=== PATIENT | male | born 1970 | race American Indian/Alaskan Native ===

== ENCOUNTER 2016-09-11 22:31 | Inpatient (IN) | payer MEDICAID, OTHER ==
[2016-09-11 22:31] VITALS: BMI 40.8
--- NOTE | 2016-09-12 00:17 | C.PDOC ---
History Of Present Illness Patient presents to the ER stating he hears voices telling him to hurt himself. Patient states he wants to take all of his blood pressure medication. Denies any homicidal ideation or physical complaints. Time Seen by Provider: 09/12/16 00:17 Chief Complaint (Nursing): Psychiatric Evaluation History Per: Patient History/Exam Limitations: no limitations Onset/Duration Of Symptoms: Hrs Current Symptoms Are (Timing): Still Present Suicide/Self Injury Attempted (Context): None Modifying Factor(s): None Severity: None Pain Scale Rating Of: 0 Associated Symptoms: Suicidal Thoughts, Suicidal Plan. denies: Depression Involuntary Hold By: None Recent travel outside of the [place]: No Past Medical History Reviewed: Historical Data, Nursing Documentation, Vital Signs Vital Signs: Last Vital Signs Temp 98 F 09/11/16 22:45 Pulse 86 09/11/16 22:45 Resp 20 09/11/16 22:45 BP 128/81 09/11/16 22:45 Pulse Ox 98 09/12/16 01:37 - Medical History PMH: Anxiety, Arthritis, Asthma, Bipolar Disorder, Cardia Arrhythmia ( Bradycardia), Depression, Diabetes, Gastritis, HTN, Hypercholesterolemia, Hyperlipidemia, Hypothyroidism (Synthroid), Schizophrenia Surgical History: Coronary Stent (2), Pacemaker - [facility] Procedures GROUP PSYCHOTHERAPY (07/11/16) INDIVID PSYCHOTHERAP NEC (10/05/14) INDIVIDUAL PSYCHOTHERAPY, BEHAVIORAL (02/04/16) INDIVIDUAL PSYCHOTHERAPY, COGNITIVE-BEHAVIORAL (04/27/16) INDIVIDUAL PSYCHOTHERAPY, SUPPORTIVE (04/27/16) OTHER GROUP THERAPY (10/05/14) PSYCHIAT DRUG THERAP NEC (11/30/14) Family History: States: CAD - Social History Hx Tobacco Use: Yes Hx Alcohol Use: Yes Hx Substance Use: No - Immunization History Hx Tetanus Toxoid Vaccination: Yes Hx Influenza Vaccination: Yes Hx Pneumococcal Vaccination: Yes Review Of Systems Constitutional: Negative for: Fever, Chills Gastrointestinal: Negative for: Nausea, Vomiting, Diarrhea Psych: Positive for: Suicidal ideation. Negative for: Other (Homicidal ideation ) Physical Exam - Physical Exam Appears: Non-toxic Skin: Warm, Dry Oral Mucosa: Moist Chest: Symmetrical, No Tenderness Cardiovascular: Rhythm Regular, No Murmur Respiratory: No Rales, No Rhonchi, No Wheezing Gastrointestinal/Abdominal: Soft, No Tenderness Neurological/Psych: Oriented x3 ED Course And Treatment - Laboratory Results Result Diagrams: 09/12/16 00:42 09/12/16 00:42 O2 Sat by Pulse Oximetry: 98 (Room air) Pulse Ox Interpretation: Normal Progress Note: Consulted case with crisis. Disposition Discussed With : Matheus Vázquez Comment: accepted the pt on his service and took over the care at 2:29 PM Doctor Will See Patient In The: Hospital Counseled Patient/Family Regarding: Studies Performed, Diagnosis - Disposition Disposition: HOSPITALIZED Disposition Time: :17 Condition: FAIR - POA Present On Arrival: None - Clinical Impression Clinical Impression: Depression - Scribe Statement The provider has reviewed the documentation as recorded by the Scribe Rocky Chavez All medical record entries made by the Scribe were at my direction and personally dictated by me. I have reviewed the chart and agree that the record accurately reflects my personal performance of the history, physical exam, medical decision making, and the department course for this patient. I have also personally directed, reviewed, and agree with the discharge instructions and disposition. Decision To Admit - Pt Status Changed To: Hospital Disposition Of: Inpatient - Admit Certification Admit to Inpatient:: After my assessment, the patient will require hospitalization for at least two midnights. This is because of the severity of symptoms shown, intensity of services needed, and/or the medical risk in this patient being treated as an outpatient. - InPatient: Physician Admission Certification: I certify that this patient requires 2 or more midnights of care for the following reason:: After my assessment, the patient will require hospitalization for at least two midnights. This is because of the severity of symptoms shown, intensity of services needed, and/or the medical risk in this patient being treated as an outpatient. - . Bed Request Type: Psychiatry Admitting Physician: Matheus Vázquez Patient Diagnosis: Depression
[2016-09-12 00:47] LABS: BASO # 0.1 K/uL (0.0-0.2); BASO % 1.1 % (0.0-2.0); EOS # 0.3 K/uL (0.0-0.7); EOS % 4.6 % (0.0-4.0); HEMOGLOBIN 10.9 g/dL (12.0-18.0); LYMPH # 1.8 K/uL (1.0-4.3); LYMPH % 24.9 % (20.0-40.0); MEAN CELL VOLUME 78.4 fL (80.0-94.0); MEAN CORPUSCULAR HGB CONC 31.9 g/dL (33.0-37.0); MEAN PLATELET VOLUME 7.8 fL (7.2-11.7); MONO # 0.5 K/uL (0.0-0.8); MONO % 6.8 % (0.0-10.0); NEUT # 4.4 K/uL (1.8-7.0); NEUT % 62.6 % (50.0-75.0); RBC 4.37 Mil/uL (4.40-5.90); RED CELL DISTRIBUTION WIDTH 17.5 % (11.5-14.5); WHITE BLOOD COUNT 7.1 K/uL (4.8-10.8)
[2016-09-12 00:56] LABS: SQUAMOUS EPITHIAL 1 /hpf (0-5); URINE BACTERIA RARE (<OCC); URINE BILIRUBIN NEGATIVE (NEGATIVE); URINE BLOOD NEGATIVE (NEGATIVE); URINE CLARITY Hazy (Clear); URINE COLOR Yellow (YELLOW); URINE GLUCOSE (UA) 2+ mg/dL (Normal); URINE LEUKOCYTE ESTERASE 1+ Leu/uL (Negative); URINE NITRATE NEGATIVE (NEGATIVE); URINE PROTEIN NEGATIVE (NEGATIVE); URINE UROBILINOGEN NORMAL mg/dL (0.2-1.0)
[2016-09-12 00:58] LABS: BARBITURATES, UR NEGATIVE (NEGATIVE)
[2016-09-12 00:59] LABS: ALB/GLOB RATIO 1.2 (1.0-2.1); AST/SGOT 23 U/L (17-59); BENZODIAZEPINES, UR NEGATIVE (NEGATIVE); GFR AFRICAN-AMERICAN > 60; GFR NON-AFRICAN AMERICAN > 60
[2016-09-12 01:00] LABS: ALT/SGPT 22 U/L (21-72); BLOOD UREA NITROGEN 15 mg/dL (9-20); CALCIUM 9.1 mg/dl (8.6-10.4)
[2016-09-12 01:01] LABS: OPIATES, UR NEGATIVE (NEGATIVE)
[2016-09-12 01:02] LABS: PHENCYCLIDINE, UR NEGATIVE (NEGATIVE)
[2016-09-12] MEDS ORDERED: Pneumococcal 23-Valent Vaccine IM ONE (05:09)
--- NOTE | 2016-09-12 11:31 | PCM.PSYCH ---
Initial Psychiatric Evaluation - Initial Psychiatric Evaluation Type of Admission: Voluntary Legal Status: Capacity Chief Complaint (in patient's own words): "I am depressed...hearing voices" History of Present Illness and Precipitating Events: The patient is seen, chart reviewed and case discussed. He is well-known to the senior writer and staff here from numerous previous admissions. This is a 46-year-old -[place]izen Of [place] male, single with no child, on disability , living alone in [place]. The patient admits to not following with referral to any program, i.e. [facility] in [place], because he feels "paranoid" among people. He also ran out of his medications recently, Lexapro and Abilify, but his [place] chart indicates he was given Prozac and Haldol. He states he does take his medications for medical reasons. He gets admitted every other month between [place] at [facility] due to his noncompliance. He used to take alcohol and cocaine but now he denies. He smokes 6 cigarettes a day. Currently, he reports depressive sxs and paranoia and AH telling him deragatory things or telling him to kill self. No plans or intentions now. PMH: DM, HTN psych hx: Schizophrenia (dx at 21y/o) Family psych hx: Depression (sister) Social hx: single, no children. Lives on his own. 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 Current Medications: Active Medications Generic Name Dose Route Start Last Admin Trade Name Freq PRN Reason Stop Dose Admin Acetaminophen 650 mg 09/12/16 11:26 Tylenol 325mg Tab PO Q6 PRN Pain, moderate (4-7) Amlodipine Besylate 5 mg 09/12/16 10:00 09/12/16 10:36 Norvasc PO 5 mg DAILY [facility] Administration Aripiprazole 10 mg 09/12/16 10:00 09/12/16 10:36 Abilify PO 10 mg DAILY [facility] Administration Aspirin 81 mg 09/12/16 10:00 Aspirin Chewable PO DAILY [facility] Clopidogrel Bisulfate 75 mg 09/12/16 10:00 Plavix PO DAILY [facility] Docusate Sodium 100 mg 09/12/16 10:00 09/12/16 10:36 Colace PO 100 mg BID [facility] Administration Escitalopram Oxalate 10 mg 09/12/16 11:30 Lexapro PO DAILY [facility] Famotidine 20 mg 09/12/16 10:00 09/12/16 10:36 Pepcid PO 20 mg BID [facility] Administration Ferrous Sulfate 325 mg 09/12/16 14:00 Feosol PO TID [facility] Insulin Glargine 30 unit 09/12/16 22:00 Lantus SC HS [facility] Insulin Human Regular 15 unit 09/12/16 11:30 Novolin R SC ACHS [facility] Nicotine 1 patch 09/12/16 11:30 Nicoderm Cq TD DAILY [facility] Rosuvastatin Calcium 10 mg 09/12/16 22:00 Crestor PO HS [facility] Past Psychiatric History - Past Psychiatric History Previous Treatment History: Inpatient Pertinent Medical Hx (Current Medical&Sleep Prob, Allergies): Allergies Allergy/AdvReac Type Severity Reaction Status Date / Time No Known Allergies Allergy Verified 08/16/16 06:58 Insulin Lispro [humALOG] 15 units SC AC #0 ml 03/30/16 Pantoprazole [Protonix EC Tab] 40 mg PO DAILY #30 ect 05/09/16 ARIPiprazole [Abilify] 10 mg PO DAILY #30 tab 07/17/16 Aspirin [Ecotrin] 81 mg PO DAILY 07/17/16 Atorvastatin [Lipitor] 20 mg PO HS tab 07/17/16 Citalopram [celEXA] 20 mg PO DAILY #30 tab 07/17/16 Clopidogrel [Plavix] 75 mg PO DAILY #30 tab 07/17/16 Insulin Detemir [Levemir] 48 units SC HS vial 07/17/16 Lisinopril [Zestril] 10 mg PO DAILY tab 07/17/16 amLODIPine [Norvasc] 5 mg PO DAILY tab 07/17/16 traZODone [Desyrel] 100 mg PO HS #30 tab 07/17/16 Aspirin [Aspirin Chewable] 81 mg PO DAILY #14 08/21/16 Atorvastatin [Lipitor] 20 mg PO DIN #14 tab 08/21/16 Benztropine [Cogentin] 1 mg PO HS #14 tab 08/21/16 Clopidogrel [Plavix] 75 mg PO DAILY #14 tab 08/21/16 Docusate [Colace] 100 mg PO BID #14 cap 08/21/16 FLUoxetine [Prozac] 40 mg PO DAILY #14 cap 05/30/17 Ferrous Sulfate [Feosol] 324 mg PO TID #14 ect 08/21/16 Haloperidol [Haldol] 5 mg PO DAILY #14 tab 08/21/16 Insulin Detemir [Levemir] 40 unit SC HS #14 unit 08/21/16 Insulin Lispro [humALOG] 15 units SC AC ml 08/21/16 LORazepam [Ativan] 0.5 mg PO BID PRN #14 tab 08/21/16 Lisinopril [Zestril] 10 mg PO DAILY #14 tab 08/21/16 Pantoprazole [Protonix EC Tab] 40 mg PO ACB #14 ect 08/21/16 amLODIPine [Norvasc] 5 mg PO DAILY #14 tab 08/21/16 traZODone [Desyrel] 100 mg PO HS PRN #14 tab 08/21/16 Review of Systems - Neurological Neurological: UNREMARKABLE - Psychiatric Psychiatric: Abnormal Sleep Pattern, Anhedonia, Anxiety, Depression, Difficulty Concentrating, Hallucinations, Hopelessness. absent: Homicidal Ideation, Suicidal Ideation Mental Status Examination - Personal Presentation Personal Presentation: Looks older than stated age - Affect Affect: Blunted - Motor Activity Motor Activity: Calm - Reliability in Providing Information Reliability in Providing Information: Fair - Speech Speech: Organized - Mood Mood: Depressed, Anxious - Formal Thought Process Formal Thought Process: Hallucinations, Paranoia, Perservation - Cognitive Functions Orientation: Person, Place, Situation, Time Sensorium: Alert Attention/Concentration: Attentive Estimate of Intelligence: Average Judgement: Intact, as evidence by: Insight regarding need for hospitalization Memory: Recent intact, as evidence by: Ability to recall events of the day, Remote intact, as evidenced by: Abilit to recall sig. life events - Risk Risk: Diminished functioning - Strength & Assets Inventory Strength & Assets Inventory: Cooperative - Limitations Limitations: Living alone DSM 5 DX - DSM 5 DSM 5 Diagnosis: Schizoaffective d/o - depressed - Recommended/Plan of Treatment Treatment Recommendations and Plan of Treatment: Abilify for AH and paranoia Lexapro for depression and anxiety gabapentin for anxiety Continue medical meds Attend groups and activities CBT and support Monitor labs re Iron deficiency anemia and DM Refer to [facility] Outpt program as she is refusing and has never regularly attended any DTP or partial program so fa 34 min Projected ELOS: 7 days Prognosis: good with treatment Discharge Plan and Discharge Criteria: no SI, AVH or del Refer to outpatient program - Smoking Cessation Smoking Cessation Initiated: Yes
[2016-09-12] MEDS: (Novolin R) Insulin Human Regular 100 units/ml vial SC SCH ×3 (11:46→21:35)
[2016-09-12] MEDS: (Lantus) Insulin Glargine, Recombinant SC SCH (21:19)
[2016-09-13] MEDS: (Novolin R) Insulin Human Regular 100 units/ml vial SC SCH ×4 (08:43→21:14)
--- NOTE | 2016-09-13 14:12 | PCM.PYCHPN ---
Psychiatric Progress Note - Psychiatric Progress Note Patient seen today, length of contact: 16 min Patient Chief Complaint: "I am still hearing voices" Problems Identified/Issues Discussed: The pt is seen, chart reviewed, case discussed with staff. The pt is compliant with medications and reports no side-effects. Symptoms are improving but needs more time to stabilize. After care discussed, support and psychoeducation given. Medication Change: No Medical Record Reviewed: Yes Mental Status Examination - Cognitive Function Orientation: Person, Place, Situation, Time Memory: Impaired Attention: Poor Concentration: Poor Association: WNL Fund of Knowledge: Poor - Mood Mood: Depressed, Anxious - Affect Affect: Blunted - Speech Speech: Slurred, Soft - Formal Thought Process Formal Thought Process: Hallucinations, Paranoia - Suicidal Ideation Suicidal Ideation: No - Homicidal Ideation Homicidal Ideation: No Goal/Treatment Plan - Goal/Treatment Plan Need for Continued Stay: Discharge may exacerbated symptoms, Severe functional impairment Progress Toward Problem(s) and Goals/Treatment Plan: Abilify for AH and paranoia Lexapro for depression and anxiety Gabapentin for anxiety Continue medical meds Attend groups and activities CBT and support Monitor labs re Iron deficiency anemia and DM Refer to [facility] Outpt program Estimated Date of D/C: 09/18/16
[2016-09-13] MEDS: Ergocalciferol 50,000 Intl Units Cap PO SCH (17:28)
[2016-09-13 20:46] LABS: IRON 46 ug/dL (49-181)
[2016-09-13 20:57] LABS: % IRON SATURATION 14 (20-55); TOTAL IRON BINDING CAPACITY 332 ug/dL (250-450)
[2016-09-13 21:12] LABS: FREE T4 0.88 ng/dL (0.78-2.19)
[2016-09-13] MEDS: (Lantus) Insulin Glargine, Recombinant SC SCH (21:12)
[2016-09-14] MEDS: (Novolin R) Insulin Human Regular 100 units/ml vial SC SCH ×4 (08:39→21:21)
--- NOTE | 2016-09-14 17:32 | PCM.PYCHPN ---
Psychiatric Progress Note - Psychiatric Progress Note Patient seen today, length of contact: 16 min Patient Chief Complaint: "I am depressed" Problems Identified/Issues Discussed: The pt is seen, chart reviewed, case discussed with staff. Support given, CBT used briefly No new symptoms reported, improving slowly and needs some more time No SEs from medications, risks discussed. After care discussed -SW will now refer to [facility] as [facility] rejected him due to numerous no-shows [facility] Med[facility] Change: No Medical Record Reviewed: Yes Mental Status Examination - Cognitive Function Orientation: Person, Place, Situation, Time Memory: Impaired Attention: Poor Concentration: Poor Association: WNL Fund of Knowledge: Poor - Mood Mood: Depressed, Anxious - Affect Affect: Blunted - Speech Speech: Slurred, Soft - Formal Thought Process Formal Thought Process: Hallucinations, Paranoia - Suicidal Ideation Suicidal Ideation: No - Homicidal Ideation Homicidal Ideation: No Goal/Treatment Plan - Goal/Treatment Plan Need for Continued Stay: Discharge may exacerbated symptoms, Severe functional impairment Progress Toward Problem(s) and Goals/Treatment Plan: Abilify for AH and paranoia Lexapro for depression and anxiety Gabapentin for anxiety Continue medical meds Attend groups and activities CBT and support Monitor labs re Iron deficiency anemia and DM - he does have BERENICE. Stool blood pending. [facility] Outpt program but consider [facility] too, or PACT Estimated Date of D/C: 09/18/16
[2016-09-14] MEDS: (Lantus) Insulin Glargine, Recombinant SC SCH (21:16)
[2016-09-15] MEDS: (Novolin R) Insulin Human Regular 100 units/ml vial SC SCH ×2 (07:56→11:58)
[2016-09-15] MEDS: (Novolog) Insulin Aspart, Recombinant 100 u/ml 10 ml vial SC SCH (17:23)
[2016-09-15] MEDS: (Lantus) Insulin Glargine, Recombinant SC SCH (21:29)
[2016-09-16 07:00] VITALS: O2SAT 98
[2016-09-16] MEDS: (Novolog) Insulin Aspart, Recombinant 100 u/ml 10 ml vial SC SCH ×3 (08:43→16:12)
[2016-09-16] MEDS: (Lantus) Insulin Glargine, Recombinant SC SCH (21:41)
--- NOTE | 2016-09-16 23:48 | PCM.PYCHPN ---
Psychiatric Progress Note - Psychiatric Progress Note Patient seen today, length of contact: 15 MIN Patient Chief Complaint: I HEAR THE VOICES MOSTLY AT [place] Medical Problems: NOTHING ACUTE Diagnostic Results: REVIEWED DSM 5 Symptoms Update: AUDITORY HALLUCINATIONS Medication Change: Yes (INCREASE ABILIFY) Medical Record Reviewed: Yes Mental Status Examination - Cognitive Function Orientation: Person, Place, Situation, Time Memory: Impaired Attention: Poor Concentration: WNL Association: WNL Fund of Knowledge: Poor - Mood Mood: Depressed, Anxious - Affect Affect: Blunted - Speech Speech: Slurred, Soft - Formal Thought Process Formal Thought Process: Hallucinations, Paranoia - Suicidal Ideation Suicidal Ideation: No - Homicidal Ideation Homicidal Ideation: No Goal/Treatment Plan - Goal/Treatment Plan Need for Continued Stay: Remain at risks for inpatient hospitalization, Discharge may exacerbated symptoms, Severe functional impairment Progress Toward Problem(s) and Goals/Treatment Plan: SCHIZOAFFECTIVE DISORDER DEPRESSED ABILIFY INCREASE ATTENDING GROUPS Estimated Date of D/C: 09/18/16 - Smoking Cessation Smoking Cessation Initiated: Yes
--- NOTE | 2016-09-17 02:40 | PCM.PYCHPN ---
Psychiatric Progress Note - Psychiatric Progress Note Patient seen today, length of contact: 15 MIN Patient Chief Complaint: THE VOICESARE NOT BAS LAST NIGHT Problems Identified/Issues Discussed: SYMPTOM MANAGEMENT GROUNDING DISTRACTION Medical Problems: NOTHING ACUTE Diagnostic Results: REVIEWED DSM 5 Symptoms Update: Medication Change: No Medical Record Reviewed: Yes Mental Status Examination - Cognitive Function Orientation: Person, Place, Situation, Time Memory: Intact Attention: WNL Concentration: WNL Association: WNL Fund of Knowledge: WNL - Mood Mood: Anxious - Speech Speech: Appropriate - Formal Thought Process Formal Thought Process: Hallucinations - Suicidal Ideation Suicidal Ideation: No - Homicidal Ideation Homicidal Ideation: No Goal/Treatment Plan - Goal/Treatment Plan Need for Continued Stay: Remain at risks for inpatient hospitalization, Discharge may exacerbated symptoms, Severe functional impairment Progress Toward Problem(s) and Goals/Treatment Plan: SCHIZOAFFECTIVE DISORDER DEPRESSED [place] [facility] MED MANAGEMENT Estimated Date of D/C: 09/18/16 - Smoking Cessation Smoking Cessation Initiated: No
[2016-09-17] MEDS: (Novolog) Insulin Aspart, Recombinant 100 u/ml 10 ml vial SC SCH ×3 (08:47→16:42)
[2016-09-17] MEDS ORDERED: Pantoprazole 40 mg EC Tab PO SCH (10:00)
--- NOTE | 2016-09-17 13:47 | PCM.PYCHPN ---
Psychiatric Progress Note - Psychiatric Progress Note Patient seen today, length of contact: 15 min Patient Chief Complaint: "I am a little better" Problems Identified/Issues Discussed: The pt is seen, chart reviewed, case discussed with staff. Support given, CBT used briefly No new symptoms reported, improving slowly and needs some more time No SEs from medications, risks discussed. After care discussed Medication Change: No Medical Record Reviewed: Yes Mental Status Examination - Cognitive Function Orientation: Person, Place, Situation, Time Memory: Intact Attention: WNL Concentration: WNL Association: WNL Fund of Knowledge: WNL - Mood Mood: Anxious - Affect Affect: Blunted - Speech Speech: Appropriate - Formal Thought Process Formal Thought Process: Hallucinations - Suicidal Ideation Suicidal Ideation: No - Homicidal Ideation Homicidal Ideation: No Goal/Treatment Plan - Goal/Treatment Plan Need for Continued Stay: Remain at risks for inpatient hospitalization, Discharge may exacerbated symptoms, Severe functional impairment Progress Toward Problem(s) and Goals/Treatment Plan: Abilify for AH and paranoia Lexapro for depression and anxiety Gabapentin for anxiety Continue medical meds Attend groups and activities CBT and support [facility] but consider [facility] too, or [facility] Estimated Date of D/C: 09/18/16
[2016-09-17] MEDS: (Lantus) Insulin Glargine, Recombinant SC SCH (21:39)
[2016-09-18] MEDS: (Novolog) Insulin Aspart, Recombinant 100 u/ml 10 ml vial SC SCH ×3 (08:38→16:44)
[2016-09-18] MEDS: (Lantus) Insulin Glargine, Recombinant SC SCH (21:41)
--- NOTE | 2016-09-18 23:24 | PCM.PYCHPN ---
Psychiatric Progress Note - Psychiatric Progress Note Patient seen today, length of contact: 15 min Patient Chief Complaint: "OK" Problems Identified/Issues Discussed: The pt is seen, chart reviewed, case discussed with staff. No SEs from medications, risks discussed. After care discussed - [facility] if denied by [facility] Support given Getting close to dc as he is almost baseline Medication Change: No Medical Record Reviewed: Yes Mental Status Examination - Cognitive Function Orientation: Person, Place, Situation, Time Memory: Intact Attention: WNL Concentration: WNL Association: WNL Fund of Knowledge: WNL - Mood Mood: Anxious - Affect Affect: Blunted - Speech Speech: Appropriate - Formal Thought Process Formal Thought Process: Hallucinations - Suicidal Ideation Suicidal Ideation: No - Homicidal Ideation Homicidal Ideation: No Goal/Treatment Plan - Goal/Treatment Plan Need for Continued Stay: Remain at risks for inpatient hospitalization, Discharge may exacerbated symptoms, Severe functional impairment Progress Toward Problem(s) and Goals/Treatment Plan: Abilify for AH and paranoia Lexapro for depression and anxiety Gabapentin for anxiety Continue medical meds Attend groups and activities CBT and support Refer to [facility] program but consider [facility] too, or [facility] Estimated Date of D/C: 09/20/16 If changed, why: Not ready - still hearing voices at times
[2016-09-19] MEDS: (Novolog) Insulin Aspart, Recombinant 100 u/ml 10 ml vial SC SCH ×3 (08:34→17:21)
--- NOTE | 2016-09-19 10:27 | PCM.PYCHPN ---
Psychiatric Progress Note - Psychiatric Progress Note Patient seen today, length of contact: 16 min Patient Chief Complaint: "No complaints" Problems Identified/Issues Discussed: The pt is seen, chart reviewed, case discussed with staff. No SEs from medications, risks discussed again/ After care discussed - [facility] doesn't take his insurance. [facility] will call 2 other clinics. The pt does not want partial or day treatment Support given Medication Change: No Medical Record Reviewed: Yes Mental Status Examination - Cognitive Function Orientation: Person, Place, Situation, Time Memory: Intact Attention: WNL Concentration: WNL Association: WNL Fund of Knowledge: WNL - Mood Mood: Anxious - Affect Affect: Blunted - Speech Speech: Appropriate - Formal Thought Process Formal Thought Process: Hallucinations - Suicidal Ideation Suicidal Ideation: No - Homicidal Ideation Homicidal Ideation: No Goal/Treatment Plan - Goal/Treatment Plan Need for Continued Stay: Remain at risks for inpatient hospitalization, Discharge may exacerbated symptoms, Severe functional impairment Progress Toward Problem(s) and Goals/Treatment Plan: Abilify for AH and paranoia Lexapro for depression and anxiety Gabapentin for anxiety Continue medical meds Attend groups and activities CBT and support Refer to [facility] Out[facility] program but consider [facility] too, or [facility] Estimated Date of D/C: 09/20/16
[2016-09-19] MEDS: (Lantus) Insulin Glargine, Recombinant SC SCH (21:08)
[2016-09-20 09:23] VITALS: RESP 20
[2016-09-20] MEDS: (Novolog) Insulin Aspart, Recombinant 100 u/ml 10 ml vial SC SCH ×3 (10:52→16:03)
--- NOTE | 2016-09-20 13:49 | PCM.PYCHPN ---
Psychiatric Progress Note - Psychiatric Progress Note Patient seen today, length of contact: 15 min Patient Chief Complaint: "I'm fine" Problems Identified/Issues Discussed: The pt is seen, chart reviewed, case discussed with staff. Support given, CBT used briefly No new symptoms reported, improving slowly and needs more time No SEs from medications, risks discussed. After care discussed - SW is working on finding a place to him. Medication Change: No Medical Record Reviewed: Yes Mental Status Examination - Cognitive Function Orientation: Person, Place, Situation, Time Memory: Intact Attention: WNL Concentration: WNL Association: WNL Fund of Knowledge: WNL - Mood Mood: Anxious - Affect Affect: Blunted - Speech Speech: Appropriate - Formal Thought Process Formal Thought Process: Hallucinations - Suicidal Ideation Suicidal Ideation: No - Homicidal Ideation Homicidal Ideation: No Goal/Treatment Plan - Goal/Treatment Plan Need for Continued Stay: Remain at risks for inpatient hospitalization, Discharge may exacerbated symptoms, Severe functional impairment Progress Toward Problem(s) and Goals/Treatment Plan: Abilify for AH and paranoia Lexapro for depression and anxiety Gabapentin for anxiety Continue medical meds Attend groups and activities CBT and support Outpt psych referral Estimated Date of D/C: 09/21/16
[2016-09-20] MEDS: Ergocalciferol 50,000 Intl Units Cap PO SCH (14:18)
[2016-09-20] MEDS: (Lantus) Insulin Glargine, Recombinant SC SCH (21:15)
[2016-09-21 08:35] VITALS: BP 123/73; PULSE 86; TEMP 98.5
--- NOTE | 2016-09-21 08:49 | PCM.PYCHDC ---
Mental Status Examination - Mental Status Examination Orientation: Person, Place, Situation, Time Memory: Intact Mood: Anxious Affect: Constricted Speech: Slurred Attention: WNL Concentration: Poor Association: WNL Fund of Knowledge: WNL Formal Thought Process: No Impairment Suicidal Ideation: No Current Homicidal Ideation?: No Discharge Summary - Discharge Note Reason for Hospitalization: Feeling depressed, suicidal, hearing voices Psychiatric History (includes Medical, Family, Personal Hx): Multiple admissions Laboratory Data: Abnormal Lab Results 09/20/16 09/20/16 09/20/16 11:45 12:35 15:30 POC Glucose (mg/dL) 126 H 158 H 240 H 09/20/16 09/21/16 20:06 07:22 POC Glucose (mg/dL) 170 H 180 H Consultations:: List each consultation separately and include: 1. Reason for request. 2. Findings. 3. Follow-up Summary of Hospital Course include:: 1. Description of specific treatment plan utilized for patients during their course of treatmen. 2. Summarize the time- course for resolution of acute symptoms and/or regressed behaviors. 3. Describe issues identified and worked on during hospitalization. 4. Describe medication utilized. 5. Describe medical problems identified and treated. 6. Reassessment of suicide risk Summary of Hospital Course: On admission: The patient is seen, chart reviewed and case discussed. He is well-known to the creative writer and staff here from numerous previous admissions. This is a 46-year-old -[place] male, single with no child, on disability , living alone in [place]. The patient admits to not following with referral to any program, i.e. [facility] in [place], because he feels "paranoid" among people. He also ran out of his medications recently, Lexapro and Abilify, but his [place] chart indicates he was given Prozac and Haldol. He states he does take his medications for medical reasons. He gets admitted every other month between [facility] at [facility] due to his noncompliance. He used to take alcohol and cocaine but now he denies. He smokes 6 cigarettes a day. Currently, he reports depressive sxs and paranoia and AH telling him deragatory things or telling him to kill self. No plans or intentions now. PMH: DM, HTN psych hx: Schizophrenia (dx at 21y/o) Family psych hx: Depression (sister) Social hx: single, no children. Lives on his own. 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 Hospital course: The pt was admitted and started on treatment with psychotherapy, support, psychoeducation and medications. MT and CBT used. The pt attended groups and activities, as well as milieu therapy. All the risks and benefits of medications are discussed and the patient understood and agreed. The pt improved with the treatments provided. After care discussed with the patient. He declined any IOP or partial or day program, but agreed to attend regular outpt clinic. he is referred to [facility]. - Final Diagnosis (DSM 5) Condition upon Discharge: IMPROVED DSM 5: Schizoaffective d/o - depressed Disposition: HOME/ ROUTINE Follow-up Treatment Plan: Continue below medications after discharge. Follow after care plan as discussed at [facility]. Use relapse prevention skills Return to ER or call 911 if suicidal, homicidal or symptoms relapse. Stay away from stress, alcohol and drugs. See primary doctor once a year. Prescriptions/Medication Reconciliation: amLODIPine [Norvasc] 5 mg PO DAILY #30 tab ARIPiprazole [Abilify] 15 mg PO DAILY #30 tab Aspirin [Aspirin Chewable] 81 mg PO DAILY #30 Clopidogrel [Plavix] 75 mg PO DAILY #30 tab Ergocalciferol [Drisdol 50,000 Intl Units Cap] 1 cap PO Q7D #30 cap Escitalopram [Lexapro] 10 mg PO DAILY #30 tab Famotidine [Pepcid] 20 mg PO BID #60 tab Ferrous Sulfate [Feosol] 325 mg PO TID #90 tab Rosuvastatin Calcium [Crestor] 10 mg PO HS #30 tab traZODone [Desyrel] 100 mg PO HS #30 tab - Smoking Cessation Smoking Cessation Medication prescribed: No - Antipsychotic Medications Pt discharged on 2 or more routine antipsychotic medications: No
[2016-09-21] MEDS: (Novolog) Insulin Aspart, Recombinant 100 u/ml 10 ml vial SC SCH (08:50)
== END 2016-09-21 11:15 | disposition home or self-care (01) | DRG 430 ==
LOC: C.ER 22:31 → C.5E 09-12 02:30
PROVIDERS: ADMIT Emergency Medicine; ATTEND Emergency Medicine
PROC: GZ58ZZZ Individual Psychotherapy, Cognitive-Behavioral (ICD-10-PCS; principal; 2016-09-12)
PROC: GZ56ZZZ Individual Psychotherapy, Supportive (ICD-10-PCS; 2016-09-12)
DX: F25.1 Schizoaffective disorder, depressive type (principal); E11.9 Type 2 diabetes mellitus without complications; F22 Delusional disorders; I10 Essential (primary) hypertension; D50.9 Iron deficiency anemia, unspecified; F41.9 Anxiety disorder, unspecified; F17.210 Nicotine dependence, cigarettes, uncomplicated; Z81.8 Family history of other mental and behavioral disorders; Z91.19 Patient's noncompliance with other medical treatment and regimen

== ENCOUNTER 2017-04-26 22:04 | Inpatient (IN) | payer MEDICAID, OTHER ==
[2017-04-26 22:05] VITALS: BMI 37.5
--- NOTE | 2017-04-26 22:55 | C.PDOC ---
History Of Present Illness 46 year old male presents to the ED c/o hearing voice that are telling him to kill himself. Patient was seen in the ED on January for the same complaints. Patient denies fever, chills, SOB, CP, recent injury, fall, trauma. Chief Complaint (Nursing): Psychiatric Evaluation History Per: Patient History/Exam Limitations: no limitations Onset/Duration Of Symptoms: Days Current Symptoms Are (Timing): Still Present Suicide/Self Injury Attempted (Context): Other Modifying Factor(s): None Severity: None Associated Symptoms: Paranoia, Suicidal Thoughts Involuntary Hold By: None Recent travel outside of the [place]: No Additional History Per: Patient Past Medical History Reviewed: Historical Data, Nursing Documentation, Vital Signs Vital Signs: Last Vital Signs Temp 98.3 F 04/26/17 22:21 Pulse 83 04/27/17 00:50 Resp 19 04/27/17 00:50 BP 126/85 04/27/17 00:50 Pulse Ox 100 04/27/17 00:50 - Medical History PMH: Anxiety, Arthritis, Asthma, Bipolar Disorder, Cardia Arrhythmia ( Bradycardia), CHF, Depression, Diabetes, Gastritis, HTN (takes norvasc 5 mg od) , Hypercholesterolemia, Hyperlipidemia, Hypothyroidism (NO MEDS PER PT), Schizophrenia Denies: Hepatitis, HIV, Chronic Kidney Disease, Seizures, Sickle Cell Disease , Sexually Transmitted Disease Surgical History: Coronary Stent (2), Pacemaker (to left side chest) - [facility] Procedures FLUOROSCOPY OF LEFT HEART USING LOW OSMOLAR CONTRAST (01/23/17) FLUOROSCOPY OF MULT COR ART USING L OSM CONTRAST (01/23/17) GROUP PSYCHOTHERAPY (02/04/17) INDIVID PSYCHOTHERAP NEC (10/05/14) INDIVIDUAL PSYCHOTHERAPY, BEHAVIORAL (02/04/16) INDIVIDUAL PSYCHOTHERAPY, COGNITIVE-BEHAVIORAL (02/04/17) INDIVIDUAL PSYCHOTHERAPY, SUPPORTIVE (09/12/16) MEASURE OF CARDIAC SAMPL & PRESSURE, L HEART, PERC APPROACH (01/23/17) MEASUREMENT OF CARDIAC PACEMAKER, EXTERNAL APPROACH (01/23/17) MEDICATION MANAGEMENT (12/23/16) OTHER GROUP THERAPY (10/05/14) PSYCHIAT DRUG THERAP NEC (11/30/14) Family History: States: CAD - Social History Hx Tobacco Use: Yes Hx Alcohol Use: Yes Hx Substance Use: No - Immunization History Hx Tetanus Toxoid Vaccination: Yes Hx Influenza Vaccination: Yes Hx Pneumococcal Vaccination: Yes Review Of Systems Constitutional: Negative for: Fever, Chills Cardiovascular: Negative for: Chest Pain, Palpitations Respiratory: Negative for: Cough, Shortness of Breath Gastrointestinal: Negative for: Nausea, Vomiting, Abdominal Pain Skin: Negative for: Rash Neurological: Negative for: Weakness, Numbness Psych: Positive for: Psychosis, Suicidal ideation Physical Exam - Physical Exam Appears: Non-toxic, No Acute Distress Skin: Normal Color, Warm, Dry Head: Atraumatic, Normacephalic Eye(s): bilateral: Normal Inspection Nose: No Discharge, No Deformity Oral Mucosa: Moist Neck: Normal ROM, Supple Chest: Symmetrical Cardiovascular: Rhythm Regular, No Murmur Respiratory: Normal Breath Sounds, No Rales, No Rhonchi, No Wheezing Gastrointestinal/Abdominal: Soft, No Tenderness, No Guarding, No Rebound Extremity: Normal ROM, No Pedal Edema, No Calf Tenderness, No Deformity, No Swelling Neurological/Psych: Oriented x3, Normal Speech, Normal Cognition Gait: Steady ED Course And Treatment - Laboratory Results Result Diagrams: 04/26/17 23:18 04/26/17 23:18 O2 Sat by Pulse Oximetry: 99 (On RA) Pulse Ox Interpretation: Normal Medical Decision Making Medical Decision Making: Impression : hallucinations Plan: * Labs * UA Disposition Discussed With DrAgnes: Nolan Anthony Doctor Will See Patient In The: Hospital Counseled Patient/Family Regarding: Diagnosis - Disposition Disposition: HOSPITALIZED Disposition Time: 01:02 Condition: STABLE Forms: [facility] (Martiniquais) - POA Present On Arrival: None - Clinical Impression Clinical Impression: Schizoaffective disorder, Diabetes mellitus - Scribe Statement The provider has reviewed the documentation as recorded by the Scribchino Christie All medical record entries made by the Mitzyibchino were at my direction and personally dictated by me. I have reviewed the chart and agree that the record accurately reflects my personal performance of the history, physical exam, medical decision making, and the department course for this patient. I have also personally directed, reviewed, and agree with the discharge instructions and disposition.
[2017-04-26 23:22] LABS: BASO % 0.6 % (0.0-2.0); EOS # 0.1 K/uL (0.0-0.7); EOS % 1.7 % (0.0-4.0); HEMOGLOBIN 10.4 g/dL (12.0-18.0); LYMPH # 1.5 K/uL (1.0-4.3); LYMPH % 19.6 % (20.0-40.0); MEAN CELL VOLUME 77.1 fL (80.0-94.0); MEAN CORPUSCULAR HGB CONC 32.4 g/dL (33.0-37.0); MEAN PLATELET VOLUME 7.9 fL (7.2-11.7); MONO # 0.7 K/uL (0.0-0.8); MONO % 9.7 % (0.0-10.0); NEUT # 5.1 K/uL (1.8-7.0); NEUT % 68.4 % (50.0-75.0); RBC 4.16 Mil/uL (4.40-5.90); RED CELL DISTRIBUTION WIDTH 17.3 % (11.5-14.5); WHITE BLOOD COUNT 7.4 K/uL (4.8-10.8)
[2017-04-26 23:24] LABS: SQUAMOUS EPITHIAL 1 /hpf (0-5); URINE BILIRUBIN NEGATIVE (NEGATIVE); URINE BLOOD NEGATIVE (NEGATIVE); URINE CLARITY Clear (Clear); URINE COLOR Yellow (YELLOW); URINE GLUCOSE (UA) 3+ mg/dL (Normal); URINE LEUKOCYTE ESTERASE NEG Leu/uL (Negative); URINE NITRATE NEGATIVE (NEGATIVE); URINE PROTEIN NEGATIVE (NEGATIVE)
[2017-04-26 23:37] LABS: ALB/GLOB RATIO 1.3 (1.0-2.1); ALBUMIN 4.3 g/dL (3.5-5.0); ALT/SGPT 26 U/L (21-72); AST/SGOT 29 U/L (17-59); BLOOD UREA NITROGEN 14 mg/dL (9-20); CALCIUM 9.5 mg/dl (8.6-10.4); GFR AFRICAN-AMERICAN > 60; GFR NON-AFRICAN AMERICAN > 60
[2017-04-26 23:38] LABS: BARBITURATES, UR NEGATIVE (NEGATIVE); BENZODIAZEPINES, UR NEGATIVE (NEGATIVE); OPIATES, UR NEGATIVE (NEGATIVE); PHENCYCLIDINE, UR NEGATIVE (NEGATIVE)
[2017-04-26] MEDS ORDERED: Sodium Chloride 0.9% 1,000 ML IV ONE (23:58)
[2017-04-27] MEDS ORDERED: (Novolin R) Insulin Human Regular 100 units/ml vial IV STA
[2017-04-27] MEDS ORDERED: (Novolin R) Insulin Human Regular 100 units/ml vial ONE (00:10)
[2017-04-27] MEDS ORDERED: Sodium Chloride 0.9% 1,000 ML ONE (00:10)
[2017-04-27] MEDS ORDERED: Pneumococcal 23-Valent Vaccine IM ONE (02:45)
--- NOTE | 2017-04-27 03:02 | PCM.BM ---
<EscalanteJosefina peresn - Last Filed: 04/27/17 02:59> Treatment Plan Problems - Problems identified on initial assessmt Depression Date Initiated: 04/27/17 Time Initiated: 03:00 Assessment reference: NA Status: Active Suicidal Ideations Date Initiated: 04/27/17 Time Initiated: 03:00 Assessment reference: NA Status: Monitor Substance Abuse Date Initiated: 04/27/17 Time Initiated: 03:01 Assessment reference: NA Status: Active Treatment assets and liabiliti Patient Assests: adapts well, cooperative, self-reliant, ADL independent, negotiates basic needs, cognitively intact Patient Liabilities: live alone, dietary restrictions, substance abuse, medical problems - Milieu Protocol Maintain good personal hygiene: daily Encourage regular showers, daily Remind patient to perform daily oral care, daily Assist patient to perform ADL's Maintain personal safety: every shift Educate patient to report safety concerns to staff, every shift Monitor environment for contraband/sharps Medication safety: Monitor for expected outcome, potential side effects: every shift, Assess barriers to learning: every shift, Assess readiness for medication education: every shift <Ariana Moore - Last Filed: 04/29/17 11:07> Family Contact Family involvement: Family/SO is involved Family contact: Patient declines to allow family contact at present - Goals for Treatment Patient goals for treatment: "I need my meds." Discharge/Continuing Care - Education Needs Education Needs: Patient Medication, Patient Coping Skills - Discharge Discharge Criteria: Tolerates medication w/o severe side effects, Free of Suicidal thoughts, Reduction of target symptoms Discharge to:: Home - Treatment Team Participation Discussed with Family/SO: No Was Patient/Family/SO present at Treatment Team Meeting: Yes <Nolan Anthony - Last Filed: 04/29/17 11:10> - Diagnosis (1) Schizoaffective disorder Status: Chronic Interventions: 04/29/17 11:09 * Assess/adjust medications daily and /or as needed * See patient on an individual basis 7x/week to assess status of hallucinations * Discuss risks, benefits, side effects and alternatives of medications *
[2017-04-27] MEDS: (Novolin R) Insulin Human Regular 100 units/ml vial SC SCH ×3 (08:05→17:03)
[2017-04-27] MEDS: Pantoprazole 20 mg EC Tab PO SCH (09:45)
--- NOTE | 2017-04-27 09:49 | PCM.PSYCH ---
Initial Psychiatric Evaluation - Initial Psychiatric Evaluation Type of Admission: Voluntary Legal Status: Capacity Current Medications: Active Medications Generic Name Dose Route Start Last Admin Trade Name Sanchez PRN Reason Stop Dose Admin Amlodipine Besylate 5 mg 04/27/17 10:00 04/27/17 09:43 Norvasc PO Not Given DAILY FROYLAN Aspirin 81 mg 04/27/17 10:00 04/27/17 09:45 Aspirin Chewable PO 81 mg DAILY FROYLAN Administration Citalopram Hydrobromide 20 mg 04/27/17 10:00 04/27/17 09:45 Celexa PO 20 mg DAILY FROYLAN Administration Insulin Detemir 45 unit 04/27/17 22:00 Levemir SC HS FROYLAN Insulin Human Regular 15 unit 04/27/17 07:30 04/27/17 08:05 Novolin R SC 15 unit AC FROYLAN Administration Lisinopril 10 mg 04/27/17 10:00 04/27/17 09:43 Zestril PO Not Given DAILY FROYLAN Pantoprazole Sodium 20 mg 04/27/17 10:00 04/27/17 09:45 Protonix Ec Tab PO 20 mg DAILY FROYLAN Administration Risperidone 1 mg 04/27/17 10:00 04/27/17 09:45 Risperdal Tab PO 1 mg DAILY FROYLAN Administration Risperidone 2 mg 04/27/17 22:00 Risperdal Tab PO HS FROYLAN Rosuvastatin Calcium 5 mg 04/27/17 22:00 Crestor PO HS FROYLAN Trazodone HCl 100 mg 04/27/17 22:00 Desyrel PO HS FROYLAN Past Psychiatric History - Past Psychiatric History Previous Treatment History: Inpatient Pertinent Medical Hx (Current Medical&Sleep Prob, Allergies): Allergies Allergy/AdvReac Type Severity Reaction Status Date / Time No Known Allergies Allergy Verified 04/26/17 22:26 Pantoprazole [Protonix EC Tab] 40 mg PO DAILY #30 ect 05/09/16 Lisinopril [Zestril] 10 mg PO DAILY tab 07/17/16 Aspirin [Aspirin Chewable] 81 mg PO DAILY #14 08/21/16 Fluticasone Nasal [Flonase] 1 actuation NS DAILY spr 12/31/16 Insulin Detemir [Levemir] 45 unit SC AMHS 14 Days unit 12/31/16 Insulin Lispro [humALOG] 15 units SC TID 14 Days ml 12/31/16 amLODIPine [Norvasc] 5 mg PO DAILY tab 12/31/16 Atorvastatin [Lipitor] 20 mg PO DAILY #1 tab 01/25/17 Citalopram [celEXA] 20 mg PO DAILY 30 Days #30 tab 02/13/17 Insulin Detemir [Levemir] 45 units SC HS vial 02/13/17 Risperidone [Risperdal M-TAB] 1 mg PO DAILY 30 Days #30 odt 02/13/17 Risperidone [Risperdal M-TAB] 2 mg PO HS 30 Days #30 odt 02/13/17 traZODone [Desyrel] 100 mg PO HS 30 Days #30 tab 02/13/17 Review of Systems - Review of Systems All systems: reviewed and no additional remarkable complaints except - Psychiatric Psychiatric: Anxiety, Auditory Hallucinations, Depression, Hopelessness, Irritability, Suicidal Ideation Mental Status Examination - Personal Presentation Personal Presentation: Looks stated age - Affect Affect: Constricted, Depressed - Motor Activity Motor Activity: Psychomotor Retardation - Reliability in Providing Information Reliability in Providing Information: Poor, due to alteration in thoughts, Poor , due to altered mood - Speech Speech: Disorganized - Mood Mood: Depressed, Anxious - Formal Thought Process Formal Thought Process: Hallucinations, Delusions, Paranoia, Loosening of associations - Hallucinations/Delusions Hallucinations: Auditory Delusions: Persecution - Obsessions/Compulsions Obsessions: No Compulsions: No - Cognitive Functions Orientation: Person, Place, Situation, Time Sensorium: Alert Attention/Concentration: Attentive Abstract Thinking: [place] Estimate of Intelligence: Below average Judgement: Imparied, as evidence by: Poor judgement, Imparied, as evidence by: Lack of insight into illness - Risk Risk: Suicidal, Diminished functioning - Limitations Limitations: Living alone DSM 5 DX - DSM 5 DSM 5 Diagnosis: Schizoaffective disorder depressive type - Recommended/Plan of Treatment Treatment Recommendations and Plan of Treatment: Schizoaffective disorder depressive type -CBT -Psycheducation -Supportive therapy, group therapy, individual therapy -Celexa 20mg PO daily -Risperdal 2 mg PO HS -Trazodone HCl 100 mg PO HS - Smoking Cessation Smoking Cessation Initiated: No
[2017-04-27] MEDS: Insulin Detemir 100 units/ml Vial (Levemir) SC SCH (21:18)
[2017-04-28] MEDS: (Novolin R) Insulin Human Regular 100 units/ml vial SC SCH ×3 (07:45→17:12)
[2017-04-28] MEDS: Pantoprazole 20 mg EC Tab PO SCH (09:08)
--- NOTE | 2017-04-28 11:50 | PCM.PYCHPN ---
Psychiatric Progress Note - Psychiatric Progress Note Patient seen today, length of contact: 15 min Medication Change: Yes (Start Celexa) Medical Record Reviewed: Yes Mental Status Examination - Cognitive Function Orientation: Person, Place, Situation, Time Memory: Intact Attention: WNL Concentration: Poor Association: Loose Fund of Knowledge: Poor - Mood Mood: Depressed, Anxious - Affect Affect: Constricted, Depressed - Speech Speech: Soft - Formal Thought Process Formal Thought Process: Hallucinations, Delusions, Paranoia, Loosening of associations - Suicidal Ideation Suicidal Ideation: No - Homicidal Ideation Homicidal Ideation: No Goal/Treatment Plan - Goal/Treatment Plan Need for Continued Stay: Severe depression anxiety, Severe functional impairment Progress Toward Problem(s) and Goals/Treatment Plan: Schizoaffective disorder depressed type -CBT -Psycheducation -Supportive therapy, group therapy, individual therapy -Start Celexa 20mg PO daily -Start Risperdal 1 mg PO daily -Risperdal 2 mg PO HS -Trazodone HCl 100 mg PO HS - Smoking Cessation Smoking Cessation Initiated: No
[2017-04-28] MEDS: Insulin Detemir 100 units/ml Vial (Levemir) SC SCH (21:06)
[2017-04-29] MEDS: (Novolin R) Insulin Human Regular 100 units/ml vial SC SCH ×3 (08:22→16:42)
[2017-04-29] MEDS: Pantoprazole 20 mg EC Tab PO SCH (09:38)
--- NOTE | 2017-04-29 11:07 | PCM.PYCHPN ---
Psychiatric Progress Note - Psychiatric Progress Note Patient seen today, length of contact: 15 min Patient Chief Complaint: "I'm still hearing voices." Problems Identified/Issues Discussed: Pt states he is still depressed and experiencing auditory command hallucinations telling him to kill himself. Medical Problems: CAD, HTN, DM without neuropathy. Medication Change: Yes (Start Abilify) Medical Record Reviewed: Yes Mental Status Examination - Cognitive Function Orientation: Person, Place, Situation, Time Memory: Intact Attention: WNL Concentration: Poor Association: WNL Fund of Knowledge: Poor - Mood Mood: Depressed, Anxious - Affect Affect: Constricted - Speech Speech: Soft - Formal Thought Process Formal Thought Process: Hallucinations, Delusions, Paranoia - Suicidal Ideation Suicidal Ideation: No - Homicidal Ideation Homicidal Ideation: No Goal/Treatment Plan - Goal/Treatment Plan Need for Continued Stay: Severe depression anxiety, Severe functional impairment Progress Toward Problem(s) and Goals/Treatment Plan: Schizoaffective disorder depressed type -CBT -Psycheducation -Supportive therapy, group therapy, individual therapy -Abilify 5mg PO HS -Celexa 20mg PO daily -Risperdal 1 mg PO daily -Risperdal 2 mg PO HS -Trazodone HCl 100 mg PO HS Estimated Date of D/C: 05/03/17 - Smoking Cessation Smoking Cessation Initiated: No
[2017-04-29] MEDS: Insulin Detemir 100 units/ml Vial (Levemir) SC SCH (22:22)
[2017-04-30 06:16] VITALS: O2SAT 99
[2017-04-30] MEDS: (Novolin R) Insulin Human Regular 100 units/ml vial SC SCH ×3 (08:28→16:38)
[2017-04-30] MEDS ORDERED: Influenza Vaccine 60 mcg/0.5 mL SYR (4YR UP) IM ONE (10:00)
[2017-04-30] MEDS: Pantoprazole 20 mg EC Tab PO SCH (10:00)
--- NOTE | 2017-04-30 15:59 | PCM.PYCHPN ---
Psychiatric Progress Note - Psychiatric Progress Note Patient seen today, length of contact: 15 min Patient Chief Complaint: "I'm feeling a little better, I'm still feeling voices but theyr'e not as intense." Problems Identified/Issues Discussed: Pt states he is feeling better. He attended group activities this morning and said he liked it. Pt is sleeping well- he woke up a few times but denies anxiety or voices at that time and easily fell asleep again. Pt states he hears the voices the most at night, but they are less intense in that he hears them less frequently. The voices are telling him to hurt himself. They do not tell him to hurt anyone else. Pt states he has no side effects from the medication at this time, but would like his protonix dose adjusted from 20 mg to 40 mg. He needs more time for stabilization. Medical Problems: CAD, HTN, DM without neuropathy. Medication Change: Yes (Increase Abilify) Medical Record Reviewed: Yes Mental Status Examination - Cognitive Function Orientation: Person, Place, Situation, Time Memory: Intact Attention: WNL Concentration: Poor Association: WNL Fund of Knowledge: Poor - Mood Mood: Depressed, Anxious - Affect Affect: Constricted - Speech Speech: Soft - Formal Thought Process Formal Thought Process: Hallucinations, Delusions, Paranoia - Suicidal Ideation Suicidal Ideation: No - Homicidal Ideation Homicidal Ideation: No Goal/Treatment Plan - Goal/Treatment Plan Need for Continued Stay: Severe depression anxiety, Severe functional impairment Progress Toward Problem(s) and Goals/Treatment Plan: Schizoaffective disorder depressed type -CBT -Psycheducation -Supportive therapy, group therapy, individual therapy -Increase Abilify to 15 mg PO HS with plan to put pt on Abilify Maintaina -Increase Celexa 40 mg PO daily -D/C Risperdal 1 mg PO daily -Risperdal 2 mg PO HS -Trazodone 100 mg PO HS Estimated Date of D/C: 05/03/17 - Smoking Cessation Smoking Cessation Initiated: No
[2017-04-30] MEDS: Insulin Detemir 100 units/ml Vial (Levemir) SC SCH (22:01)
[2017-05-01 06:50] VITALS: RESP 18
[2017-05-01] MEDS: (Novolin R) Insulin Human Regular 100 units/ml vial SC SCH ×3 (08:00→16:05)
[2017-05-01] MEDS: Pantoprazole 20 mg EC Tab PO SCH (10:15)
--- NOTE | 2017-05-01 16:41 | PCM.PYCHPN ---
Psychiatric Progress Note - Psychiatric Progress Note Patient seen today, length of contact: 15 min Patient Chief Complaint: "I'm still hearing voices." Problems Identified/Issues Discussed: Pt states he is still depressed and experiencing auditory command hallucinations telling him to kill himself. Medical Problems: CAD, HTN, DM without neuropathy. Medication Change: Yes (stop risperdal, increase abilify) Medical Record Reviewed: Yes Mental Status Examination - Cognitive Function Orientation: Person, Place, Situation, Time Memory: Intact Attention: WNL Concentration: Poor Association: Loose Fund of Knowledge: Poor - Mood Mood: Depressed, Anxious - Affect Affect: Constricted, Depressed - Speech Speech: Soft - Formal Thought Process Formal Thought Process: Hallucinations, Delusions, Paranoia, Loosening of associations - Suicidal Ideation Suicidal Ideation: No - Homicidal Ideation Homicidal Ideation: No Goal/Treatment Plan - Goal/Treatment Plan Need for Continued Stay: Severe depression anxiety, Severe functional impairment Progress Toward Problem(s) and Goals/Treatment Plan: Schizoaffective disorder depressed type -CBT -Psycheducation -Supportive therapy, group therapy, individual therapy -Increase Abilify to 30 mg PO HS with plan to put pt on Abilify Maintaina -Celexa 40 mg PO daily -D/C Risperdal 2 mg PO HS -Trazodone 100 mg PO HS Estimated Date of D/C: 05/03/17
[2017-05-01] MEDS: Insulin Detemir 100 units/ml Vial (Levemir) SC SCH (21:25)
[2017-05-02 06:46] VITALS: BP 94/67; PULSE 85; TEMP 98.1
[2017-05-02] MEDS: (Novolin R) Insulin Human Regular 100 units/ml vial SC SCH ×2 (08:15→11:40)
--- NOTE | 2017-05-02 10:04 | PCM.PYCHDC ---
Mental Status Examination - Mental Status Examination Orientation: Person, Place, Situation, Time Memory: Intact Mood: Neutral Affect: Constricted Speech: Soft Attention: WNL Concentration: WNL Association: WNL Fund of Knowledge: WNL Formal Thought Process: No Impairment Description of patient's judgement and insight: good, fair Psychotic Thoughts and Behaviors: denies any AVH Suicidal Ideation: No Current Homicidal Ideation?: No Discharge Summary - Discharge Note Laboratory Data: Abnormal Lab Results 05/01/17 05/01/17 05/01/17 11:23 16:10 20:04 POC Glucose (mg/dL) 309 H 261 H 308 H 05/02/17 08:03 POC Glucose (mg/dL) 234 H Consultations:: List each consultation separately and include: 1. Reason for request. 2. Findings. 3. Follow-up Summary of Hospital Course include:: 1. Description of specific treatment plan utilized for patients during their course of treatmen. 2. Summarize the time- course for resolution of acute symptoms and/or regressed behaviors. 3. Describe issues identified and worked on during hospitalization. 4. Describe medication utilized. 5. Describe medical problems identified and treated. 6. Reassessment of suicide risk - Diagnosis (1) Schizoaffective disorder Current Visit: Yes Status: Chronic Comment: stable. denies suicial or homicidal ideation. not on meds here. pt under care of Dr. Montes last visit (psych) - Final Diagnosis (DSM 5) Condition upon Discharge: STABLE Disposition: HOME/ ROUTINE Follow-up Treatment Plan: Schizoaffective disorder depressed type -CBT -Psycheducation -Supportive therapy, group therapy, individual therapy -Increase Abilify to 30 mg PO HS with plan to put pt on Abilify Maintaina -Celexa 40 mg PO daily -D/C Risperdal 2 mg PO HS -Trazodone 100 mg PO HS Prescriptions/Medication Reconciliation: amLODIPine [Norvasc] 5 mg PO DAILY #30 tab ARIPiprazole [Abilify] 30 mg PO HS #30 tab Aripiprazole [Abilify Maintena] 400 mg IM ONCE #1 suser.vial Aspirin [Aspirin Chewable] 81 mg PO DAILY #30 chew Citalopram [celEXA] 40 mg PO DAILY #30 tab Lisinopril [Zestril] 10 mg PO DAILY #30 tab traZODone [Desyrel] 100 mg PO HS #30 tab
[2017-05-02] MEDS: Pantoprazole 20 mg EC Tab PO SCH (10:39)
== END 2017-05-02 14:32 | disposition home or self-care (01) | DRG 430 ==
LOC: C.ER 22:04 → C.5E 04-27 01:03
PROVIDERS: ADMIT Psychiatry & Neurology Psychiatry; ATTEND Psychiatry & Neurology Psychiatry
PROC: GZ56ZZZ Individual Psychotherapy, Supportive (ICD-10-PCS; principal; 2017-04-27)
DX: F25.1 Schizoaffective disorder, depressive type (principal); E11.9 Type 2 diabetes mellitus without complications; F14.10 Cocaine abuse, uncomplicated; E78.5 Hyperlipidemia, unspecified; I25.10 Atherosclerotic heart disease of native coronary artery without angina pectoris; J45.909 Unspecified asthma, uncomplicated; Z87.891 Personal history of nicotine dependence; Z95.5 Presence of coronary angioplasty implant and graft; Z68.38 Body mass index [BMI] 38.0-38.9, adult; I10 Essential (primary) hypertension

== ENCOUNTER 2017-08-17 23:07 | Inpatient (IN) | payer MEDICAID, OTHER ==
[2017-08-17 23:08] VITALS: BMI 38.5
--- NOTE | 2017-08-18 00:22 | C.PDOC ---
History Of Present Illness <Osiel Wills E - Last Filed: 08/18/17 00:24> <Eusebio Montes - Last Filed: 08/18/17 02:23> 46 y/o male with a PMHx of schizophrenia presents to the ED complaining of suicidal ideation and auditory hallucinations. He reports a history of similar symptoms in the past. Denies any homicidal ideation. Patient offers no physical complaints at this time. (Osiel Wills) History Per: Patient History/Exam Limitations: no limitations Onset/Duration Of Symptoms: Days (x3) Current Symptoms Are (Timing): Still Present Suicide/Self Injury Attempted (Context): None Associated Symptoms: Suicidal Thoughts <Osiel Wills - Last Filed: 08/18/17 00:24> <Eusebio Montes - Last Filed: 08/18/17 02:23> Time Seen by Provider: 08/17/17 23:55 Chief Complaint (Nursing): Psychiatric Evaluation Past Medical History Reviewed: Historical Data, Nursing Documentation, Vital Signs - Medical History PMH: Anxiety, Arthritis, Asthma, Bipolar Disorder, Cardia Arrhythmia, CHF, Depression, Diabetes, Gastritis, HTN, Hypercholesterolemia, Hyperlipidemia, Schizophrenia Denies: Hepatitis, HIV, Seizures, Sexually Transmitted Disease Surgical History: Coronary Stent (2), Pacemaker (since 2010) Family History: States: CAD - Social History Hx Tobacco Use: Yes Hx Alcohol Use: No (occasional) Hx Substance Use: No - Immunization History Hx Tetanus Toxoid Vaccination: No Hx Influenza Vaccination: Yes Hx Pneumococcal Vaccination: Yes <JohannOsiel Moore - Last Filed: 08/18/17 00:24> Vital Signs: Last Vital Signs Temp 97.9 F 08/17/17 23:32 Pulse 97 H 08/17/17 23:32 Resp 16 08/17/17 23:32 BP 136/74 08/17/17 23:32 Pulse Ox 99 08/18/17 00:25 - [facility] Procedures FLUOROSCOPY OF LEFT HEART USING LOW OSMOLAR CONTRAST (01/23/17) FLUOROSCOPY OF MULT COR ART USING L OSM CONTRAST (01/23/17) GROUP PSYCHOTHERAPY (07/25/17) INDIV PSYCHOTHERAPY FOR SUBSTANCE ABUSE, COGNITIV BEHAVIORAL (07/25/17) INDIVID PSYCHOTHERAP NEC (10/05/14) INDIVIDUAL PSYCHOTHERAPY, BEHAVIORAL (02/04/16) INDIVIDUAL PSYCHOTHERAPY, COGNITIVE-BEHAVIORAL (07/25/17) INDIVIDUAL PSYCHOTHERAPY, SUPPORTIVE (04/27/17) MEASURE OF CARDIAC SAMPL & PRESSURE, L HEART, PERC APPROACH (01/23/17) MEASUREMENT OF CARDIAC PACEMAKER, EXTERNAL APPROACH (01/23/17) MEDICATION MANAGEMENT (12/23/16) OTHER GROUP THERAPY (10/05/14) PSYCHIAT DRUG THERAP NEC (11/30/14) Review Of Systems Except As Marked, All Systems Reviewed And Found Negative. Constitutional: Negative for: Fever Cardiovascular: Negative for: Chest Pain Respiratory: Negative for: Shortness of Breath Gastrointestinal: Negative for: Vomiting Psych: Positive for: Suicidal ideation, Other (Auditory hallucinations) <Osiel Wills E - Last Filed: 08/18/17 00:24> Physical Exam - Physical Exam Appears: Non-toxic, No Acute Distress, Other (Large black male) Skin: Normal Color, Warm, Dry Head: Atraumatic, Normacephalic Eye(s): bilateral: Normal Inspection, PERRL, EOMI Nose: Normal Oral Mucosa: Moist Neck: Normal ROM, Supple Cardiovascular: Rhythm Regular, No Murmur Respiratory: Normal Breath Sounds, No Rales, No Rhonchi, No Wheezing Gastrointestinal/Abdominal: Soft, No Tenderness, No Distention Extremity: Bilateral: Atraumatic, Normal Color And Temperature, Normal ROM Pulses: Left Dorsalis Pedis: Decreased, Right Dorsalis Pedis: Decreased Neurological/Psych: Oriented x3, Normal Speech, Other (Calm, cooperative) Gait: Steady <Osiel Wills E - Last Filed: 08/18/17 00:24> ED Course And Treatment O2 Sat by Pulse Oximetry: 99 (RA) Pulse Ox Interpretation: Normal Reevaluation Time: 00:45 (pending labs and eval by Crisis) <Osiel Wills - Last Filed: 08/18/17 00:24> - Laboratory Results Result Diagrams: 08/18/17 00:20 08/18/17 00:20 <Eusebio Montes - Last Filed: 08/18/17 02:23> Medical Decision Making <Osiel Wills - Last Filed: 08/18/17 00:24> <Eusebio Montes - Last Filed: 08/18/17 02:23> Medical Decision Making: Time: 23:57 Initial Plan: * CMP * Alcohol serum * Urine drug screen * CBC w/ differential * UA * Pending crisis evaluation * Placed on 1:1 observation 1:[address] Montes at this time. Pending remaining labs and crisis evaluation. (Osiel Wills) Disposition - Disposition Disposition Time: 01:00 <Osiel Wills - Last Filed: 08/18/17 00:24> Discussed With DrAgnes: Nolan Anthony Doctor Will See Patient In The: Hospital Counseled Patient/Family Regarding: Diagnosis - Disposition Disposition Time: 02:23 <Eusebio Montes - Last Filed: 08/18/17 02:23> - Disposition Disposition: HOSPITALIZED Condition: STABLE Forms: [email or web address] (Paraguayan) - Clinical Impression Clinical Impression: Schizo affective schizophrenia, Suicidal ideation, Diabetes mellitus - Scribe Statement The provider has reviewed the documentation as recorded by the Scribe (Lyn Jones) <Osiel Wills - Last Filed: 08/18/17 00:24> <Eusebio Montes - Last Filed: 08/18/17 02:23> - Scribe Statement Provider Attestation: All medical record entries made by the Scribe were at my direction and personally dictated by me. I have reviewed the chart and agree that the record accurately reflects my personal performance of the history, physical exam, medical decision making, and the department course for this patient. I have also personally directed, reviewed, and agree with the discharge instructions and disposition. (Osiel Wills) Physician Patient Turnover Patient Signed Over To: Eusebio Montes Handoff Comments: pending crisis eval and remaining labs <Osiel Wills - Last Filed: 08/18/17 00:24>
[2017-08-18 00:40] LABS: BASO # 0.1 K/uL (0.0-0.2); BASO % 0.8 % (0.0-2.0); EOS # 0.2 K/uL (0.0-0.7); EOS % 2.6 % (0.0-4.0); HEMOGLOBIN 11.3 g/dL (12.0-18.0); LYMPH # 1.6 K/uL (1.0-4.3); LYMPH % 19.8 % (20.0-40.0); MEAN CELL VOLUME 78.8 fL (80.0-94.0); MEAN CORPUSCULAR HEMOGLOBIN 25.7 pg (27.0-31.0); MEAN CORPUSCULAR HGB CONC 32.6 g/dL (33.0-37.0); MONO # 0.7 K/uL (0.0-0.8); MONO % 8.2 % (0.0-10.0); NEUT # 5.6 K/uL (1.8-7.0); NEUT % 68.6 % (50.0-75.0); RBC 4.4 Mil/uL (4.40-5.90); RED CELL DISTRIBUTION WIDTH 17.7 % (11.5-14.5); WHITE BLOOD COUNT 8.2 K/uL (4.8-10.8)
[2017-08-18 00:43] LABS: SQUAMOUS EPITHIAL 3 /hpf (0-5); URINE BILIRUBIN NEGATIVE (NEGATIVE); URINE CLARITY Clear (Clear); URINE COLOR Yellow (YELLOW); URINE GLUCOSE (UA) 3+ mg/dL (Normal); URINE LEUKOCYTE ESTERASE NEG Leu/uL (Negative); URINE PROTEIN NEGATIVE (NEGATIVE); URINE UROBILINOGEN NORMAL mg/dL (0.2-1.0)
[2017-08-18 00:47] LABS: URINE BLOOD NEGATIVE (NEGATIVE)
[2017-08-18 00:58] LABS: ALB/GLOB RATIO 1.3 (1.0-2.1); ALBUMIN 4.9 g/dL (3.5-5.0); ALT/SGPT 20 U/L (21-72); AST/SGOT 34 U/L (17-59); BLOOD UREA NITROGEN 20 mg/dL (9-20); CALCIUM 9.8 mg/dl (8.6-10.4); GFR AFRICAN-AMERICAN > 60; GFR NON-AFRICAN AMERICAN 60
[2017-08-18 01:23] LABS: BARBITURATES, UR NEGATIVE (NEGATIVE); BENZODIAZEPINES, UR NEGATIVE (NEGATIVE); OPIATES, UR NEGATIVE (NEGATIVE); PHENCYCLIDINE, UR NEGATIVE (NEGATIVE)
[2017-08-18] MEDS ORDERED: (Novolin R) Insulin Human Regular 100 units/ml vial SC ONE (02:05)
[2017-08-18] MEDS ORDERED: (Novolin R) Insulin Human Regular 100 units/ml vial ONE (03:26)
--- NOTE | 2017-08-18 05:20 | PCM.BM ---
<Win Allen - Last Filed: 08/18/17 05:19> Treatment Plan Problems - Problems identified on initial assessmt Auditory Hallucination Date Initiated: 08/18/17 Time Initiated: 04:20 Assessment reference: NA Status: Active Depression Date Initiated: 08/18/17 Time Initiated: 04:20 Assessment reference: NA Status: Active Treatment assets and liabiliti Patient Assests: adapts well, cooperative, self-reliant, ADL independent, negotiates basic needs, cognitively intact Patient Liabilities: substance abuse (Cocaine), medical problems (Hypertenion, diabetes, stents) - Milieu Protocol Maintain good personal hygiene: daily Encourage regular showers, daily Remind patient to perform daily oral care, every shift Assist patient to perform ADL's Conduct patient checks and document Observation sheet: Q15 minutes Maintain personal safety: every shift Educate patient to report safety concerns to staff, every shift Monitor environment for contraband/sharps Medication safety: Monitor for expected outcome, potential side effects: every shift, Assess barriers to learning: every shift, Assess readiness for medication education: every shift <Nolan Anthony - Last Filed: 08/21/17 11:18> - Diagnosis (1) Schizo affective schizophrenia Status: Chronic Interventions: 08/21/17 11:18 * Assess/adjust medications daily and /or as needed * See patient on an individual basis 7x/week to assess status of hallucinations * Discuss risks, benefits, side effects and alternatives of medications * <Alena Carrasco - Last Filed: 08/21/17 12:57> Family Contact Family involvement: Patient does not wish Family/SO involvement Family contact: Patient declines to allow family contact at present - Goals for Treatment Patient goals for treatment: "I want to return to [facility]." Discharge/Continuing Care - Education Needs Education Needs: Patient Medication, Patient Diagnosis/Disease Process, Patient Coping Skills - Discharge Discharge Criteria: Free of Suicidal thoughts, Normal sleep pattern, Ability to care for self, Reduction of target symptoms Discharge to:: Home - Treatment Team Participation Discussed with Family/SO: No Was Patient/Family/SO present at Treatment Team Meeting: Yes
--- NOTE | 2017-08-18 12:46 | PCM.PSYCH ---
Initial Psychiatric Evaluation - Initial Psychiatric Evaluation Type of Admission: Voluntary Legal Status: Capacity History of Present Illness and Precipitating Events: Patient is a 46 y/o, AAM, single and unemployed with a long history of schizoaffective disorder came to the ED with depressed mood and auditory hallucinations. Executive Assistant is familiar with this patient. Patient has a long history of schizoaffective disorder. Patient has been admitted to [facility] multiple times. He was last discharged few months ago. Patient reports that he is hearing voices giving him commands to kill himself. Patient stated that the voices are telling him that he is no good. Patient stated that he have a history of depression, patient states that if he is discharged he will act on his commands. Patient reports that he is in compliance with his medications, presently receiving treatment at [facility] in [place]. Patient reported that he drink alcohol "very little". Patient reporting using Cocaine, as per patient he " smoked a cigarrette with cocaine". Past medical history DM, HTN, Hypercholestrolimia Past Psychiatric History - Past Psychiatric History Previous Treatment History: Inpatient Pertinent Medical Hx (Current Medical&Sleep Prob, Allergies): Allergies Allergy/AdvReac Type Severity Reaction Status Date / Time No Known Allergies Allergy Verified 08/17/17 23:42 ARIPiprazole [Abilify] 20 mg PO DAILY 30 Days #60 tab 08/02/17 traZODone [Desyrel] 100 mg PO HS 30 Days #30 tab 08/02/17 Citalopram [celeXA] 20 mg PO DAILY 08/17/17 Insulin Aspart, Recombinant [Novolog] 20 unit SC TID 08/17/17 Insulin Glargine, Recombina [Lantus] 45 unit SC HS 08/17/17 Lisinopril [Zestril] 10 mg PO DAILY 08/17/17 amLODIPine [Norvasc] 5 mg PO DAILY 08/17/17 Review of Systems - Review of Systems All systems: reviewed and no additional remarkable complaints except - Psychiatric Psychiatric: Anxiety, Auditory Hallucinations, Irritability, Suicidal Ideation Mental Status Examination - Personal Presentation Personal Presentation: Looks stated age - Affect Affect: Constricted, Depressed - Motor Activity Motor Activity: Psychomotor Retardation - Reliability in Providing Information Reliability in Providing Information: Poor, due to alteration in thoughts, Poor , due to altered mood - Speech Speech: Disorganized - Mood Mood: Depressed, Anxious - Formal Thought Process Formal Thought Process: Hallucinations, Delusions, Paranoia, Loosening of associations - Hallucinations/Delusions Hallucinations: Visual, Auditory Delusions: Persecution - Obsessions/Compulsions Obsessions: No Compulsions: No - Cognitive Functions Orientation: Person, Place, Situation, Time Sensorium: Alert Attention/Concentration: Attentive Abstract Thinking: Keller Estimate of Intelligence: Below average Judgement: Imparied, as evidence by: Poor judgement, Imparied, as evidence by: Lack of insight into illness - Risk Risk: Suicidal, Diminished functioning - Limitations Limitations: Living alone DSM 5 DX - DSM 5 DSM 5 Diagnosis: Schizoaffective disorder depressed type Cocaine use disorder moderate - Recommended/Plan of Treatment Treatment Recommendations and Plan of Treatment: Schizoaffective disorder depressed type -CBT -Psychoeducation -Supportive therapy, group therapy, individual therapy -Abilify 20 mg daily -Trazodone 100 mg by mouth daily at bedtime -Celexa 20 mg daily -Gabapentin 100 mg PO TID Cocaine use disorder moderate -Psychoeducation -Supportive therapy, individual therapy -Use [facility] for abstinence DM Continue prescribed medications Monitor signs and symptoms HTN Continue prescribed medications Monitor signs and symptoms Hypercholesterolemia Continue prescribed medications Monitor signs and symptoms
[2017-08-18] MEDS: (Novolog) Insulin Aspart, Recombinant 100 u/ml 10 ml vial SC SCH ×2 (13:51→17:08)
[2017-08-18] MEDS: (Lantus) Insulin Glargine, Recombinant SC SCH (21:39)
[2017-08-19] MEDS: (Novolog) Insulin Aspart, Recombinant 100 u/ml 10 ml vial SC SCH ×3 (08:43→17:13)
--- NOTE | 2017-08-19 10:10 | PCM.PYCHPN ---
Psychiatric Progress Note - Psychiatric Progress Note Patient seen today, length of contact: 15 min Patient Chief Complaint: I am hearing voices Problems Identified/Issues Discussed: Patient seen and evaluated, chart reviewed and discussed with the nurse. Patient remained disorganized and internally preoccupied. Patient remained isolated, confined and withdrawn. He still reports of hearing voices. Patient still appears paranoid and delusional. He reports depressed mood and poor sleep. He is taking medication and denies any side effects. Symptoms are improving but needs more time for stabilization. Supportive therapy and psychoeducation were given. Medication Change: Yes Medical Record Reviewed: Yes Mental Status Examination - Cognitive Function Orientation: Person, Place, Situation, Time Memory: Intact Attention: WNL Concentration: Poor Association: Loose Fund of Knowledge: WNL - Mood Mood: Depressed, Anxious - Affect Affect: Constricted, Depressed - Speech Speech: Soft - Formal Thought Process Formal Thought Process: Hallucinations, Delusions, Paranoia, Loosening of associations - Suicidal Ideation Suicidal Ideation: No - Homicidal Ideation Homicidal Ideation: No Goal/Treatment Plan - Goal/Treatment Plan Need for Continued Stay: Severe depression anxiety, Severe functional impairment Progress Toward Problem(s) and Goals/Treatment Plan: Schizoaffective disorder depressed type -CBT -Psychoeducation -Supportive therapy, group therapy, individual therapy -Abilify 20 mg daily -Trazodone 100 mg by mouth daily at bedtime -Celexa 20 mg daily -Gabapentin 100 mg PO TID Cocaine use disorder moderate -Psychoeducation -Supportive therapy, individual therapy -Use [place] for abstinence DM Continue prescribed medications Monitor signs and symptoms HTN Continue prescribed medications Monitor signs and symptoms Hypercholesterolemia Continue prescribed medications Monitor signs and symptoms - Smoking Cessation Smoking Cessation Initiated: No
[2017-08-19] MEDS: (Lantus) Insulin Glargine, Recombinant SC SCH (22:18)
[2017-08-20] MEDS: (Novolog) Insulin Aspart, Recombinant 100 u/ml 10 ml vial SC SCH ×3 (07:50→16:51)
[2017-08-20 09:17] VITALS: O2SAT 98
[2017-08-20] MEDS: (Lantus) Insulin Glargine, Recombinant SC SCH (21:28)
[2017-08-21] MEDS: (Novolog) Insulin Aspart, Recombinant 100 u/ml 10 ml vial SC SCH ×3 (08:01→17:08)
--- NOTE | 2017-08-21 12:52 | PCM.PYCHPN ---
Psychiatric Progress Note - Psychiatric Progress Note Patient seen today, length of contact: 15 min Patient Chief Complaint: I am hearing voices Problems Identified/Issues Discussed: Patient seen and evaluated, chart reviewed and discussed with the nurse. Patient remained disorganized and internally preoccupied. Patient remained isolated, confined and withdrawn. He still reports of hearing voices. Patient still appears paranoid and delusional. He reports depressed mood and poor sleep. He is taking medication and denies any side effects. Symptoms are improving but needs more time for stabilization. Supportive therapy and psychoeducation were given. Medication Change: Yes Medical Record Reviewed: Yes Mental Status Examination - Cognitive Function Orientation: Person, Place, Situation, Time Memory: Intact Attention: WNL Concentration: Poor Association: Loose Fund of Knowledge: WNL - Mood Mood: Depressed, Anxious - Affect Affect: Constricted, Depressed - Speech Speech: Soft - Formal Thought Process Formal Thought Process: Hallucinations, Delusions, Paranoia, Loosening of associations - Suicidal Ideation Suicidal Ideation: No - Homicidal Ideation Homicidal Ideation: No Goal/Treatment Plan - Goal/Treatment Plan Need for Continued Stay: Severe depression anxiety, Severe functional impairment Progress Toward Problem(s) and Goals/Treatment Plan: Schizoaffective disorder depressed type -CBT -Psychoeducation -Supportive therapy, group therapy, individual therapy -Abilify 20 mg daily -Trazodone 100 mg by mouth daily at bedtime -Celexa 20 mg daily -Gabapentin 100 mg PO TID Cocaine use disorder moderate -Psychoeducation -Supportive therapy, individual therapy -Use [place] for abstinence DM Continue prescribed medications Monitor signs and symptoms HTN Continue prescribed medications Monitor signs and symptoms Hypercholesterolemia Continue prescribed medications Monitor signs and symptoms
--- NOTE | 2017-08-21 12:52 | PCM.PYCHPN ---
Psychiatric Progress Note - Psychiatric Progress Note Patient seen today, length of contact: 15 min Patient Chief Complaint: I am felling little better Problems Identified/Issues Discussed: Patient seen and evaluated, chart reviewed and discussed with the nurse. Staff reports that patient appears more organized and less internally preoccupied However he remained isolated, confined and withdrawn. He reports some improvement in the voices. He reports some improvement in the depressed mood. He is taking medication and denies any side effects. Symptoms are improving but needs more time for stabilization. Supportive therapy and psychoeducation were given. Medication Change: Yes Medical Record Reviewed: Yes Mental Status Examination - Cognitive Function Orientation: Person, Place, Situation, Time Memory: Intact Attention: WNL Concentration: Poor Association: Loose Fund of Knowledge: WNL - Mood Mood: Depressed, Anxious - Affect Affect: Constricted, Depressed - Speech Speech: Soft - Formal Thought Process Formal Thought Process: Delusions, Paranoia - Suicidal Ideation Suicidal Ideation: No - Homicidal Ideation Homicidal Ideation: No Goal/Treatment Plan - Goal/Treatment Plan Need for Continued Stay: Severe depression anxiety, Severe functional impairment Progress Toward Problem(s) and Goals/Treatment Plan: Schizoaffective disorder depressed type -CBT -Psychoeducation -Supportive therapy, group therapy, individual therapy -Abilify 20 mg daily -Trazodone 100 mg by mouth daily at bedtime -Celexa 20 mg daily -Gabapentin 300 mg PO TID Cocaine use disorder moderate -Psychoeducation -Supportive therapy, individual therapy -Use [place] for abstinence DM Continue prescribed medications Monitor signs and symptoms HTN Continue prescribed medications Monitor signs and symptoms Hypercholesterolemia Continue prescribed medications Monitor signs and symptoms - Smoking Cessation Smoking Cessation Initiated: No
[2017-08-21] MEDS: (Lantus) Insulin Glargine, Recombinant SC SCH (21:41)
[2017-08-22] MEDS: (Novolog) Insulin Aspart, Recombinant 100 u/ml 10 ml vial SC SCH ×3 (08:15→17:02)
--- NOTE | 2017-08-22 14:07 | PCM.PYCHPN ---
Psychiatric Progress Note - Psychiatric Progress Note Patient seen today, length of contact: 15 min Patient Chief Complaint: I am felling little better Problems Identified/Issues Discussed: Patient seen and evaluated, chart reviewed and discussed with the nurse. Staff reports that patient appears more organized and less internally preoccupied However he remained isolated, confined and withdrawn. He reports some improvement in the voices. He reports some improvement in the depressed mood. He is taking medication and denies any side effects. Symptoms are improving but needs more time for stabilization. Supportive therapy and psychoeducation were given. Medication Change: Yes Medical Record Reviewed: Yes Mental Status Examination - Cognitive Function Orientation: Person, Place, Situation, Time Memory: Intact Attention: WNL Concentration: Poor Association: Loose Fund of Knowledge: WNL - Mood Mood: Depressed, Anxious - Affect Affect: Constricted, Depressed - Speech Speech: Soft - Formal Thought Process Formal Thought Process: Delusions, Paranoia - Suicidal Ideation Suicidal Ideation: No - Homicidal Ideation Homicidal Ideation: No Goal/Treatment Plan - Goal/Treatment Plan Need for Continued Stay: Severe depression anxiety, Severe functional impairment Progress Toward Problem(s) and Goals/Treatment Plan: Schizoaffective disorder depressed type -CBT -Psychoeducation -Supportive therapy, group therapy, individual therapy -Abilify 20 mg daily -Trazodone 100 mg by mouth daily at bedtime -Celexa 20 mg daily -Gabapentin 300 mg PO TID Cocaine use disorder moderate -Psychoeducation -Supportive therapy, individual therapy -Use [place] for abstinence DM Continue prescribed medications Monitor signs and symptoms HTN Continue prescribed medications Monitor signs and symptoms Hypercholesterolemia Continue prescribed medications Monitor signs and symptoms
[2017-08-22] MEDS: (Lantus) Insulin Glargine, Recombinant SC SCH (21:29)
[2017-08-23 06:30] VITALS: PULSE 86; RESP 20; TEMP 97.4
[2017-08-23] MEDS: (Novolog) Insulin Aspart, Recombinant 100 u/ml 10 ml vial SC SCH (08:25)
--- NOTE | 2017-08-23 09:45 | PCM.PYCHDC ---
Mental Status Examination - Mental Status Examination Orientation: Person, Place, Situation, Time Memory: Intact Mood: Neutral Affect: Constricted Speech: Soft Attention: WNL Concentration: WNL Association: WNL Fund of Knowledge: WNL Formal Thought Process: No Impairment Description of patient's judgement and insight: good, fair Psychotic Thoughts and Behaviors: denies any AVH Suicidal Ideation: No Current Homicidal Ideation?: No Discharge Summary - Discharge Note Reason for Hospitalization: Patient is a 46 y/o, AAM, single and unemployed with a long history of schizoaffective disorder came to the ED with depressed mood and auditory hallucinations. Pipe Fitter Apprentice is familiar with this patient. Patient has a long history of schizoaffective disorder. Patient has been admitted to [facility] multiple times. He was last discharged few months ago. Patient reports that he is hearing voices giving him commands to kill himself. Patient stated that the voices are telling him that he is no good. Patient stated that he have a history of depression, patient states that if he is discharged he will act on his commands. Patient reports that he is in compliance with his medications, presently receiving treatment at [facility] in [place]. Patient reported that he drink alcohol "very little". Patient reporting using Cocaine, as per patient he " smoked a cigarette with cocaine". Laboratory Data: Abnormal Lab Results 08/22/17 08/22/17 08/22/17 11:24 16:49 20:51 POC Glucose (mg/dL) 234 H 123 H 240 H 08/23/17 07:30 POC Glucose (mg/dL) 182 H Consultations:: List each consultation separately and include: 1. Reason for request. 2. Findings. 3. Follow-up Summary of Hospital Course include:: 1. Description of specific treatment plan utilized for patients during their course of treatmen. 2. Summarize the time- course for resolution of acute symptoms and/or regressed behaviors. 3. Describe issues identified and worked on during hospitalization. 4. Describe medication utilized. 5. Describe medical problems identified and treated. 6. Reassessment of suicide risk Summary of Hospital Course: Patient is a 46 y/o, AAM, single and unemployed with a long history of schizoaffective disorder came to the ED with depressed mood and auditory hallucinations. Pipe Fitter Apprentice is familiar with this patient. Patient has a long history of schizoaffective disorder. Patient has been admitted to [facility] multiple times. He was last discharged few months ago. Patient reports that he is hearing voices giving him commands to kill himself. Patient stated that the voices are telling him that he is no good. Patient stated that he have a history of depression, patient states that if he is discharged he will act on his commands. Patient reports that he is in compliance with his medications, presently receiving treatment at [facility] in [place]. Patient reported that he drink alcohol "very little". Patient reporting using Cocaine, as per patient he " smoked a cigarrette with cocaine". Past medical history DM, HTN, Hypercholestrolimia - Diagnosis (1) Schizo affective schizophrenia Current Visit: Yes Status: Chronic Comment: Being managed by psychiatry. decrease Ability to 15 mg Q daily Add cogentin 2 mg BID celexa 20 mg Trazodone 100 mg QHS supportive psychotherapy - Final Diagnosis (DSM 5) Condition upon Discharge: STABLE DSM 5: Schizoaffective disorder depressed type Cocaine use disorder moderate Disposition: HOME/ ROUTINE Follow-up Treatment Plan: Schizoaffective disorder depressed type -CBT -Psychoeducation -Supportive therapy, group therapy, individual therapy -Abilify 20 mg daily -Trazodone 100 mg by mouth daily at bedtime -Celexa 20 mg daily -Gabapentin 300 mg PO TID Cocaine use disorder moderate -Psychoeducation -Supportive therapy, individual therapy -Use [place] for abstinence DM Continue prescribed medications Monitor signs and symptoms HTN Continue prescribed medications Monitor signs and symptoms Hypercholesterolemia Continue prescribed medications Monitor signs and symptoms Prescriptions/Medication Reconciliation: ARIPiprazole [Abilify] 20 mg PO DAILY 30 Days #60 tab Citalopram [celEXA] 20 mg PO DAILY #30 tab Gabapentin [Neurontin] 300 mg PO BID #60 cap traZODone [Desyrel] 100 mg PO HS 30 Days #30 tab
[2017-08-23 10:35] VITALS: BP 128/76
== END 2017-08-23 10:34 | disposition home or self-care (01) | DRG 430 ==
LOC: C.ER 23:07 → C.5E 08-18 02:24
PROVIDERS: ADMIT Psychiatry & Neurology Psychiatry; ATTEND Psychiatry & Neurology Psychiatry
PROC: GZHZZZZ Group Psychotherapy (ICD-10-PCS; principal; 2017-08-18)
DX: F25.1 Schizoaffective disorder, depressive type (principal); I11.0 Hypertensive heart disease with heart failure; I50.9 Heart failure, unspecified; F14.10 Cocaine abuse, uncomplicated; E78.5 Hyperlipidemia, unspecified; F31.9 Bipolar disorder, unspecified; I25.10 Atherosclerotic heart disease of native coronary artery without angina pectoris; E11.9 Type 2 diabetes mellitus without complications; J45.909 Unspecified asthma, uncomplicated; Z87.891 Personal history of nicotine dependence; Z95.0 Presence of cardiac pacemaker; Z95.5 Presence of coronary angioplasty implant and graft

== ENCOUNTER 2017-12-24 15:15 | Inpatient (IN) | payer MEDICAID, OTHER ==
[2017-12-24 15:16] VITALS: BMI 37.0
--- NOTE | 2017-12-24 15:40 | C.PDOC ---
History Of Present Illness 47 year old male, whose past medical history includes CAD s/p 2 stents, hypertension, DM2, schizophrenia, anxiety, bipolar disorder, substance abuse history, and pacemaker, presents to the emergency department complaining of auditory hallucinations. Patient states he is hearing voices telling him to kill himself. Patient states he has a plan to kill himself by taking pills and he is feeling depressed. Patient denies any fever, chills, chest pain, shortness of breath, nausea, vomiting, diarrhea, urinary symptoms, back pain, neck pain, headache, dizziness, homicidal ideation, visual hallucinations, or any other complaints. <Joya Estrella - Last Filed: 12/24/17 18:38> History Per: Patient <Joya Estrella - Last Filed: 12/24/17 18:38> <Skye Murcia - Last Filed: 12/24/17 18:59> Time Seen by Provider: 12/24/17 15:35 Chief Complaint (Nursing): Psychiatric Evaluation Past Medical History Reviewed: Historical Data, Nursing Documentation, Vital Signs Vital Signs: Last Vital Signs Temp 98.2 F 12/24/17 15:24 Pulse 90 12/24/17 15:24 Resp 20 12/24/17 15:24 BP 133/85 12/24/17 15:24 Pulse Ox 98 12/24/17 15:24 - Medical History PMH: Anemia, Anxiety, Arthritis, Asthma, Bipolar Disorder, Cardia Arrhythmia, CHF, Depression, Diabetes, Gastritis, HTN, Hypercholesterolemia, Hyperlipidemia, Schizophrenia Denies: Hepatitis, HIV, Chronic Kidney Disease, Seizures, Sexually Transmitted Disease Surgical History: Coronary Stent (2), Pacemaker (since 2010) - [facility] Procedures ASSISTANCE WITH RESPIRATORY VENTILATION, <24 HRS, CPAP (10/02/17) FLUOROSCOPY OF LEFT HEART USING LOW OSMOLAR CONTRAST (01/23/17) FLUOROSCOPY OF MULT COR ART USING L OSM CONTRAST (01/23/17) GROUP PSYCHOTHERAPY (08/18/17) INDIV PSYCHOTHERAPY FOR SUBSTANCE ABUSE, COGNITIV BEHAVIORAL (07/25/17) INDIVID PSYCHOTHERAP NEC (10/05/14) INDIVIDUAL PSYCHOTHERAPY, BEHAVIORAL (02/04/16) INDIVIDUAL PSYCHOTHERAPY, COGNITIVE-BEHAVIORAL (07/25/17) INDIVIDUAL PSYCHOTHERAPY, SUPPORTIVE (04/27/17) INTRODUCE OF OTH THERAP SUBST INTO RESP TRACT, VIA OPENING (10/02/17) MEASURE OF CARDIAC SAMPL & PRESSURE, L HEART, PERC APPROACH (01/23/17) MEASUREMENT OF CARDIAC PACEMAKER, EXTERNAL APPROACH (01/23/17) MEDICATION MANAGEMENT (12/23/16) OTHER GROUP THERAPY (10/05/14) PSYCHIAT DRUG THERAP NEC (11/30/14) Family History: States: CAD - Social History Hx Tobacco Use: Yes Hx Alcohol Use: No Hx Substance Use: No - Immunization History Hx Tetanus Toxoid Vaccination: Yes Hx Influenza Vaccination: No Hx Pneumococcal Vaccination: No <Joya Estrella - Last Filed: 12/24/17 18:38> Vital Signs: Last Vital Signs Temp 99 F 12/24/17 17:53 Pulse 82 12/24/17 17:53 Resp 16 12/24/17 17:53 BP 115/70 12/24/17 17:53 Pulse Ox 98 12/24/17 18:39 - [facility] Procedures ASSISTANCE WITH RESPIRATORY VENTILATION, <24 HRS, CPAP (10/02/17) FLUOROSCOPY OF LEFT HEART USING LOW OSMOLAR CONTRAST (01/23/17) FLUOROSCOPY OF MULT COR ART USING L OSM CONTRAST (01/23/17) GROUP PSYCHOTHERAPY (08/18/17) INDIV PSYCHOTHERAPY FOR SUBSTANCE ABUSE, COGNITIV BEHAVIORAL (07/25/17) INDIVID PSYCHOTHERAP NEC (10/05/14) INDIVIDUAL PSYCHOTHERAPY, BEHAVIORAL (02/04/16) INDIVIDUAL PSYCHOTHERAPY, COGNITIVE-BEHAVIORAL (07/25/17) INDIVIDUAL PSYCHOTHERAPY, SUPPORTIVE (04/27/17) INTRODUCE OF OTH THERAP SUBST INTO RESP TRACT, VIA OPENING (10/02/17) MEASURE OF CARDIAC SAMPL & PRESSURE, L HEART, PERC APPROACH (01/23/17) MEASUREMENT OF CARDIAC PACEMAKER, EXTERNAL APPROACH (01/23/17) MEDICATION MANAGEMENT (12/23/16) OTHER GROUP THERAPY (10/05/14) PSYCHIAT DRUG THERAP NEC (11/30/14) <Skye Murcia - Last Filed: 12/24/17 18:59> Review Of Systems Except As Marked, All Systems Reviewed And Found Negative. Constitutional: Negative for: Fever, Chills ENT: Negative for: Ear Discharge, Throat Pain, Throat Swelling Cardiovascular: Negative for: Chest Pain, Palpitations, Edema Respiratory: Negative for: Cough, Shortness of Breath, Wheezing Gastrointestinal: Negative for: Nausea, Vomiting, Abdominal Pain Genitourinary: Negative for: Dysuria, Frequency Musculoskeletal: Negative for: Neck Pain, Back Pain Skin: Negative for: Rash Neurological: Negative for: Weakness, Numbness, Altered Mental Status, Headache, Dizziness Psych: Positive for: Psychosis, Suicidal ideation <Joya Estrella - Last Filed: 12/24/17 18:38> Physical Exam - Physical Exam Appears: Well, Non-toxic, No Acute Distress Skin: Normal Color, Warm, Dry, No Rash Head: Atraumatic, Normacephalic Eye(s): bilateral: PERRL, EOMI Nose: No Flaring, No Discharge Oral Mucosa: Moist, No Drooling Tongue: Normal Appearing Lips: Normal Appearing Throat: No Erythema, No Drooling Neck: Trachea Midline, Supple Cardiovascular: Rhythm Regular, No Murmur, No JVD Respiratory: No Decreased Breath Sounds, No Accessory Muscle Use, No Stridor, No Wheezing Gastrointestinal/Abdominal: Soft, No Tenderness Back: No CVA Tenderness Extremity: Normal ROM, No Deformity, No Swelling Neurological/Psych: Oriented x3, Normal Speech <Joya Estrella - Last Filed: 12/24/17 18:38> ED Course And Treatment - Laboratory Results Result Diagrams: 12/24/17 16:33 12/24/17 16:33 Lab Interpretation: No Changes Compared To Prior Results ECG: Interpreted By Me, Viewed By Me ECG Rhythm: Sinus Rhythm Interpretation Of ECG: SR@82/min, NAD, no acute T wave or ST-T changes O2 Sat by Pulse Oximetry: 98 Pulse Ox Interpretation: Normal - Radiology CXR: Interpreted by Me, Viewed By Me, Read By Radiologist CXR Interpretation: Yes: No Acute Disease Progress Note: At 17:00, blood work, UA, EKG, CXR review and appears baseline without acute findings. Pt is medically cleared for PES evaluation. <Joya Estrella - Last Filed: 12/24/17 18:38> - Laboratory Results Result Diagrams: 12/24/17 16:33 12/24/17 16:33 <Skye Murcia - Last Filed: 12/24/17 18:59> Disposition - Disposition Disposition Time: 18:38 <Joya Estrella - Last Filed: 10/02/18 18:38> <Skye Murcia - Last Filed: 12/24/17 18:59> - Disposition Condition: STABLE Forms: [facility] (Gambian) - Clinical Impression Clinical Impression: Schizophrenia, paranoid type Physician Patient Turnover Patient Signed Over To: Thom Kc DO Handoff Comments: rafy Jameson <Joya Estrella - Last Filed: 12/24/17 18:38> Addendum Addendum: 12/24/17 18:59 Patient admitted by [facility], not signed out to Dr. Kc. <Skye Murcia - Last Filed: 12/24/17 18:59>
--- NOTE | 2017-12-24 16:28 | RAD ---
Date of service: 12/24/2017 HISTORY: Detox/Psy COMPARISON: Portable chest 08/10/2015. TECHNIQUE: Chest PA and lateral FINDINGS: LUNGS: No active pulmonary disease. PLEURA: No significant pleural effusion identified. No pneumothorax apparent. CARDIOVASCULAR: Normal cardiac size. No pulmonary vascular congestion. Reiteration of bipolar permanent cardiac pacemaker identified. OSSEOUS STRUCTURES: No significant abnormalities. VISUALIZED UPPER ABDOMEN: Normal. OTHER FINDINGS: None. IMPRESSION: No interval acute cardiopulmonary disease appreciated. Pacemaker reiterated.
[2017-12-24 16:38] LABS: BASO % 0.5 % (0.0-2.0); EOS # 0.4 K/uL (0.0-0.7); EOS % 4.9 % (0.0-4.0); HEMOGLOBIN 10.2 g/dL (12.0-18.0); LYMPH # 1.6 K/uL (1.0-4.3); LYMPH % 21.9 % (20.0-40.0); MEAN CELL VOLUME 79.2 fL (80.0-94.0); MEAN CORPUSCULAR HEMOGLOBIN 26.4 pg (27.0-31.0); MEAN CORPUSCULAR HGB CONC 33.4 g/dL (33.0-37.0); MEAN PLATELET VOLUME 7.3 fL (7.2-11.7); MONO # 0.8 K/uL (0.0-0.8); MONO % 11.4 % (0.0-10.0); NEUT # 4.4 K/uL (1.8-7.0); NEUT % 61.3 % (50.0-75.0); NRBC % 0.1 % (0.0-2.0); RBC 3.85 Mil/uL (4.40-5.90); RED CELL DISTRIBUTION WIDTH 16.7 % (11.5-14.5); WHITE BLOOD COUNT 7.2 K/uL (4.8-10.8)
[2017-12-24 16:46] LABS: SQUAMOUS EPITHIAL 5 /hpf (0-5); URINE BACTERIA OCC (<OCC); URINE BILIRUBIN NEGATIVE (NEGATIVE); URINE BLOOD NEGATIVE (NEGATIVE); URINE CLARITY Hazy (Clear); URINE COLOR Yellow (YELLOW); URINE GLUCOSE (UA) 3+ mg/dL (Normal); URINE LEUKOCYTE ESTERASE NEG Leu/uL (Negative); URINE PROTEIN NEGATIVE (NEGATIVE)
[2017-12-24 16:51] LABS: ALB/GLOB RATIO 1.3 (1.0-2.1); ALT/SGPT 31 U/L (21-72); AST/SGOT 26 U/L (17-59); BLOOD UREA NITROGEN 12 mg/dL (9-20); CALCIUM 9.2 mg/dl (8.6-10.4); GFR NON-AFRICAN AMERICAN > 60
[2017-12-24 16:55] LABS: BARBITURATES, UR NEGATIVE (NEGATIVE); BENZODIAZEPINES, UR NEGATIVE (NEGATIVE); OPIATES, UR NEGATIVE (NEGATIVE); PHENCYCLIDINE, UR NEGATIVE (NEGATIVE)
--- NOTE | 2017-12-24 20:35 | PCM.BM ---
<AvaJosefina Karely - Last Filed: 12/24/17 20:32> Treatment Plan Problems - Problems identified on initial assessmt Schizophrenia Date Initiated: 12/24/17 Time Initiated: 20:32 Assessment reference: NA Status: Active Substance Abuse Date Initiated: 12/24/17 Time Initiated: 20:33 Assessment reference: NA Status: Active Treatment assets and liabiliti Patient Assests: adapts well, cooperative, self-reliant, ADL independent, negotiates basic needs, cognitively intact Patient Liabilities: poor support system, substance abuse, medical problems - Milieu Protocol Maintain good personal hygiene: daily Encourage regular showers, daily Remind patient to perform daily oral care, daily Assist patient to perform ADL's Conduct patient checks and document Observation sheet: Q15 minutes Maintain personal safety: every shift Educate patient to report safety concerns to staff, every shift Monitor environment for contraband/sharps Medication safety: Monitor for expected outcome, potential side effects: every shift, Assess barriers to learning: every shift, Assess readiness for medication education: every shift <Nolan Anthony - Last Filed: 12/25/17 11:31> - Diagnosis (1) Schizoaffective disorder Status: Chronic Interventions: 12/25/17 11:31 * Assess/adjust medications daily and /or as needed * See patient on an individual basis 7x/week to assess status of hallucinations * Discuss risks, benefits, side effects and alternatives of medications * <Alena Carrasco - Last Filed: 12/25/17 15:31> Family Contact Family involvement: Patient does not wish Family/SO involvement Family contact: Patient declines to allow family contact at present - Goals for Treatment Patient goals for treatment: "I want to go to an outpatient program." Discharge/Continuing Care - Education Needs Education Needs: Patient Medication, Patient Diagnosis/Disease Process, Patient Coping Skills, Patient Placement options, Patient Community resources - Discharge Discharge Criteria: Free of Suicidal thoughts, Normal sleep pattern, Ability to care for self, Reduction of target symptoms Discharge to:: Home - Treatment Team Participation Discussed with Family/SO: No Was Patient/Family/SO present at Treatment Team Meeting: Yes
[2017-12-24] MEDS: (Lantus) Insulin Glargine, Recombinant SC SCH (22:00)
[2017-12-24] MEDS ORDERED: Pneumococcal 23-Valent Vaccine IM ONE (22:00)
[2017-12-25] MEDS: (Novolog) Insulin Aspart, Recombinant 100 u/ml 10 ml vial SC SCH ×3 (08:22→16:29)
--- NOTE | 2017-12-25 09:44 | PCM.PSYCH ---
Initial Psychiatric Evaluation - Initial Psychiatric Evaluation Type of Admission: Voluntary Legal Status: Capacity Chief Complaint (in patient's own words): I was feeling depressed and suicidal'. History of Present Illness and Precipitating Events: Patient is a 47-year-old male, single with no children, who is unemployed and lives by himself in [place]. Patient is here because he hears a female voice telling him to kill himself. He has a long psychiatric hx of Schizoaffective disorder and he has been in psychiatric units many times for similar symptoms. The last time he was in a psych unit was 4 months ago at [facility]. Patient reports that he feels like people are following him and making him paranoid. He reports taking his medications regularly and the last time he took them was a couple of days ago. He denies any alcohol use but he admits that he uses cocaine. The last time he used cocaine was 3 days ago. He states that he used a dime of cocaine. He denies any other drug use. Patient reports feeling depressed and isolated lately. He denies any suicidal or homicidal ideas. He complains about having stomach pain and requests for Protonix. He denies any chest pain, headache, dizziness, or tremors. Patient reports that he usually spends time at home and does not go out often. Psych hx: Schizoaffective disorder Medical hx: DM, HTN, hypercholesterolemia Family hx: sister with depression, nephew with bipolar disorder Current Medications: Active Medications Generic Name Dose Route Start Last Admin Trade Name Freq PRN Reason Stop Dose Admin Influenza Virus Vaccine 60 mcg 12/27/17 10:00 Fluzone Quad [id number] IM 12/27/17 10:01 .ONCE ONE Insulin Aspart 20 unit 12/25/17 07:30 12/25/17 08:22 Novolog SC 20 unit ACTID FROYLAN Administration Insulin Glargine 45 unit 12/24/17 22:00 12/24/17 22:00 Lantus SC 45 units HS FROYLAN Administration Past Psychiatric History - Past Psychiatric History Previous Treatment History: Inpatient Pertinent Medical Hx (Current Medical&Sleep Prob, Allergies): Allergies Allergy/AdvReac Type Severity Reaction Status Date / Time No Known Allergies Allergy Verified 12/24/17 15:27 ARIPiprazole [Abilify] 10 mg PO DAILY #14 tab 10/16/17 LORazepam [Ativan] 0.5 mg PO TID PRN #42 tab 10/16/17 traZODone [Desyrel] 100 mg PO HS #14 tab 10/16/17 Aspirin [Ecotrin] 81 mg PO DAILY 12/24/17 Atorvastatin [Lipitor] 20 mg PO DAILY 12/24/17 Citalopram Hydrobromide [Celexa] 20 mg PO DAILY 12/24/17 Clopidogrel [Plavix] 1 tab PO DAILY 12/24/17 Insulin Aspart, Recombinant [Novolog] 20 unit SC AC 12/24/17 Insulin Glargine, Recombina [Lantus] 45 unit SC HS 12/24/17 Lisinopril [Zestril] 10 mg PO DAILY 12/24/17 Pantoprazole Sodium [Protonix] 40 mg PO DAILY 12/24/17 amLODIPine [Norvasc] 5 mg PO DAILY 12/24/17 Review of Systems - Review of Systems All systems: reviewed and no additional remarkable complaints except - Psychiatric Psychiatric: Anxiety, Auditory Hallucinations, Irritability, Suicidal Ideation Mental Status Examination - Personal Presentation Personal Presentation: Looks stated age - Affect Affect: Constricted, Depressed - Motor Activity Motor Activity: Calm - Reliability in Providing Information Reliability in Providing Information: Fair - Speech Speech: Organized - Mood Mood: Depressed, Anxious - Formal Thought Process Formal Thought Process: No Impairment - Hallucinations/Delusions Hallucinations: Auditory Delusions: Persecution - Obsessions/Compulsions Obsessions: No Compulsions: No - Cognitive Functions Orientation: Person, Place, Situation, Time Sensorium: Alert Attention/Concentration: Attentive Abstract Thinking: [place] Estimate of Intelligence: Below average Judgement: Imparied, as evidence by: Poor judgement, Imparied, as evidence by: Lack of insight into illness - Risk Risk: Suicidal, Diminished functioning - Limitations Limitations: Living alone DSM 5 DX - DSM 5 DSM 5 Diagnosis: Schizoaffective disorder depressive type Cocaine use disorder moderate - Recommended/Plan of Treatment Treatment Recommendations and Plan of Treatment: Schizoaffective disorder depressive type Cocaine use disorder moderate DM, HTN, Hypercholesterolemia -CBT -Psychotherapy -Supportive therapy, group therapy, individual therapy -Atarax 25 mg PO Q6 prn -Abilify 10 mg PO QHS -Neurontin 100 mg PO QTID -Trazodone 50 mg PO QHS prn -Zoloft 50 mg PO QDaily
--- NOTE | 2017-12-25 13:16 | CARD ---
APPROVED REPORT Date of service: 12/24/2017 EKG Measurement Heart [id number] <Conclusion> Normal sinus rhythm Normal ECG
[2017-12-25] MEDS: (Lantus) Insulin Glargine, Recombinant SC SCH (21:28)
[2017-12-26 06:59] VITALS: O2SAT 100
[2017-12-26] MEDS: (Novolog) Insulin Aspart, Recombinant 100 u/ml 10 ml vial SC SCH ×3 (08:27→16:33)
--- NOTE | 2017-12-26 10:49 | PCM.PYCHPN ---
Psychiatric Progress Note - Psychiatric Progress Note Patient seen today, length of contact: 15 min Patient Chief Complaint: I was feeling depressed and suicidal'. Problems Identified/Issues Discussed: Patient seen and evaluated, chart reviewed and discussed with the nurse. Pt reports depressed mood, and reports feelings of hopelessness and helplessness. Pt remained disorganized and internally preoccupied. He remained isolated and withdrawn, and confined to his room. Patient reports auditory hallucinations, and paranoia. Patient is compliant with medications and denies any side effects. Symptoms are improving but pt needs more time to stabilize. Support and psychoeducation given. Medication Change: Yes Medical Record Reviewed: Yes Mental Status Examination - Cognitive Function Orientation: Person, Place, Situation, Time Memory: Intact Attention: WNL Concentration: Poor Association: Loose Fund of Knowledge: Poor - Mood Mood: Depressed, Anxious - Affect Affect: Constricted, Depressed - Speech Speech: Soft - Formal Thought Process Formal Thought Process: Hallucinations, Delusions, Paranoia, Loosening of associations - Suicidal Ideation Suicidal Ideation: No - Homicidal Ideation Homicidal Ideation: No Goal/Treatment Plan - Goal/Treatment Plan Need for Continued Stay: Severe depression anxiety, Severe functional impairment Progress Toward Problem(s) and Goals/Treatment Plan: Schizoaffective disorder depressive type Cocaine use disorder moderate DM, HTN, Hypercholesterolemia -CBT -Psychotherapy -Supportive therapy, group therapy, individual therapy -Atarax 25 mg PO Q6 prn -Abilify 10 mg PO QHS -Neurontin 300 mg PO QTID -Trazodone 50 mg PO QHS prn -Zoloft 100 mg PO QDaily
[2017-12-26] MEDS: (Lantus) Insulin Glargine, Recombinant SC SCH (21:50)
[2017-12-27] MEDS: Pantoprazole 40 mg EC Tab PO SCH ×2 (02:49→09:09)
[2017-12-27] MEDS: (Novolog) Insulin Aspart, Recombinant 100 u/ml 10 ml vial SC SCH ×3 (08:26→16:31)
[2017-12-27] MEDS ORDERED: Influenza Vaccine 60 MCG/0.5 ML SYR (3 yr & up) IM ONE (10:00)
[2017-12-27] MEDS: (Lantus) Insulin Glargine, Recombinant SC SCH (21:09)
[2017-12-28] MEDS: (Novolog) Insulin Aspart, Recombinant 100 u/ml 10 ml vial SC SCH ×3 (08:17→16:40)
[2017-12-28] MEDS: Pantoprazole 40 mg EC Tab PO SCH (09:10)
--- NOTE | 2017-12-28 12:27 | PCM.PYCHPN ---
Psychiatric Progress Note - Psychiatric Progress Note Patient seen today, length of contact: 15 min Patient Chief Complaint: I m feeling depressed'. Problems Identified/Issues Discussed: Patient seen and evaluated, chart reviewed and discussed with the nurse. As per the staff, pt still reports depressed mood, and auditory hallucinations, and paranoia. Pt remained disorganized and internally preoccupied. He remained isolated and withdrawn, and confined to his room. Patient is compliant with medications and denies any side effects. Symptoms are improving but pt needs more time to stabilize. Support and psychoeducation given. Medication Change: Yes Medical Record Reviewed: Yes Mental Status Examination - Cognitive Function Orientation: Person, Place, Situation, Time Memory: Intact Attention: WNL Concentration: Poor Association: Loose Fund of Knowledge: Poor - Mood Mood: Depressed, Anxious - Affect Affect: Constricted, Depressed - Speech Speech: Soft - Formal Thought Process Formal Thought Process: Hallucinations, Delusions, Paranoia, Loosening of asso ciations - Suicidal Ideation Suicidal Ideation: No - Homicidal Ideation Homicidal Ideation: No Goal/Treatment Plan - Goal/Treatment Plan Need for Continued Stay: Severe depression anxiety, Severe functional impairment Progress Toward Problem(s) and Goals/Treatment Plan: Schizoaffective disorder depressive type Cocaine use disorder moderate DM, HTN, Hypercholesterolemia -CBT -Psychotherapy -Supportive therapy, group therapy, individual therapy -Atarax 25 mg PO Q6 prn -Abilify 10 mg PO QHS -Neurontin 300 mg PO QTID -Trazodone 50 mg PO QHS prn -Zoloft 100 mg PO QDaily
[2017-12-28] MEDS: (Lantus) Insulin Glargine, Recombinant SC SCH (21:19)
[2017-12-29] MEDS: (Novolog) Insulin Aspart, Recombinant 100 u/ml 10 ml vial SC SCH ×3 (08:01→17:17)
[2017-12-29] MEDS: Pantoprazole 40 mg EC Tab PO SCH (09:17)
[2017-12-29] MEDS: (Lantus) Insulin Glargine, Recombinant SC SCH (21:26)
--- NOTE | 2017-12-30 00:48 | PCM.PYCHPN ---
Psychiatric Progress Note - Psychiatric Progress Note Patient seen today, length of contact: 15 min Patient Chief Complaint: I m still feeling depressed'. Problems Identified/Issues Discussed: Patient seen and evaluated, chart reviewed and discussed with the nurse. Pt appears more organized but remained internally preoccupied. Pt still reports depressed mood, auditory hallucinations, and paranoia. He remained isolated and withdrawn, and confined to his room. Patient is compliant with medications and denies any side effects. Symptoms are improving but pt needs more time to stabilize. Support and psychoeducation given. Medication Change: Yes Medical Record Reviewed: Yes Mental Status Examination - Cognitive Function Orientation: Person, Place, Situation, Time Memory: Intact Attention: WNL Concentration: Poor Association: Loose Fund of Knowledge: Poor - Mood Mood: Depressed, Anxious - Affect Affect: Constricted, Depressed - Speech Speech: Soft - Formal Thought Process Formal Thought Process: Hallucinations, Delusions, Paranoia, Loosening of associations - Suicidal Ideation Suicidal Ideation: No - Homicidal Ideation Homicidal Ideation: No Goal/Treatment Plan - Goal/Treatment Plan Need for Continued Stay: Severe depression anxiety, Severe functional impairment Progress Toward Problem(s) and Goals/Treatment Plan: Schizoaffective disorder depressive type Cocaine use disorder moderate DM, HTN, Hypercholesterolemia -CBT -Psychotherapy -Supportive therapy, group therapy, individual therapy -Atarax 25 mg PO Q6 prn -Abilify 10 mg PO QHS -Neurontin 300 mg PO QTID -Trazodone 50 mg PO QHS prn -Zoloft 100 mg PO QDaily
[2017-12-30] MEDS: (Novolog) Insulin Aspart, Recombinant 100 u/ml 10 ml vial SC SCH ×3 (08:38→17:23)
[2017-12-30] MEDS: Pantoprazole 40 mg EC Tab PO SCH (10:40)
[2017-12-30] MEDS: (Lantus) Insulin Glargine, Recombinant SC SCH (22:09)
--- NOTE | 2017-12-30 22:25 | PCM.PYCHPN ---
Psychiatric Progress Note - Psychiatric Progress Note Patient seen today, length of contact: 15 min Patient Chief Complaint: I am not feeling much better as I hear voices especially at night telling me to kill myself. Problems Identified/Issues Discussed: Patient seen, chart reviewed, case discussed with the staff. Issues related to illness and treatment were discussed with the patient and staff. Reported compliant with treatment with no adverse affects. Tolerating treatment very well. Patient reported not feeling better. Patient reported hearing voices telling him to kill himself. Patient reported that mostly he hears voices at night before going to bed. Will increase the dose of Abilify to 15 mg daily. Calm and cooperative. Awake, alert and oriented 3. No psychomotor activity, good eye contact, memory intact. Aftercare discussed with the patient. Denied any delusions, auditory or visual hallucinations, suicidal ideations or homicidal ideations at the time of evaluation. Medical Problems: Hypertension Diabetes mellitus Hypercholesterolemia Diagnostic Results: Reviewed DSM 5 Symptoms Update: Some improvement with treatment. Medication Change: Yes (Dose of Abilify increased to 15 mg daily.) Medical Record Reviewed: Yes Mental Status Examination - Cognitive Function Orientation: Person, Place, Situation, Time Memory: Intact Attention: WNL Concentration: WNL Association: WN Fund of Knowledge: [facility] Decription of patient's judgement and insights: Fair - Mood Mood: Depressed - Affect Affect: Depressed - Speech Speech: Appropriate - Formal Thought Process Formal Thought Process: Hallucinations - Suicidal Ideation Suicidal Ideation: No - Homicidal Ideation Homicidal Ideation: No Goal/Treatment Plan - Goal/Treatment Plan Need for Continued Stay: Remain at risks for inpatient hospitalization, Discharge may exacerbated symptoms, Severe functional impairment Progress Toward Problem(s) and Goals/Treatment Plan: Patient/staff education. Supportive therapy. CBT for relapse prevention. [place] for abstinence. Will increase the dose of Abilify to 15 mg daily. Continue rest of the treatment as before. Estimated Date of D/C: 01/02/18 - Smoking Cessation Smoking Cessation Initiated: No
[2017-12-31] MEDS: (Novolog) Insulin Aspart, Recombinant 100 u/ml 10 ml vial SC SCH ×3 (08:11→17:22)
[2017-12-31] MEDS: Pantoprazole 40 mg EC Tab PO SCH (09:25)
--- NOTE | 2017-12-31 14:39 | PCM.PYCHPN ---
Psychiatric Progress Note - Psychiatric Progress Note Patient seen today, length of contact: 15 min Patient Chief Complaint: I am feeling little better. I'm hearing less voices. Problems Identified/Issues Discussed: Patient seen, chart reviewed, case discussed with the staff. Issues related to illness and treatment were discussed with the patient and staff. Reported compliant with treatment with no adverse affects. Tolerating treatment very well. Patient reported feeling better. His depression and stress and also is hearing less voices. Calm and cooperative. Awake, alert and oriented 3. No psychomotor activity, good eye contact, memory intact. Aftercare discussed with the patient. Denied any delusions, auditory or visual hallucinations, suicidal ideations or homicidal ideations at the time of evaluation. Medical Problems: Hypertension Diabetes mellitus Hypercholesterolemia Diagnostic Results: Reviewed DSM 5 Symptoms Update: Improving with treatment Medication Change: No Medical Record Reviewed: Yes Mental Status Examination - Cognitive Function Orientation: Person, Place, Situation, Time Memory: Intact Attention: WNL Concentration: WNL Association: WNL Fund of Knowledge: WN Decription of patient's judgement and insights: Fair - Mood Mood: Depressed (Much less than before) - Affect Affect: Other (Appropriate) - Speech Speech: Appropriate - Formal Thought Process Formal Thought Process: No Impairment Psychotic Thoughts and Behaviors: None - Suicidal Ideation Suicidal Ideation: No - Homicidal Ideation Homicidal Ideation: No Goal/Treatment Plan - Goal/Treatment Plan Need for Continued Stay: Remain at risks for inpatient hospitalization, Discharge may exacerbated symptoms, Severe functional impairment Progress Toward Problem(s) and Goals/Treatment Plan: Patient/staff education. Supportive therapy. CBT for relapse prevention. MT for abstinence. Continue treatment as before. Estimated Date of D/C: 01/02/18 - Smoking Cessation Smoking Cessation Initiated: No
[2017-12-31] MEDS: (Lantus) Insulin Glargine, Recombinant SC SCH (21:12)
[2018-01-01] MEDS: (Novolog) Insulin Aspart, Recombinant 100 u/ml 10 ml vial SC SCH ×3 (08:07→17:10)
--- NOTE | 2018-01-01 09:05 | PCM.BM ---
Treatment Plan Problems - Problems identified on initial assessmt Schizophrenia Date Initiated: 12/24/17 Time Initiated: 20:32 Assessment reference: NA Status: Active Substance Abuse Date Initiated: 12/24/17 Time Initiated: 20:33 Assessment reference: NA Status: Active Treatment assets and liabiliti Patient Assests: adapts well, cooperative, self-reliant, ADL independent, negotiates basic needs, cognitively intact Patient Liabilities: poor support system, substance abuse, medical problems - Milieu Protocol Maintain good personal hygiene: daily Encourage regular showers, daily Remind patient to perform daily oral care, daily Assist patient to perform ADL's Conduct patient checks and document Observation sheet: Q15 minutes Maintain personal safety: every shift Educate patient to report safety concerns to staff, every shift Monitor environment for contraband/sharps Medication safety: Monitor for expected outcome, potential side effects: every shift, Assess barriers to learning: every shift, Assess readiness for medication education: every shift Milieu Narrative: Patient/staff education. Supportive therapy. CBT for relapse prevention. MA for abstinence. Will increase the dose of Abilify to 15 mg daily. Continue rest of the treatment as before. Family Contact Family involvement: Patient does not wish Family/SO involvement Family contact: Patient declines to allow family contact at present - Goals for Treatment Patient goals for treatment: "I want to go to an outpatient program." Discharge/Continuing Care - Education Needs Education Needs: Patient Medication, Patient Diagnosis/Disease Process, Patient Coping Skills, Patient Placement options, Patient Community resources - Discharge Discharge Criteria: Free of Suicidal thoughts, Normal sleep pattern, Ability to care for self, Reduction of target symptoms Discharge to:: Home - Treatment Team Participation Patient/Family/SO Statement: Patient/staff education. Supportive therapy. CBT for relapse prevention. MA for abstinence. Will increase the dose of Abilify to 15 mg daily. Continue rest of the treatment as before. Discussed with Family/SO: No Was Patient/Family/SO present at Treatment Team Meeting: Yes Treatment Plan Review - Problem Schizophrenia Time Initiated: :32 Substance Abuse Time Initiated: 20:33 - Discharge / Continuing Care Discharge to:: Home Behavioral Health Services: Partial hospital Health Needs: Follow up care/test, Medications/Rx, Alcohol/Drug treatment
[2018-01-01] MEDS: Pantoprazole 40 mg EC Tab PO SCH (10:03)
--- NOTE | 2018-01-01 18:55 | PCM.PYCHPN ---
Psychiatric Progress Note - Psychiatric Progress Note Patient seen today, length of contact: 15 min Patient Chief Complaint: I I'm feeling much better. I'm much less depressed and also I'm not hearing any voices. Problems Identified/Issues Discussed: Patient seen, chart reviewed, case discussed with the staff. Issues related to illness and treatment were discussed with the patient and staff. Reported compliant with treatment with no adverse affects. Tolerating treatment very well. Patient reported feeling better. Patient reported that his depression is also much better and also not hearing any voices. Calm and cooperative. Awake, alert and oriented 3. No psychomotor activity, good eye contact, memory intact. Aftercare discussed with the patient. Denied any delusions, auditory or visual hallucinations, suicidal ideations or homicidal ideations at the time of evaluation. Medical Problems: Hypertension Diabetes mellitus Hypercholesterolemia Diagnostic Results: Reviewed DSM 5 Symptoms Update: Much better with the treatment. Medication Change: No Medical Record Reviewed: Yes Mental Status Examination - Cognitive Function Orientation: Person, Place, Situation, Time Memory: Intact Attention: WNL Concentration: WNL Association: [facility] Fund of Knowledge: [facility] Decription of patient's judgement and insights: Fair - Mood Mood: Depressed - Affect Affect: Other (Appropriate) - Speech Speech: Appropriate - Formal Thought Process Formal Thought Process: No Impairment Psychotic Thoughts and Behaviors: None - Suicidal Ideation Suicidal Ideation: No - Homicidal Ideation Homicidal Ideation: No Goal/Treatment Plan - Goal/Treatment Plan Need for Continued Stay: Remain at risks for inpatient hospitalization, Discharge may exacerbated symptoms, Severe functional impairment Progress Toward Problem(s) and Goals/Treatment Plan: Patient/staff education. Supportive therapy. CBT for relapse prevention. [facility] for abstinence. Continue treatment as before. Patient will go to [facility] for follow-up care after discharge from the hospital. Estimated Date of D/C: 01/02/18 - Smoking Cessation Smoking Cessation Initiated: No
[2018-01-01] MEDS: (Lantus) Insulin Glargine, Recombinant SC SCH (21:54)
[2018-01-02 06:26] VITALS: RESP 20
[2018-01-02] MEDS: (Novolog) Insulin Aspart, Recombinant 100 u/ml 10 ml vial SC SCH ×3 (08:11→16:45)
[2018-01-02] MEDS: Pantoprazole 40 mg EC Tab PO SCH (10:50)
--- NOTE | 2018-01-02 17:55 | PCM.PYCHPN ---
Psychiatric Progress Note - Psychiatric Progress Note Patient seen today, length of contact: 15 min Patient Chief Complaint: I I'm feeling much better. I'm much less depressed and also I'm not hearing any voices. Problems Identified/Issues Discussed: Patient seen, chart reviewed, case discussed with the staff. Issues related to illness and treatment were discussed with the patient and staff. Reported compliant with treatment with no adverse affects. Tolerating treatment very well. Patient reported feeling better. Patient reported that his depression is also much better and also not hearing any voices. Calm and cooperative. Awake, alert and oriented 3. No psychomotor activity, good eye contact, memory intact. Aftercare discussed with the patient. Denied any delusions, auditory or visual hallucinations, suicidal ideations or homicidal ideations at the time of evaluation. Medical Problems: Hypertension Diabetes mellitus Hypercholesterolemia Diagnostic Results: Reviewed Medication Change: No Medical Record Reviewed: Yes Mental Status Examination - Cognitive Function Orientation: Person, Place, Situation, Time Memory: Intact Attention: WNL Concentration: WNL Association: [facility] Fund of Knowledge: [facility] Decription of patient's judgement and insights: Fair - Mood Mood: Depressed - Affect Affect: Other (Appropriate) - Speech Speech: Appropriate - Formal Thought Process Formal Thought Process: No Impairment Psychotic Thoughts and Behaviors: None - Suicidal Ideation Suicidal Ideation: No - Homicidal Ideation Homicidal Ideation: No Goal/Treatment Plan - Goal/Treatment Plan Need for Continued Stay: Remain at risks for inpatient hospitalization, Discharge may exacerbated symptoms, Severe functional impairment Progress Toward Problem(s) and Goals/Treatment Plan: Patient/staff education. Supportive therapy. CBT for relapse prevention. [place] for abstinence. Continue treatment as before. Patient will go to [facility] for follow-up care after discharge from the hospital. Estimated Date of D/C: 01/02/18
[2018-01-02] MEDS: (Lantus) Insulin Glargine, Recombinant SC SCH (21:58)
[2018-01-03 06:54] VITALS: BP 115/75; PULSE 77; TEMP 98.1
[2018-01-03] MEDS: (Novolog) Insulin Aspart, Recombinant 100 u/ml 10 ml vial SC SCH (08:04)
[2018-01-03] MEDS: Pantoprazole 40 mg EC Tab PO SCH (09:14)
--- NOTE | 2018-01-03 19:29 | PCM.PYCHDC ---
Mental Status Examination - Mental Status Examination Description of patient's judgement and insight: Fair Psychotic Thoughts and Behaviors: None Discharge Summary - Discharge Note Reason for Hospitalization: Schizoaffective disorder depressive type. Cocaine use disorder moderate. Laboratory Data: Abnormal Lab Results 01/02/18 01/03/18 20:08 07:32 POC Glucose (mg/dL) 295 H 245 H Consultations:: List each consultation separately and include: 1. Reason for request. 2. Findings. 3. Follow-up Summary of Hospital Course include:: 1. Description of specific treatment plan utilized for patients during their course of treatmen. 2. Summarize the time- course for resolution of acute symptoms and/or regressed behaviors. 3. Describe issues identified and worked on during hospitalization. 4. Describe medication utilized. 5. Describe medical problems identified and treated. 6. Reassessment of suicide risk Summary of Hospital Course: Patient is a 47-year-old male, single with no children, who is unemployed and lives by himself in [place]. Patient is here because he hears a female voice telling him to kill himself. He has a long psychiatric hx of Schizoaffective disorder and he has been in psychiatric units many times for similar symptoms. The last time he was in a psych unit was 4 months ago at [facility]. Patient reports that he feels like people are following him and making him paranoid. He reports taking his medications regularly and the last time he took them was a couple of days ago. He denies any alcohol use but he admits that he uses cocaine. The last time he used cocaine was 3 days ago. He states that he used a dime of cocaine. He denies any other drug use. Patient reports feeling depressed and isolated lately. He denies any suicidal or homicidal ideas. He complains about having stomach pain and requests for Protonix. He denies any chest pain, headache, dizziness, or tremors. Patient reports that he usually spends time at home and does not go out often. Psych hx: Schizoaffective disorder Medical hx: DM, HTN, hypercholesterolemia Family hx: sister with depression, nephew with bipolar disorder - Final Diagnosis (DSM 5) Condition upon Discharge: STABLE Disposition: HOME/ ROUTINE Follow-up Treatment Plan: Patient/staff education. Supportive therapy. CBT for relapse prevention. [facility] for abstinence. Continue treatment as before. Patient will go to [facility] for follow-up care after discharge from the hospital. Prescriptions/Medication Reconciliation: ARIPiprazole [Abilify] 15 mg PO DAILY #30 tab Gabapentin [Neurontin] 300 mg PO TID #90 cap Pantoprazole [Protonix EC Tab] 40 mg PO DAILY #30 ect Sertraline [Zoloft] 100 mg PO DAILY #30 tab traZODone [Desyrel] 50 mg PO HS #30 tab
== END 2018-01-03 11:17 | disposition home or self-care (01) | DRG 430 ==
LOC: C.ER 15:15 → C.5E 18:57
PROC: GZHZZZZ Group Psychotherapy (ICD-10-PCS; principal; 2017-12-24)
PROC: GZ58ZZZ Individual Psychotherapy, Cognitive-Behavioral (ICD-10-PCS; 2017-12-24)
PROC: GZ56ZZZ Individual Psychotherapy, Supportive (ICD-10-PCS; 2017-12-24)
DX: F25.1 Schizoaffective disorder, depressive type (principal); I11.0 Hypertensive heart disease with heart failure; I50.9 Heart failure, unspecified; F14.20 Cocaine dependence, uncomplicated; R45.851 Suicidal ideations; E78.00 Pure hypercholesterolemia, unspecified; F41.8 Other specified anxiety disorders; E11.9 Type 2 diabetes mellitus without complications; F31.9 Bipolar disorder, unspecified; J45.909 Unspecified asthma, uncomplicated; I25.10 Atherosclerotic heart disease of native coronary artery without angina pectoris; Z81.8 Family history of other mental and behavioral disorders; Z95.0 Presence of cardiac pacemaker; Z87.891 Personal history of nicotine dependence; Z95.5 Presence of coronary angioplasty implant and graft; Z79.4 Long term (current) use of insulin

== ENCOUNTER 2018-03-25 21:44 | Emergency (ER) | payer MEDICAID, OTHER ==
[2018-03-25 21:45] VITALS: BMI 37.0
[2018-03-25 21:53] VITALS: BP 126/68; PULSE 68; RESP 14; TEMP 97.7; O2SAT 97
--- NOTE | 2018-03-25 22:16 | C.PDOC ---
History Of Present Illness 47 year old male presents to the ER stating he is depressed. Patient has a Hx of depression and schizophrenia, he was seen at [facility] earlier today for the same and has had many similar presentations before. Denies suicidal ideation or homicidal ideation. Time Seen by Provider: 03/25/18 21:59 Chief Complaint (Nursing): Psychiatric Evaluation History Per: Patient History/Exam Limitations: no limitations Onset/Duration Of Symptoms: Hrs Current Symptoms Are (Timing): Still Present Associated Symptoms: Depression. denies: Suicidal Thoughts, Other (Homicidal ideation) Recent travel outside of the [place]: No Past Medical History Reviewed: Historical Data, Nursing Documentation, Vital Signs Vital Signs: Last Vital Signs Temp 97.7 F 03/25/18 21:50 Pulse 68 03/25/18 21:50 Resp 14 03/25/18 21:50 BP 126/68 03/25/18 21:50 Pulse Ox 97 03/25/18 21:50 - Medical History PMH: Anemia, Anxiety, Arthritis, Asthma, Bipolar Disorder, Cardia Arrhythmia, CHF, Depression, Gastritis, HTN, Hypercholesterolemia, Hyperlipidemia, Schizophrenia Denies: Diabetes, Hepatitis, HIV, Chronic Kidney Disease, Seizures, Sexually Transmitted Disease Surgical History: Coronary Stent (2), Pacemaker (since 2010) - [facility] Procedures (01/25/18) ASSISTANCE WITH RESPIRATORY VENTILATION, <24 HRS, CPAP (10/02/17) FLUOROSCOPY OF LEFT HEART USING LOW OSMOLAR CONTRAST (01/23/17) FLUOROSCOPY OF MULT COR ART USING L OSM CONTRAST (01/23/17) GROUP PSYCHOTHERAPY (01/25/18) INDIV PSYCHOTHERAPY FOR SUBSTANCE ABUSE, COGNITIV BEHAVIORAL (07/25/17) INDIV PSYCHOTHERAPY FOR SUBSTANCE ABUSE, PSYCHOEDUCATION (01/25/18) INDIVID PSYCHOTHERAP NEC (10/05/14) INDIVIDUAL PSYCHOTHERAPY, BEHAVIORAL (02/04/16) INDIVIDUAL PSYCHOTHERAPY, COGNITIVE-BEHAVIORAL (12/24/17) INDIVIDUAL PSYCHOTHERAPY, SUPPORTIVE (12/24/17) INTRODUCE OF OTH THERAP SUBST INTO RESP TRACT, VIA OPENING (10/02/17) MEASURE OF CARDIAC SAMPL & PRESSURE, L HEART, PERC APPROACH (01/23/17) MEASUREMENT OF CARDIAC PACEMAKER, EXTERNAL APPROACH (01/23/17) MEDICATION MANAGEMENT (12/23/16) OTHER GROUP THERAPY (10/05/14) PSYCHIAT DRUG THERAP NEC (11/30/14) Family History: States: CAD - Social History Hx Tobacco Use: Yes Hx Alcohol Use: No Hx Substance Use: Yes (Cocaine dime bag every few months) - Immunization History Hx Tetanus Toxoid Vaccination: Yes Hx Influenza Vaccination: No Hx Pneumococcal Vaccination: No Review Of Systems Constitutional: Negative for: Fever, Chills Cardiovascular: Negative for: Chest Pain, Palpitations Respiratory: Negative for: Cough, Shortness of Breath Gastrointestinal: Negative for: Nausea, Vomiting Psych: Positive for: Depression. Negative for: Suicidal ideation, Other (Homicidal ideation) Physical Exam - Physical Exam Appears: Non-toxic, Other (Tall large black male, calm, cooperative) Skin: Normal Color, Warm, Dry Head: Atraumatic, Normacephalic Eye(s): bilateral: Normal Inspection Oral Mucosa: Moist Neck: Normal, Supple Chest: Symmetrical, No Tenderness Cardiovascular: Rhythm Regular Respiratory: Normal Breath Sounds, No Rales, No Rhonchi, No Wheezing Gastrointestinal/Abdominal: Soft, No Tenderness Neurological/Psych: Oriented x3, Normal Speech ED Course And Treatment O2 Sat by Pulse Oximetry: 97 (Room air) Pulse Ox Interpretation: Normal Medical Decision Making Medical Decision Making: depression/schizophrenia eval earlier today @ [facility] without adm many prior evals for same. Disposition Doctor Will See Patient In The: Office Counseled Patient/Family Regarding: Studies Performed, Diagnosis - Disposition Referrals: [facility] [Outside] [facility] [Outside] [facility] [Outside] [facility] [Outside] Disposition: HOME/ ROUTINE Disposition Time: 22:15 Condition: GOOD Additional Instructions: continue outpatient psych services as directed Instructions: Depression, Schizoaffective Disorder Forms: [facility] [facility] (Mongolian) - Clinical Impression Clinical Impression: Schizoaffective disorder, Depression - Scribe Statement The provider has reviewed the documentation as recorded by the Scribe Rocky Chavez All medical record entries made by the Scribe were at my direction and personally dictated by me. I have reviewed the chart and agree that the record accurately reflects my personal performance of the history, physical exam, medical decision making, and the department course for this patient. I have also personally directed, reviewed, and agree with the discharge instructions and disposition.
== END 2018-03-25 22:21 | disposition home or self-care (01) ==
LOC: C.ER 21:44
DX: F25.9 Schizoaffective disorder, unspecified (principal); F32.9 Major depressive disorder, single episode, unspecified; E78.00 Pure hypercholesterolemia, unspecified; I50.9 Heart failure, unspecified; I10 Essential (primary) hypertension; Z72.0 Tobacco use; Z95.0 Presence of cardiac pacemaker

== ENCOUNTER 2018-07-15 16:25 | Inpatient (IN) | payer OTHER ==
[2018-07-15 16:26] VITALS: BMI 37.0
[2018-07-15 17:06] LABS: BASO % 0.2 % (0.0-2.0); EOS # 0.2 K/uL (0.0-0.7); EOS % 2.2 % (0.0-4.0); HEMOGLOBIN 10.2 g/dL (12.0-18.0); LYMPH # 1.2 K/uL (1.0-4.3); LYMPH % 13.9 % (20.0-40.0); MEAN CORPUSCULAR HEMOGLOBIN 25.6 pg (27.0-31.0); MEAN CORPUSCULAR HGB CONC 31.5 g/dL (33.0-37.0); MEAN PLATELET VOLUME 7.3 fL (7.2-11.7); MONO # 0.7 K/uL (0.0-0.8); MONO % 8.4 % (0.0-10.0); NEUT # 6.6 K/uL (1.8-7.0); NEUT % 75.3 % (50.0-75.0); RBC 3.98 Mil/uL (4.40-5.90); RED CELL DISTRIBUTION WIDTH 16.7 % (11.5-14.5); WHITE BLOOD COUNT 8.7 K/uL (4.8-10.8)
[2018-07-15 17:15] LABS: SQUAMOUS EPITHIAL 12 /hpf (0-5); URINE BACTERIA FEW (<OCC); URINE BILIRUBIN NEGATIVE (NEGATIVE); URINE BLOOD NEGATIVE (NEGATIVE); URINE CLARITY Hazy (Clear); URINE COLOR Yellow (YELLOW); URINE GLUCOSE (UA) NORMAL (Normal); URINE LEUKOCYTE ESTERASE 1+ Leu/uL (Negative); URINE PROTEIN NEGATIVE (NEGATIVE); URINE UROBILINOGEN NORMAL mg/dL (0.2-1.0)
[2018-07-15 17:17] LABS: ALB/GLOB RATIO 1.5 (1.0-2.1); ALBUMIN 4.4 g/dL (3.5-5.0); ALT/SGPT 20 U/L (21-72); AST/SGOT 81 U/L (17-59); BLOOD UREA NITROGEN 25 mg/dL (9-20); CALCIUM 9.2 mg/dl (8.6-10.4); GFR NON-AFRICAN AMERICAN > 60
[2018-07-15 17:22] LABS: BARBITURATES, UR NEGATIVE (NEGATIVE); BENZODIAZEPINES, UR NEGATIVE (NEGATIVE); OPIATES, UR NEGATIVE (NEGATIVE); PHENCYCLIDINE, UR NEGATIVE (NEGATIVE)
--- NOTE | 2018-07-15 17:59 | C.PDOC ---
History Of Present Illness Patient presents to ED c/o feeling depressed and hearing voices for approx 1 week. He states he has suicidal ideations, plans to take his HTN medications to overdose. Patient has PMHx IDDM, HTN, CAD, hyperlpipicemia, CHF, schizoaf fective disorder - takes Risperdal, Celexa, and Trazodone, and staes he has been compliant. He denies current physical complaints. Time Seen by Provider: 07/15/18 16:34 Chief Complaint (Nursing): Psychiatric Evaluation History Per: Patient History/Exam Limitations: no limitations Onset/Duration Of Symptoms: Days (approx 1 week) Current Symptoms Are (Timing): Still Present Severity: Moderate Involuntary Hold By: Emergency Physician Past Medical History Reviewed: Historical Data, Nursing Documentation, Vital Signs Vital Signs: Last Vital Signs Temp 98.1 F 07/15/18 16:28 Pulse 96 H 07/15/18 16:28 Resp 18 07/15/18 16:28 BP 106/69 07/15/18 16:28 Pulse Ox 100 07/15/18 16:28 - Medical History PMH: Anemia, Anxiety, Arthritis, Asthma, Bipolar Disorder, Cardia Arrhythmia, CHF, Depression, Gastritis, HTN, Hypercholesterolemia, Hyperlipidemia, Schizophrenia Surgical History: Coronary Stent (2), Pacemaker (since 2010) - [facility] Procedures (01/25/18) ASSISTANCE WITH RESPIRATORY VENTILATION, <24 HRS, CPAP (10/02/17) FLUOROSCOPY OF LEFT HEART USING LOW OSMOLAR CONTRAST (01/23/17) FLUOROSCOPY OF MULT COR ART USING L OSM CONTRAST (01/23/17) GROUP PSYCHOTHERAPY (01/25/18) INDIV PSYCHOTHERAPY FOR SUBSTANCE ABUSE, COGNITIV BEHAVIORAL (07/25/17) INDIV PSYCHOTHERAPY FOR SUBSTANCE ABUSE, PSYCHOEDUCATION (01/25/18) INDIVID PSYCHOTHERAP NEC (10/05/14) INDIVIDUAL PSYCHOTHERAPY, BEHAVIORAL (02/04/16) INDIVIDUAL PSYCHOTHERAPY, COGNITIVE-BEHAVIORAL (12/24/17) INDIVIDUAL PSYCHOTHERAPY, SUPPORTIVE (12/24/17) INTRODUCE OF OTH THERAP SUBST INTO RESP TRACT, VIA OPENING (10/02/17) MEASURE OF CARDIAC SAMPL & PRESSURE, L HEART, PERC APPROACH (01/23/17) MEASUREMENT OF CARDIAC PACEMAKER, EXTERNAL APPROACH (01/23/17) MEDICATION MANAGEMENT (12/23/16) OTHER GROUP THERAPY (10/05/14) PSYCHIAT DRUG THERAP NEC (11/30/14) Family History: States: CAD - Social History Hx Tobacco Use: Yes Hx Alcohol Use: No Hx Substance Use: Yes (Cocaine dime bag every few months) - Immunization History Hx Tetanus Toxoid Vaccination: Yes Hx Influenza Vaccination: No Hx Pneumococcal Vaccination: No Review Of Systems Constitutional: Negative for: Fever, Chills Cardiovascular: Negative for: Chest Pain, Palpitations Respiratory: Negative for: Shortness of Breath Gastrointestinal: Negative for: Nausea, Vomiting, Abdominal Pain, Diarrhea Genitourinary: Negative for: Dysuria, Hematuria Skin: Negative for: Rash Neurological: Negative for: Headache Physical Exam - Physical Exam Appears: Well, Non-toxic, No Acute Distress, Other (flat affect ) Skin: Normal Color, Warm, Dry Eye(s): bilateral: Normal Inspection Oral Mucosa: Moist Cardiovascular: Rhythm Regular, Murmur (2/6 holosystolic) Respiratory: Normal Breath Sounds, No Rales, No Rhonchi, No Wheezing Gastrointestinal/Abdominal: Normal Exam, Bowel Sounds, Soft, No Tenderness Extremity: Normal ROM, No Deformity Neurological/Psych: Oriented x3 ED Course And Treatment - Laboratory Results Result Diagrams: 07/15/18 17:02 07/15/18 17:02 Lab Results: Total Bilirubin 0.8 mg/dL (0.2-1.3) 07/15/18 17:02 AST 81 U/L (17-59) H D 07/15/18 17:02 ALT 20 U/L (21-72) L D 07/15/18 17:02 Alkaline Phosphatase 67 U/L (38-126) 07/15/18 17:02 Total Protein 7.4 g/dL (6.3-8.3) 07/15/18 17:02 Albumin 4.4 g/dL (3.5-5.0) 07/15/18 17:02 Globulin 2.9 gm/dL (2.2-3.9) 07/15/18 17:02 Albumin/Globulin Ratio 1.5 (1.0-2.1) 07/15/18 17:02 Urine Color Yellow (YELLOW) 07/15/18 17:02 Urine Clarity Hazy (Clear) 07/15/18 17:02 Urine pH 5.0 (5.0-8.0) 07/15/18 17:02 Ur Specific [place] 1.020 (1.003-1.030) 07/15/18 17:02 Urine Protein Negative mg/dL (NEGATIVE) 07/15/18 17:02 Urine Glucose (UA) Normal mg/dL (Normal) 07/15/18 17:02 Urine Ketones Negative mg/dL (NEGATIVE) 07/15/18 17:02 Urine Blood Negative (NEGATIVE) 07/15/18 17:02 Urine Nitrate Negative (NEGATIVE) 07/15/18 17:02 Urine Bilirubin Negative (NEGATIVE) 07/15/18 17:02 Urine Urobilinogen Normal mg/dL (0.2-1.0) 07/15/18 17:02 Ur Leukocyte Esterase 1+ Eleazar/uL (Negative) H 07/15/18 17:02 Urine WBC (Auto) 20 /hpf (0-5) H 07/15/18 17:02 Urine RBC (Auto) 1 /hpf (0-3) 07/15/18 17:02 Ur Squamous Epith Cells 12 /hpf (0-5) H 07/15/18 17:02 Urine Bacteria Few (<OCC) H 07/15/18 17:02 O2 Sat by Pulse Oximetry: 100 (RA) Pulse Ox Interpretation: Normal Progress Note: Blood work, UA, UDS ordered and reviewed. 6:00pm- Patient medically cleared. Pending crisis. Disposition - Disposition Disposition Time: 19:00 Condition: STABLE Forms: [facility] (Kazakh) - Clinical Impression Clinical Impression: Depression Physician Patient Turnover Patient Signed Over To: Zaheer Osei Handoff Comments: pending crisis
--- NOTE | 2018-07-15 21:43 | PCM.BM ---
<Win Allen - Last Filed: 07/15/18 21:41> Treatment Plan Problems - Problems identified on initial assessmt Hopelessness/Helplessness Date Initiated: 07/15/18 Time Initiated: 20:30 Assessment reference: NA Status: Active Suicidal Ideation Date Initiated: 07/15/18 Time Initiated: 20:30 Assessment reference: NA Status: Active Treatment assets and liabiliti Patient Assests: cooperative, self-reliant, ADL independent, negotiates basic needs, cognitively intact Patient Liabilities: physical pain, poor support system, substance abuse (Cocaine, heroin) - Milieu Protocol Maintain good personal hygiene: daily Encourage regular showers, daily Remind patient to perform daily oral care, every shift Assist patient to perform ADL's Conduct patient checks and document Observation sheet: Q15 minutes Maintain personal safety: every shift Educate patient to report safety concerns to staff, every shift Monitor environment for contraband/sharps Medication safety: Monitor for expected outcome, potential side effects: every shift, Assess barriers to learning: every shift, Assess readiness for medication education: every shift <Ariana Moore - Last Filed: 07/16/18 12:04> Family Contact Family involvement: Famliy/SO not involved - Goals for Treatment Patient goals for treatment: "I want to go back to my outpatient psychiatrist." Discharge/Continuing Care - Education Needs Education Needs: Patient Medication, Patient Coping Skills - Discharge Discharge Criteria: Tolerates medication w/o severe side effects, Free of Suicidal thoughts, Reduction of target symptoms Discharge to:: Home - Treatment Team Participation Discussed with Family/SO: No Was Patient/Family/SO present at Treatment Team Meeting: Yes <Matheus Vázquez - Last Filed: 07/16/18 23:26> - Diagnosis (1) Cocaine use disorder, severe, dependence Status: Acute Interventions: 07/16/18 23:26 * Assess 7x/week regarding severity of withdrawal * Educate regarding risks, benefits, side effects and alternatives of medications * Use Motivational Interviewing for abstinence * Use CBT for relapse prevention * Medication management for withdrawal symptoms * Encourage medication assisted treatment * (2) Schizo affective schizophrenia Status: Chronic Interventions: 07/16/18 23:26 * Assess/adjust medications daily and /or as needed * See patient on an individual basis 7x/week to assess level of manic behaviors and stability * Discuss risks, benefits, side effects and alternatives of medications *
[2018-07-16] MEDS: (Novolog) Insulin Aspart, Recombinant 100 u/ml 10 ml vial SC SCH ×2 (11:48→17:08)
--- NOTE | 2018-07-16 12:12 | PCM.PSYCH ---
Initial Psychiatric Evaluation - Initial Psychiatric Evaluation Type of Admission: Voluntary Legal Status: Capacity Chief Complaint (in patient's own words): "I am hearing voices" History of Present Illness and Precipitating Events: The patient is seen, chart reviewed and case discussed. He is well-known to the process description writer and staff here from numerous previous admissions. This is a 47-year-old -Mal[place]ian male, single with no child, on di sability, living alone in [place]. Currently, he reports depressive sxs and paranoia and AH telling him derogatory things or telling him to kill self. No plans or intentions now. He has been depressed for a week or so. He doesn;t think it is the cocaine. He gets admitted every other month between [facility] due to his noncompliance. He smokes 1/2 ppd cigarettes a day. Denies alcohol use but he used to drink in the past He still uses cocaine and he is now on 8 to 16 mg suboxone. He was once on 16 but dose is decreased. He claims it started by his current psychiatrist after he had been abusing heroin for a few months. It's not clear why he was kept on it and high dose with such a short use history. Nevertheless, it is confirmed by his pharmacy and [employer], and a detox is started. He wants to come off. Plus, he has a surgery coming up. PMH: DM, HTN psych hx: Schizophrenia (dx at 21y/o) Family psych hx: Depression (sister) Social hx: single, no children. Lives on his own. 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 Current Medications: Active Medications Generic Name Dose Route Start Last Admin Trade Name Sanchez PRN Reason Stop Dose Admin Amlodipine Besylate 5 mg 07/16/18 10:00 07/16/18 09:34 Norvasc PO 5 mg DAILY FROYLAN Administration Aspirin 81 mg 07/16/18 10:00 07/16/18 09:34 Ecotrin PO 81 mg DAILY FROYLAN Administration Buprenorphine HCl 8 mg 07/17/18 10:00 Subutex SL 07/20/18 09:59 .TAPER FROYLAN Taper Buprenorphine HCl 2 mg 07/16/18 12:09 Subutex SL 07/16/18 12:10 ONCE ONE Buprenorphine HCl 6 mg 07/16/18 13:09 Subutex SL 07/16/18 13:10 ONCE ONE Clopidogrel Bisulfate 75 mg 07/16/18 10:00 07/16/18 09:34 Plavix PO 75 mg DAILY FROYLAN Administration Famotidine 20 mg 07/16/18 10:00 07/16/18 09:34 Pepcid PO 20 mg BID FROYLAN Administration Insulin Aspart 20 unit 07/16/18 11:30 07/16/18 11:48 Novolog SC Not Given AC [facility] Insulin Glargine 45 unit 07/16/18 22:00 Lantus SC HS FROYLAN Lisinopril 10 mg 07/16/18 10:00 07/16/18 09:34 Zestril PO 10 mg DAILY FROYLAN Administration Risperidone 2 mg 07/16/18 10:00 07/16/18 09:34 Risperdal Tab PO 2 mg BID FROYLAN Administration Rosuvastatin Calcium 20 mg 07/15/18 22:00 07/15/18 22:41 Crestor PO 20 mg HS FROYLAN Administration Trazodone HCl 100 mg 07/15/18 22:00 07/15/18 22:41 Desyrel PO 100 mg HS PRN Administration Insomnia Past Psychiatric History - Past Psychiatric History Previous Treatment History: Inpatient Pertinent Medical Hx (Current Medical&Sleep Prob, Allergies): Allergies Allergy/AdvReac Type Severity Reaction Status Date / Time No Known Allergies Allergy Verified 03/25/18 21:52 Aspirin [Ecotrin] 81 mg PO DAILY 12/24/17 Atorvastatin [Lipitor] 20 mg PO DAILY 12/24/17 Insulin Aspart, Recombinant [Novolog] 20 unit SC AC 12/24/17 Lisinopril [Zestril] 10 mg PO DAILY 12/24/17 amLODIPine [Norvasc] 5 mg PO DAILY 12/24/17 Insulin Glargine, Recombina [Lantus] 45 unit SC HS unit 01/03/18 Aripiprazole [Abilify] 20 mg PO DAILY #30 tablet 01/30/18 Citalopram [celEXA] 20 mg PO DAILY #30 tab 01/30/18 Gabapentin [Neurontin] 300 mg PO TID #90 cap 01/30/18 Pantoprazole [Protonix EC Tab] 40 mg PO DAILY #30 ect 01/30/18 traZODone [Desyrel] 100 mg PO HS #30 tab 01/30/18 Review of Systems - Psychiatric Psychiatric: Abnormal Sleep Pattern, Anhedonia, Anxiety, Behavioral Changes, Change in Appetite, Depression, Difficulty Concentrating, Hallucinations, Irri tability, Mood Swings, Paranoia. absent: Homicidal Ideation, Suicidal Ideation Mental Status Examination - Personal Presentation Personal Presentation: Looks older than stated age - Affect Affect: Constricted - Motor Activity Motor Activity: Calm - Reliability in Providing Information Reliability in Providing Information: Good - Speech Speech: Organized - Mood Mood: Depressed, Anxious - Formal Thought Process Formal Thought Process: Delusions, Paranoia, Circumstantial - Cognitive Functions Orientation: Person, Place, Situation, Time Sensorium: Alert Attention/Concentration: Easily distracted Estimate of Intelligence: Average Judgement: Intact, as evidence by: Insight regarding need for hospitalization Memory: Recent intact, as evidence by: Ability to recall events of the day, Remote impaired as evidenced by: Inability to recall sig life events - Risk Risk: Withdrawal, Diminished functioning - Strength & Assets Inventory Strength & Assets Inventory: Cooperative - Limitations Limitations: Other DSM 5 DX - DSM 5 DSM 5 Diagnosis: Schizoaffective d/o - depressed Cocaine use d/o - severe Opioid use d/o - severe on maintenance - Recommended/Plan of Treatment Treatment Recommendations and Plan of Treatment: Risperidone AH and paranoia Lexapro for depression and anxiety gabapentin for anxiety Subutex taper Continue medical meds Attend groups and activities CBT and support Monitor labs Refer back to [facility] Outpt program 34 min
[2018-07-16] MEDS ORDERED: Buprenorphine Hydrochloride 2 mg SL ONE ×3 (12:15→13:15)
[2018-07-16] MEDS: (Lantus) Insulin Glargine, Recombinant SC SCH (22:48)
[2018-07-17] MEDS: (Novolog) Insulin Aspart, Recombinant 100 u/ml 10 ml vial SC SCH ×3 (07:38→17:10)
[2018-07-17] MEDS: Buprenorphine Hydrochloride 2 mg SL SCH (09:31)
[2018-07-17] MEDS ORDERED: Buprenorphine Hydrochloride 2 mg SL SCH (10:00)
--- NOTE | 2018-07-17 11:49 | PCM.PYCHPN ---
Psychiatric Progress Note - Psychiatric Progress Note Patient seen today, length of contact: 16 min Patient Chief Complaint: "I am better" Problems Identified/Issues Discussed: The pt is seen, chart reviewed, case discussed with staff. The pt is compliant with medications and reports no side-effects. Symptoms are improving but needs more time to stabilize. Pt attends groups and activities. Support given, psycho-education provided. After care discussed. Medication Change: Yes (meds change daily) Medical Record Reviewed: Yes Mental Status Examination - Cognitive Function Orientation: Person, Place, Situation, Time Memory: Intact Attention: WNL Concentration: Poor Association: WNL Fund of Knowledge: WNL - Mood Mood: Depressed, Anxious - Affect Affect: Constricted - Speech Speech: Appropriate - Formal Thought Process Formal Thought Process: Delusions, Paranoia, Circumstantial - Suicidal Ideation Suicidal Ideation: No - Homicidal Ideation Homicidal Ideation: No Goal/Treatment Plan - Goal/Treatment Plan Need for Continued Stay: Severe depression anxiety, Discharge may exacerbated symptoms, Severe functional impairment Progress Toward Problem(s) and Goals/Treatment Plan: Risperidone AH and paranoia Lexapro for depression and anxiety Subutex taper Continue medical meds Attend groups and activities CBT and support Monitor labs Refer back to [facility] Outpt program
[2018-07-17] MEDS: (Lantus) Insulin Glargine, Recombinant SC SCH (21:49)
[2018-07-18] MEDS: (Novolog) Insulin Aspart, Recombinant 100 u/ml 10 ml vial SC SCH ×3 (07:51→17:02)
[2018-07-18] MEDS: Buprenorphine Hydrochloride 2 mg SL SCH (09:58)
--- NOTE | 2018-07-18 09:58 | PCM.PYCHPN ---
Psychiatric Progress Note - Psychiatric Progress Note Patient seen today, length of contact: 16 min Patient Chief Complaint: "I am hearing voices but less" Problems Identified/Issues Discussed: The pt is seen again, chart reviewed, and case is discussed with the team. The pt denies any side-effects from meds. Attends activities and groups, brief individual therapy provided Not ready for discharge due to ongoing symptoms and high relapse risk. After care discussed again. Medication Change: Yes (meds adjusted) Medical Record Reviewed: Yes Mental Status Examination - Cognitive Function Orientation: Person, Place, Situation, Time Memory: Intact Attention: WNL Concentration: Poor Association: WNL Fund of Knowledge: WNL - Mood Mood: Depressed, Anxious - Affect Affect: Constricted - Speech Speech: Appropriate - Formal Thought Process Formal Thought Process: Hallucinations, Paranoia, Circumstantial - Suicidal Ideation Suicidal Ideation: No - Homicidal Ideation Homicidal Ideation: No Goal/Treatment Plan - Goal/Treatment Plan Need for Continued Stay: Severe depression anxiety, Discharge may exacerbated symptoms, Severe functional impairment Progress Toward Problem(s) and Goals/Treatment Plan: Risperidone AH and paranoia Lexapro for depression and anxiety Subutex taper Continue medical meds Attend groups and activities CBT and support Monitor labs Refer back to [facility] Outpt program
[2018-07-18] MEDS: (Lantus) Insulin Glargine, Recombinant SC SCH (21:18)
[2018-07-19] MEDS ORDERED: Magnesium Hydroxide Susp 30 ml UD PO ONE (04:44)
[2018-07-19] MEDS: (Novolog) Insulin Aspart, Recombinant 100 u/ml 10 ml vial SC SCH ×3 (08:04→17:20)
[2018-07-19] MEDS: Buprenorphine Hydrochloride 2 mg SL SCH (09:17)
[2018-07-19] MEDS ORDERED: Sodium Chloride 0.9% 1,000 ML IV SCH (21:30)
--- NOTE | 2018-07-19 22:16 | CP.PCM.HP ---
<Bryan Garcia - Last Filed: 07/19/18 22:10> History of Present Illness - History of Present Illness History of Present Illness: Medicine H&P for Dr. Deras's service CC: Hypotension HPI: 47 yo male w/ PMH of schizoaffective disorder, cocaine use disorder, depression, CAD with stents, HTN, DM2, and arthrits admitted to psych unit for depression and audio hallucinations telling patient to kill himself. Patient was constipated yesterday and received prune juice. Patient then proceeded to have multiple large diarrheal bowel movements with no blood. Patient had more liquid bowel movements but less than yesterday. Nurse checked his blood pressure after he became nauseous and became diaphoretic. Repeat blood pressures confirmed patient had hypotension and was transferred to medical floor. Admits to dizziness, diaphoresis, lightheadedness, and nausea. Denies fevers, chills, cp, sob, vomiting, constipation or diarrhea, and dysuria. PMH-schizoaffective disorder, cocaine use disorder, depression, HTN, DM2, and arthritits PSH- quadriceps surgery FH- Denies Meds- see MAR Alls: NKDA Code: Full code Advanced Directive: sister Present on Admission - Present on Admission Any Indicators Present on Admission: No Review of Systems - Review of Systems All systems: reviewed and no additional remarkable complaints except Review of Systems: see hpi Past Patient History - Infectious Disease Hx of Infectious Diseases: None - Tetanus Immunizations Tetanus Immunization: Unknown - Past Medical History & Family History Past Medical History?: Yes - Past Social History Smoking Status: Light Smoker < 10 Cigarettes Daily - CARDIAC Hx Congestive Heart Failure: Yes Hx Hypertension: Yes - PULMONARY Hx Asthma: Yes - NEUROLOGICAL HX Cerebrovascular Accident: No Hx Seizures: No - HEENT Hx HEENT Problems: No - RENAL Hx Chronic Kidney Disease: No - ENDOCRINE/METABOLIC Hx Endocrine Disorders: Yes Hx Diabetes Mellitus Type 1: Yes - HEMATOLOGICAL/ONCOLOGICAL Hx Anemia: Yes - INTEGUMENTARY Hx Dermatological Problems: No (TATOOS) - MUSCULOSKELETAL/RHEUMATOLOGICAL Hx Arthritis: Yes - GASTROINTESTINAL Hx Gastritis: Yes - GENITOURINARY/GYNECOLOGICAL Hx Sexually Transmitted Disorders: No - PSYCHIATRIC Hx Substance Use: Yes (hx of heroin) - SURGICAL HISTORY Hx Coronary Stent: Yes (2) - ANESTHESIA Hx Anesthesia: Yes Hx Anesthesia Reactions: No Hx Malignant Hyperthermia: No Meds Allergies/Adverse Reactions: Allergies Allergy/AdvReac Type Severity Reaction Status Date / Time No Known Allergies Allergy Verified 03/25/18 21:52 Physical Exam - Constitutional Appears: In Acute Distress - Head Exam Head Exam: NORMAL INSPECTION, NORMOCEPHALIC - Eye Exam Eye Exam: EOMI, Normal appearance. absent: Nystagmus, Scleral icterus - ENT Exam ENT Exam: Mucous Membranes Dry - Respiratory Exam Respiratory Exam: Clear to Auscultation Bilateral, NORMAL BREATHING PATTERN. absent: Rhonchi, Wheezes - Cardiovascular Exam Cardiovascular Exam: REGULAR RHYTHM, +S1, +S2. absent: +S4 - GI/Abdominal Exam GI & Abdominal Exam: Normal Bowel Sounds, Soft. absent: Diminished Bowel Sounds, Distended, Firm, Guarding - Extremities Exam Extremities exam: Positive for: normal inspection. Negative for: calf tendern ess, pedal edema - Neurological Exam Neurological exam: Alert, Oriented x3 - Psychiatric Exam Psychiatric exam: Normal Affect, Normal Mood - Skin Skin Exam: Dry, Intact, Normal Color Results - Vital Signs Recent Vital Signs: Last Vital Signs Temp 97.5 F L 07/19/18 07:47 Pulse 96 H 07/19/18 20:36 Resp 18 07/18/18 07:07 BP 80/56 L 07/19/18 20:36 Pulse Ox 95 07/15/18 19:57 - Labs Result Diagrams: 07/15/18 17:02 07/15/18 17:02 Labs: Laboratory Results - last 24 hr 07/19/18 07/19/18 07/19/18 07:18 11:32 16:06 POC Glucose (mg/dL) 237 H 245 H 190 H 07/19/18 20:14 POC Glucose (mg/dL) 183 H Assessment & Plan - Assessment and Plan (Free Text) Assessment: 47 yo male w/ PMH of schizoaffective disorder, cocaine use disorder, depression, HTN, DM2, and arthritits admitted to psych unit for depression and audio hallucinations telling patient to kill himself. Plan: Hypotension NS 1L bolus @ 999 EKG, GREGORY panel pending CBC, CMP, Mag, Phos pending Repeat blood pressure checks CAD w/2 stents Plavix 75mg daily Aspirin 81mg daily Rosuvastatin 20mg po daily DM2 ACHS Insulin 20 unit SC AC Glargine 45 unit S HS Hx of HTN hold home meds as blood pressure low Depression as per psych Lexapro 10mg po daily Scizoaffective disorder Risperidone 2mg po bid Trazodone 100mg po hs prn Ibuprofen PRN for arhtritis GI ppx: Pepcid 20mg po bid DVt ppx: SCDs b/l, pending cbc Case d.w Dr. Deras PGY-1 Bryan Garcia <Isac Deras - Last Filed: 07/20/18 06:24> Results - Vital Signs Recent Vital Signs: Last Vital Signs Temp 98.7 F 07/19/18 23:30 Pulse 99 H 07/20/18 00:47 Resp 20 07/19/18 23:30 BP 100/62 07/19/18 23:30 Pulse Ox 97 07/19/18 23:30 - Labs Result Diagrams: 07/19/18 22:55 07/19/18 22:55 Labs: Laboratory Results - last 24 hr 07/19/18 07/19/18 07/19/18 07:18 11:32 16:06 WBC RBC Hgb Hct MCV MCH MCHC RDW Plt Count MPV Neut % (Auto) Lymph % (Auto) [place] % (Auto) Eos % (Auto) Baso % (Auto) Neut # (Auto) Lymph # (Auto) [place] # (Auto) Eos # (Auto) Baso # (Auto) Neutrophils % (Manual) Band Neutrophils % Lymphocytes % (Manual) Monocytes % (Manual) Platelet Estimate Large Platelets Polychromasia Hypochromasia (manual) Poikilocytosis (manual Anisocytosis (manual) Ovalocytes Sodium Potassium Chloride Carbon Dioxide Anion Gap BUN Creatinine Est GFR ( Amer) Est GFR (Non-Af Amer) POC Glucose (mg/dL) 237 H 245 H 190 H Random Glucose Calcium Phosphorus Magnesium Total Bilirubin AST ALT Alkaline Phosphatase Total Creatine Kinase CK-MB (Mass) Troponin I Total Protein Albumin Globulin Albumin/Globulin Ratio 07/19/18 07/19/18 07/19/18 20:14 22:55 22:55 WBC 9.7 RBC 4.05 L Hgb 10.5 L Hct 32.5 L MCV 80.2 MCH 25.9 L MCHC 32.3 L RDW 16.4 H Plt Count 272 MPV 7.6 Neut % (Auto) 78.9 H Lymph % (Auto) 8.2 L [place] % (Auto) 12.5 H Eos % (Auto) 0.2 Baso % (Auto) 0.2 Neut # (Auto) 7.6 H Lymph # (Auto) 0.8 L [place] # (Auto) 1.2 H Eos # (Auto) 0.0 Baso # (Auto) 0.0 Neutrophils % (Manual) 75 Band Neutrophils % 2 Lymphocytes % (Manual) 12 L Monocytes % (Manual) 11 H Platelet Estimate Normal Large Platelets Present Polychromasia Slight Hypochromasia (manual) Slight Poikilocytosis (manual Slight Anisocytosis (manual) Slight Ovalocytes Slight Sodium 137 Potassium 5.7 H Chloride 104 Carbon Dioxide 23 Anion Gap 15 BUN 27 H Creatinine 2.0 H Est GFR ( Amer) 44 Est GFR (Non-Af Amer) 36 POC Glucose (mg/dL) 183 H Random Glucose 150 H Calcium 9.3 Phosphorus 3.2 Magnesium 3.0 H Total Bilirubin 0.5 AST 30 ALT 28 Alkaline Phosphatase 57 Total Creatine Kinase 377 H CK-MB (Mass) 3.71 H Troponin I 0.0310 Total Protein 6.6 Albumin 3.7 Globulin 2.9 Albumin/Globulin Ratio 1.3 Assessment & Plan - Date & Time Date: 07/20/18 (I have seen and examined the patient. I agree with the findings and plan of care as documented by Dr. Garcia. Patient with hypotension. Transfer to tele. IVF bolus. Monitor BP and heart rate closely. Hold BP meds. History of CAD and diabetes. Continue home meds except BP meds. Monitor for acute changes.) Time: 06:23 Attending/Attestation - Attestation I have personally seen and examined this patient.: Yes I have fully participated in the care of the patient.: Yes I have reviewed all pertinent clinical information: Yes
[2018-07-19] MEDS: (Lantus) Insulin Glargine, Recombinant SC SCH (22:43)
[2018-07-19 23:05] LABS: BASO % 0.2 % (0.0-2.0); EOS % 0.2 % (0.0-4.0); HEMOGLOBIN 10.5 g/dL (12.0-18.0); LYMPH # 0.8 K/uL (1.0-4.3); LYMPH % 8.2 % (20.0-40.0); MEAN CELL VOLUME 80.2 fL (80.0-94.0); MEAN CORPUSCULAR HEMOGLOBIN 25.9 pg (27.0-31.0); MEAN CORPUSCULAR HGB CONC 32.3 g/dL (33.0-37.0); MEAN PLATELET VOLUME 7.6 fL (7.2-11.7); MONO # 1.2 K/uL (0.0-0.8); MONO % 12.5 % (0.0-10.0); NEUT # 7.6 K/uL (1.8-7.0); NEUT % 78.9 % (50.0-75.0); PLATELET COUNT 272 K/uL (130-400); RBC 4.05 Mil/uL (4.40-5.90); RED CELL DISTRIBUTION WIDTH 16.4 % (11.5-14.5); WHITE BLOOD COUNT 9.7 K/uL (4.8-10.8)
[2018-07-19 23:26] LABS: BANDS 2 % (0-2); LYMPHOCYTE 12 % (20-40); MONOCYTE 11 % (0-10); NEUTROPHIL 75 % (50-75); TOTAL CELLS COUNTED 100
[2018-07-19 23:27] LABS: ANISOCYTOSIS SLIGHT; PLATELET ESTIMATE NORMAL (NORMAL)
[2018-07-19 23:28] LABS: HYPOCHROMIC SLIGHT; POLYCHROMIC SLIGHT
[2018-07-19 23:29] LABS: LARGE PLATELETS PRESENT; OVALOCYTES SLIGHT; POIKILOCYTOSIS SLIGHT
[2018-07-19 23:55] LABS: ALB/GLOB RATIO 1.3 (1.0-2.1); ALBUMIN 3.7 g/dL (3.5-5.0); CALCIUM 9.3 mg/dl (8.6-10.4)
[2018-07-20 00:05] LABS: CK-MB 3.71 ng/mL (0.0-3.38); TROPONIN I 0.031 ng/mL (0.00-0.120)
--- NOTE | 2018-07-20 00:06 | PCM.PYCHPN ---
Psychiatric Progress Note - Psychiatric Progress Note Patient seen today, length of contact: 16 min Patient Chief Complaint: "I still hear voices telling me to hurt myself" Problems Identified/Issues Discussed: The pt is seen, chart reviewed, case is discussed with staff. The pt is compliant with medications and reports no side-effects. Symptoms are improving but needs more time to stabilize and to avoid relapse. Pt attends groups and activities. Support given, psycho-education provided. After care discussed. Patient reports that he is still hearing voices telling him to hurt himself and that he is not good. Patient denies any plan, and reports ignoring the voices. Patient reports that he had diarrhea since yesterday after taking a stool softener. He reports feeling tired, and that he does not have a good appetite today. As per primary nurse, his vitals have been stable, will continue to monitor. Medication Change: No (meds change daily) Medical Record Reviewed: Yes Mental Status Examination - Cognitive Function Orientation: Person, Place, Situation, Time Memory: Intact Attention: WNL Concentration: Poor Association: WNL Fund of Knowledge: WNL - Mood Mood: Depressed, Anxious - Affect Affect: Constricted - Speech Speech: Appropriate - Formal Thought Process Formal Thought Process: Delusions, Paranoia, Circumstantial - Suicidal Ideation Suicidal Ideation: No - Homicidal Ideation Homicidal Ideation: No Goal/Treatment Plan - Goal/Treatment Plan Need for Continued Stay: Severe depression anxiety, Discharge may exacerbated symptoms, Severe functional impairment Progress Toward Problem(s) and Goals/Treatment Plan: Continue medications Support and psychoeducation daily Attend groups and activities daily Individual therapy After care planning by TEJ and the team
--- NOTE | 2018-07-20 07:54 | CP.PCM.PN ---
Subjective - Date & Time of Evaluation Date of Evaluation: 07/20/18 Time of Evaluation: 07:53 - Subjective Subjective: PGY-1 Mireya Cazares D.O. Medicine progress note for Dr. Carbajal's service: Patient was seen and examined this morning. Objective - Vital Signs/Intake and Output Vital Signs (last 24 hours): Temp Pulse Resp BP Pulse Ox 98.1 F 84 20 111/55 L 97 07/20/18 07:30 07/20/18 07:30 07/20/18 07:30 07/20/18 07:30 07/20/18 07:30 Intake and Output: 07/20/18 07/20/18 06:59 18:59 Intake Total 120 Balance 120 - Medications Medications: Current Medications Amlodipine Besylate (Norvasc) 5 mg PO DAILY [facility] Last Admin: 07/19/18 09:17 Dose: 5 mg Aspirin (Ecotrin) 81 mg PO DAILY [facility] Last Admin: 07/19/18 09:18 Dose: 81 mg Buprenorphine HCl (Subutex) 2 mg SL DAILY [facility]; Taper Stop: 07/20/18 09:59 Last Admin: 07/19/18 09:17 Dose: 2 mg Clopidogrel Bisulfate (Plavix) 75 mg PO DAILY [facility] Last Admin: 07/19/18 09:18 Dose: 75 mg Escitalopram Oxalate (Lexapro) 10 mg PO DAILY [facility] Last Admin: 07/19/18 09:17 Dose: 10 mg Famotidine (Pepcid) 20 mg PO BID [facility] Last Admin: 07/19/18 17:23 Dose: 20 mg Ibuprofen (Motrin Tab) 600 mg PO Q8 PRN PRN Reason: Pain, moderate (4-7) Last Admin: 07/19/18 09:17 Dose: 600 mg Insulin Aspart (Novolog) 20 unit SC AC [facility] Last Admin: 07/19/18 17:20 Dose: 20 units Insulin Glargine (Lantus) 45 unit SC HS [facility] Last Admin: 07/19/18 22:43 Dose: 45 units Lisinopril (Zestril) 10 mg PO DAILY [facility] Last Admin: 07/19/18 09:18 Dose: 10 mg Risperidone (Risperdal Tab) 2 mg PO BID [facility] Last Admin: 07/19/18 17:23 Dose: 2 mg Rosuvastatin Calcium (Crestor) 20 mg PO HS [facility] Last Admin: 07/19/18 22:42 Dose: 20 mg Trazodone HCl (Desyrel) 100 mg PO HS PRN PRN Reason: Insomnia Last Admin: 07/18/18 21:18 Dose: 100 mg - Labs Labs: 07/19/18 22:55 07/19/18 22:55 Assessment and Plan - Assessment and Plan (Free Text) Plan: Ppx: VTE: GI: Diet: Code status: full code Dispo: Case discussed with attending, Dr. Carbajal.
[2018-07-20] MEDS: (Novolog) Insulin Aspart, Recombinant 100 u/ml 10 ml vial SC SCH ×6 (08:05→22:18)
[2018-07-20 08:56] LABS: BASO % 0.2 % (0.0-2.0); EOS # 0.1 K/uL (0.0-0.7); EOS % 0.8 % (0.0-4.0); HEMOGLOBIN 10.2 g/dL (12.0-18.0); LYMPH # 0.9 K/uL (1.0-4.3); LYMPH % 11.4 % (20.0-40.0); MEAN CELL VOLUME 80.8 fL (80.0-94.0); MEAN CORPUSCULAR HEMOGLOBIN 26.5 pg (27.0-31.0); MEAN CORPUSCULAR HGB CONC 32.8 g/dL (33.0-37.0); MEAN PLATELET VOLUME 7.8 fL (7.2-11.7); MONO % 12.8 % (0.0-10.0); NEUT # 5.8 K/uL (1.8-7.0); NEUT % 74.8 % (50.0-75.0); RBC 3.85 Mil/uL (4.40-5.90); RED CELL DISTRIBUTION WIDTH 16.7 % (11.5-14.5); WHITE BLOOD COUNT 7.8 K/uL (4.8-10.8)
[2018-07-20 09:12] LABS: ALB/GLOB RATIO 1.4 (1.0-2.1); ALBUMIN 3.8 g/dL (3.5-5.0); CALCIUM 8.7 mg/dl (8.6-10.4)
[2018-07-20] MEDS: Sodium Chloride 0.9% 1,000 ML IV SCH ×2 (10:01→20:19)
--- NOTE | 2018-07-20 11:40 | CP.PCM.PN ---
Subjective - Date & Time of Evaluation Date of Evaluation: 07/20/18 Time of Evaluation: 11:30 - Subjective Subjective: Medical attending note Patient seen at bedside patient reports he did have abrupt blood pressure last night. Patient prior to the event noted no chest pain no palpitations noted that he is being given the medication to allow him to use the bathroom but still feels a little bit uneasy. At bedside patient reports he feels dizziness denies chest pain denies palpitations denies headache reports uneasiness in the belly denies urinary complaints before he is urinating. Patient was transferred from the psychiatric unit to the telemetry floor overnight. Patient reports he does have a history of CAD with stents as well as a pacemaker placed at [facility] he is seen by Kenton gAuilera but does not come to this hospital at this time. When I asked the patient about his pacemaker being checked interrogated or battery replaced he reports that the settings have not been done in quite some time. He does report that he is compliant on his medications. I did consult for cardio to evaluate the patient in light of hypertension given his cardiac risk as well as the fact that we know if there is any possible arrhythmia prior to the hypotension overnight. As well as I did place a consult for nephrology given concern that the low BP caused acute renal failure and/or ATN depending. Objective - Vital Signs/Intake and Output Vital Signs (last 24 hours): Temp Pulse Resp BP Pulse Ox 98.1 F 84 20 111/55 L 97 07/20/18 07:30 07/20/18 08:07 07/20/18 07:30 07/20/18 07:30 07/20/18 07:30 Intake and Output: 07/20/18 07/20/18 06:59 18:59 Intake Total 120 Balance 120 - Medications Medications: Current Medications Amlodipine Besylate (Norvasc) 5 mg PO DAILY [facility] Last Admin: 07/19/18 09:17 Dose: 5 mg Aspirin (Ecotrin) 81 mg PO DAILY [facility] Last Admin: 07/20/18 09:34 Dose: 81 mg Clopidogrel Bisulfate (Plavix) 75 mg PO DAILY [facility] Last Admin: 07/20/18 09:34 Dose: 75 mg Escitalopram Oxalate (Lexapro) 10 mg PO DAILY [facility] Last Admin: 07/20/18 09:34 Dose: 10 mg Famotidine (Pepcid) 20 mg PO BID [facility] Last Admin: 07/20/18 09:34 Dose: 20 mg Sodium Chloride (Sodium Chloride 0.9%) 1,000 mls @ 100 mls/hr IV .Q10H [facility] Last Admin: 07/20/18 10:01 Dose: 100 mls/hr Insulin Aspart (Novolog) 20 unit SC AC [facility] Last Admin: 07/20/18 11:31 Dose: 20 units Insulin Glargine (Lantus) 45 unit SC HS [facility] Last Admin: 07/19/18 22:43 Dose: 45 units Lisinopril (Zestril) 10 mg PO DAILY [facility] Last Admin: 07/19/18 09:18 Dose: 10 mg Risperidone (Risperdal Tab) 2 mg PO BID [facility] Last Admin: 07/20/18 09:34 Dose: 2 mg Rosuvastatin Calcium (Crestor) 20 mg PO HS [facility] Last Admin: 07/19/18 22:42 Dose: 20 mg Trazodone HCl (Desyrel) 100 mg PO HS PRN PRN Reason: Insomnia Last Admin: 07/18/18 21:18 Dose: 100 mg - Labs Labs: 07/20/18 08:40 07/20/18 08:40 - Constitutional Appears: Non-toxic, No Acute Distress - Head Exam Head Exam: NORMAL INSPECTION - Eye Exam Eye Exam: EOMI - ENT Exam ENT Exam: Mucous Membranes Moist - Respiratory Exam Respiratory Exam: Clear to Ausculation Bilateral, NORMAL BREATHING PATTERN. absent: Rales, Rhonchi, Wheezes - Cardiovascular Exam Cardiovascular Exam: REGULAR RHYTHM, +S1, +S2 - GI/Abdominal Exam GI & Abdominal Exam: Soft, Normal Bowel Sounds. absent: Distended, Firm, Guarding, Rigid, Tenderness, Rebound - Extremities Exam Extremities Exam: absent: Joint Swelling, Pedal Edema, Tenderness - Neurological Exam Neurological Exam: Alert, Awake, Oriented x3 - Psychiatric Exam Psychiatric exam: Normal Affect, Normal Mood - Skin Skin Exam: Dry, Intact, Normal Color, Warm Assessment and Plan (1) CAD (coronary artery disease) Status: Chronic (2) Diabetes mellitus Status: Chronic (3) Dyslipidemia Status: Chronic (4) HTN (hypertension) Status: Chronic (5) Obese Status: Chronic (6) Hypotension Status: Acute (7) Prophylactic measure Status: Acute Attending/Attestation - Attestation I have personally seen and examined this patient.: Yes I have fully participated in the care of the patient.: Yes I have reviewed all pertinent clinical information, including history, physical exam and plan: Yes Notes (Text): 1. Hypotension Assessment/Plan * Medicine was consulted for hypotension while he was on the psychiatric unit; he was transferred out overnight to the telemetry floor * Obtain cardiology and nephrology consults * Echocardiogram * continue to monitor on telemetry 2. History of CAD with stents With Pacemaker Assessment/Plan * Patient's banking officer is Kenton Aguilera who does not come here; reports prior cath and pacemaker placed in [facility] in 2009 * Will consult Dr. Layne, cardiology * Will need to obtain reports from Dr. Bermudez regarding prior cath and if pacemaker vs dual; will need to check if patient had arrhytmia prior to blood pressure drop * Aspirin 81mg PO daily * Plavix 75mg PO daily * Norvasc 5mg PO daily * Hold Lisinopril 10mg PO daily given ARF and hyperkalemia * check a1c, lipid disorder, probnp, tsh/free T4 * troponin negative 3. Acute Renal Failure Assessment/Plan * Hypoperfusion given low BP versus hypovoluemia? * Will obtain Nephrology consult (Dr. Trujillo) * Patient in psych given Magnesium Hydroxide 30gm for bowel movment 07/19/18, was previously on NSAID which is discontinued; held lisinopril given persistent hypekalemia (no cardiac complaints no apparent EKG change) * Monitor urine output * Check UA * Note high magnesium, high potassium and trend BUN/Cr * Contributing symptoms: hypertension, diabetes 4. History of Diabetes Assessment/Plan * a1c in AM * Hypoglycemic Protocol * Lipid panel in AM * Aspirin 81mg PO daily * Crestor 20mg PoqHS * Regmient: * Novolog 20 units subqAC * Lantus 45 units subHS * Will add Novolog sliding scale (low dose) * Accuchecks QACHS 5. History of Hypertension Assessment/Plan * Norvasc and Lisinopril were held * Patient is currently on IV fluids given hypotension noted 07/19/18 6. Elevated Magnesium Assessment/Plan * Continue to monitor on telemtry and blood work 7. Hyperkalemia Assessment/Plan * held Lisinopril * denies cardiac complaints; and continue to monitor telemetry * Monitor K and Mg2+ 8. Cocaine Use Disorder Assessment/Plan * NO UDS performed prior * Ordered US to rule out cocaine in the system contributing to BP drop 9. Schizoaffective Disorder Depression Assessment/Plan * Management per psych * Risperdal 2mg PO BID * Trazodone 100mg PO HS PRN insomnia * Lexapro 10mg PO daily 10. Arthiritis Assessment/Plan * NSAID d/c per nephrology given ARF 11. Known history of GERD Assessment/Plan * Protonix 40mg PO daily 12. Constipation Assessment/Plan * Patient while on psych floor 07/19/18--received magnesium * appears to have resolved (had multiple bowel movements on 07/19/18 note) 13. Prophylactic measure * lovenox 30mg subq daily * d/c pepcid-->protonix 40mg Po daily * IV fluids * PT/OT eval
[2018-07-20 12:06] LABS: CK-MB 3.18 ng/mL (0.0-3.38); TROPONIN I 0.031 ng/mL (0.00-0.120)
[2018-07-20] MEDS ORDERED: Glucagon Recombinant 1 mg Inj IM PRN (12:08)
[2018-07-20] MEDS ORDERED: Dextrose 50% SYRINGE Inj (50 ml) IVP PRN (12:08)
[2018-07-20 12:43] LABS: B-TYPE NATRIURETIC PEPTIDE 55.8 pg/mL (0-450)
[2018-07-20] MEDS: Enoxaparin 30 mg Syringe SC SCH (12:44)
[2018-07-20 14:26] LABS: BARBITURATES, UR NEGATIVE (NEGATIVE); BENZODIAZEPINES, UR NEGATIVE (NEGATIVE); CREATININE, RANDOM URINE 130.3 mg/dL; OPIATES, UR NEGATIVE (NEGATIVE); PHENCYCLIDINE, UR NEGATIVE (NEGATIVE)
[2018-07-20] MEDS: (Lantus) Insulin Glargine, Recombinant SC SCH (22:20)
[2018-07-21] MEDS: (Novolog) Insulin Aspart, Recombinant 100 u/ml 10 ml vial SC SCH ×7 (07:41→21:24)
[2018-07-21 08:56] LABS: BASO % 0.3 % (0.0-2.0); EOS # 0.2 K/uL (0.0-0.7); EOS % 3.4 % (0.0-4.0); LYMPH # 1.3 K/uL (1.0-4.3); LYMPH % 23.7 % (20.0-40.0); MEAN CELL VOLUME 80.7 fL (80.0-94.0); MEAN CORPUSCULAR HEMOGLOBIN 26.1 pg (27.0-31.0); MEAN CORPUSCULAR HGB CONC 32.4 g/dL (33.0-37.0); MEAN PLATELET VOLUME 7.6 fL (7.2-11.7); MONO # 0.7 K/uL (0.0-0.8); NEUT # 3.2 K/uL (1.8-7.0); NEUT % 59.6 % (50.0-75.0); RBC 3.82 Mil/uL (4.40-5.90); RED CELL DISTRIBUTION WIDTH 16.8 % (11.5-14.5); WHITE BLOOD COUNT 5.4 K/uL (4.8-10.8)
[2018-07-21 09:17] LABS: ALB/GLOB RATIO 1.3 (1.0-2.1); ALBUMIN 3.6 g/dL (3.5-5.0); ALT/SGPT 30 U/L (21-72); AST/SGOT 25 U/L (17-59); BLOOD UREA NITROGEN 16 mg/dL (9-20); CALCIUM 8.5 mg/dl (8.6-10.4); GFR NON-AFRICAN AMERICAN > 60; HDL CHOLESTEROL 29 mg/dL (30-70)
[2018-07-21 09:25] LABS: LDL CHOLESTEROL 80 mg/dL (0-129)
--- NOTE | 2018-07-21 09:26 | CP.PCM.CON ---
History of Present Illness - History of Present Illness History of Present Illness: Consultation for evaluation of CAD and hypotension HPI: 47-year-old male who was admitted to [facility] with depression she is affective disorder and suicidal paranoid behavior where he was having auditory hallucinations which were telling him to have kill himself by overtake closing on his antihypertensive medications there is wrong documentation in the chart of him having coronary artery disease and stents he did have a cardiac catheterization back in January 24, 2017 at [facility], [place] by Dr. Avalos which showed nonobstructive coronary artery disease with patent stent in LCx currently he is on dual antiplatelet therapy I am not sure the rationale for that. He was on the psych floor which he was noted to be hypotensive and was subsequently transferred over to the medical floor. Apparently patient was constipated and received prune juice and subsequently developed multiple large bowel movements patient had subsequently become hypotensive and nauseous and became diaphoretic and was subsequently transferred over to the medical floor he does have a past history of cocaine use disorder diabetes and arthritis. Past surgical history significant for some kind of quadriceps surgery I am not sure exactly what family history nonsignificant medications as per MAR allergies no known drug allergies. He does have a dual-chamber pacemaker implant date and rationale is not clear based on review of the medical records. Review of Systems - Review of Systems Systems not reviewed;Unavailable: Acuity of Condition - Constitutional Constitutional: As Per HPI - EENT Eyes: As Per HPI Ears: As Per HPI Nose/Mouth/Throat: As Per HPI - Cardiovascular Cardiovascular: As Per HPI - Respiratory Respiratory: As Per HPI - Gastrointestinal Gastrointestinal: As Per HPI - Genitourinary Genitourinary: As Per HPI - Reproductive: Male Reproductive:Male: As Per HPI - Musculoskeletal Musculoskeletal: As Per HPI - Integumentary Integumentary: As Per HPI - Neurological Neurological: As Per HPI - Psychiatric Psychiatric: As Per HPI - Endocrine Endocrine: As Per HPI - Hematologic/Lymphatic Hematologic: As Per HPI Past Patient History - Infectious Disease Hx of Infectious Diseases: None - Tetanus Immunizations Tetanus Immunization: Unknown - Past Medical History & Family History Past Medical History?: Yes - Past Social History Smoking Status: Light Smoker < 10 Cigarettes Daily - CARDIAC Hx Congestive Heart Failure: Yes Hx Hypertension: Yes - PULMONARY Hx Asthma: Yes - NEUROLOGICAL HX Cerebrovascular Accident: No Hx Seizures: No - HEENT Hx HEENT Problems: No - RENAL Hx Chronic Kidney Disease: No - ENDOCRINE/METABOLIC Hx Endocrine Disorders: Yes Hx Diabetes Mellitus Type 1: Yes - HEMATOLOGICAL/ONCOLOGICAL Hx Anemia: Yes - INTEGUMENTARY Hx Dermatological Problems: No (TATOOS) - MUSCULOSKELETAL/RHEUMATOLOGICAL Hx Arthritis: Yes - GASTROINTESTINAL Hx Gastritis: Yes - GENITOURINARY/GYNECOLOGICAL Hx Sexually Transmitted Disorders: No - PSYCHIATRIC Hx Substance Use: Yes - SURGICAL HISTORY Hx Coronary Stent: Yes (2) - ANESTHESIA Hx Anesthesia: Yes Hx Anesthesia Reactions: No Hx Malignant Hyperthermia: No Meds Home Medications: Home Medication List Medication Instructions Recorded Confirmed Type Albuterol HFA [Ventolin HFA 90 1 puff INH RQ6 PRN 30 Days inhaler 07/21/18 Rx mcg/actuation (8 g)] Aspirin [Ecotrin] 81 mg PO DAILY #30 tablet. 07/21/18 Rx Escitalopram [Lexapro] 10 mg PO DAILY tab 07/21/18 Rx Fluticasone/Vilanterol 100/25 1 puff INH RQD 30 Days puff 07/21/18 Rx [Breo Ellipta 100-25 MCG INH] Ibuprofen [Motrin Tab] 600 mg PO Q8 PRN tab 07/21/18 Rx Insulin Aspart, Recombinant 0 unit SC ACHS unit 07/21/18 Rx [Novolog] Insulin Aspart, Recombinant 20 unit SC AC 30 Days unit 07/21/18 Rx [Novolog] Insulin Glargine, Recombina 45 unit SC HS 30 Days unit 07/21/18 Rx [Lantus] Lisinopril [Zestril] 10 mg PO DAILY #30 tab 07/21/18 Rx Rosuvastatin Calcium [Crestor] 20 mg PO HS #30 tab 07/21/18 Rx risperiDONE [RisperDAL Tab] 2 mg PO BID tab 07/21/18 Rx traZODone [Desyrel] 50 mg PO HS PRN tab 07/21/18 Rx Allergies/Adverse Reactions: Allergies Allergy/AdvReac Type Severity Reaction Status Date / Time No Known Allergies Allergy Verified 03/25/18 21:52 - Medications Medications: Current Medications Amlodipine Besylate (Norvasc) 5 mg PO DAILY [facility] Last Admin: 07/19/18 09:17 Dose: 5 mg Aspirin (Ecotrin) 81 mg PO DAILY [facility] Last Admin: 07/20/18 09:34 Dose: 81 mg Clopidogrel Bisulfate (Plavix) 75 mg PO DAILY [facility] Last Admin: 07/20/18 09:34 Dose: 75 mg Dextrose (Dextrose 50% Inj) 0 ml IVP .STAT PRN; Protocol PRN Reason: Hypoglycemia Protocol Dextrose (Glutose 15) 0 gm PO .ONCE PRN; Protocol PRN Reason: Hypoglycemia Protocol Enoxaparin Sodium (Lovenox) 30 mg SC DAILY [facility] Last Admin: 07/20/18 12:44 Dose: 30 mg Escitalopram Oxalate (Lexapro) 10 mg PO DAILY [facility] Last Admin: 07/20/18 09:34 Dose: 10 mg Famotidine (Pepcid) 20 mg PO BID [facility] Last Admin: 07/20/18 17:31 Dose: 20 mg Glucagon (Glucagen Diagnostic Kit) 0 mg IM .STAT PRN; Protocol PRN Reason: Hypoglycemia Protocol Sodium Chloride (Sodium Chloride 0.9%) 1,000 mls @ 100 mls/hr IV .Q10H [facility] Last Admin: 07/20/18 20:19 Dose: Not Given Dextrose (Dextrose 5% In Water 1000 Ml) 1,000 mls @ 0 mls/hr IV .Q0M PRN; Protocol PRN Reason: Hypoglycemia Protocol Insulin Aspart (Novolog) 20 unit SC AC [facility] Last Admin: 07/21/18 07:41 Dose: Not Given Insulin Aspart (Novolog) 0 unit SC [facility]; Protocol Last Admin: 07/21/18 07:42 Dose: Not Given Insulin Glargine (Lantus) 45 unit SC [facility] Last Admin: 07/20/18 22:20 Dose: Not Given Lisinopril (Zestril) 10 mg PO DAILY [facility] Last Admin: 07/19/18 09:18 Dose: 10 mg Risperidone (Risperdal Tab) 2 mg PO BID [facility] Last Admin: 07/20/18 17:31 Dose: 2 mg Rosuvastatin Calcium (Crestor) 20 mg PO HS [facility] Last Admin: 07/20/18 22:25 Dose: 20 mg Trazodone HCl (Desyrel) 100 mg PO HS PRN PRN Reason: Insomnia Last Admin: 07/18/18 21:18 Dose: 100 mg Physical Exam - Constitutional Appears: Well - Head Exam Head Exam: ATRAUMATIC, NORMAL INSPECTION, NORMOCEPHALIC - Eye Exam Eye Exam: EOMI, Normal appearance, PERRL Pupil Exam: NORMAL ACCOMODATION, PERRL - ENT Exam ENT Exam: Mucous Membranes Dry, Normal Exam - Neck Exam Neck exam: Positive for: Normal Inspection - Respiratory Exam Respiratory Exam: Clear to Auscultation Bilateral, NORMAL BREATHING PATTERN - Cardiovascular Exam Cardiovascular Exam: REGULAR RHYTHM, +S1, +S2, Systolic Murmur - GI/Abdominal Exam GI & Abdominal Exam: Normal Bowel Sounds, Soft. absent: Tenderness - Extremities Exam Extremities exam: Positive for: normal inspection - Back Exam Back exam: NORMAL INSPECTION - Neurological Exam Neurological exam: Alert, CN II-XII Intact, Normal Gait, Oriented x3, Reflexes Normal - Psychiatric Exam Psychiatric exam: Normal Affect, Normal Mood - Skin Skin Exam: Dry, Intact, Normal Color, Warm Results - Vital Signs Recent Vital Signs: Last Vital Signs Temp 97.7 F 07/21/18 07:00 Pulse 84 07/21/18 07:08 Resp 20 07/21/18 07:00 BP 105/60 07/21/18 07:00 Pulse Ox 95 07/21/18 07:00 - Labs Result Diagrams: 07/22/18 13:41 07/22/18 13:28 Labs: Laboratory Results - last 24 hr 07/20/18 07/20/18 07/20/18 08:40 11:08 13:30 WBC RBC Hgb Hct MCV MCH MCHC RDW Plt Count MPV Neut % (Auto) Lymph % (Auto) Walsh % (Auto) Eos % (Auto) Baso % (Auto) Neut # (Auto) Lymph # (Auto) Walsh # (Auto) Eos # (Auto) Baso # (Auto) Sodium 135 Potassium 5.4 H Chloride 101 Carbon Dioxide 23 Anion Gap 16 BUN 31 H Creatinine 1.7 H Est GFR ( Amer) 53 Est GFR (Non-Af Amer) 44 POC Glucose (mg/dL) 156 H Random Glucose 130 H Hemoglobin A1c Calcium 8.7 Phosphorus 4.0 Magnesium 2.9 H Total Bilirubin 0.5 AST 34 ALT 28 Alkaline Phosphatase 52 Total Creatine Kinase 307 H CK-MB (Mass) 3.18 Troponin I 0.0310 NT-Pro-B Natriuret Pep 55.8 Total Protein 6.6 Albumin 3.8 Globulin 2.8 Albumin/Globulin Ratio 1.4 Triglycerides Cholesterol HDL Cholesterol Ur Random Creatinine 130.3 Ur Random Sodium 85 Ur Random Potassium 42.3 Urine Opiates Screen Negative Urine Methadone Screen Negative Ur Barbiturates Screen Negative Ur Phencyclidine Scrn Negative Ur Amphetamines Screen Negative U Benzodiazepines Scrn Negative U Oth Cocaine Metabols Positive H U Cannabinoids Screen Negative 07/20/18 07/20/18 07/21/18 17:03 20:55 01:47 WBC RBC Hgb Hct MCV MCH MCHC RDW Plt Count MPV Neut % (Auto) Lymph % (Auto) Walsh % (Auto) Eos % (Auto) Baso % (Auto) Neut # (Auto) Lymph # (Auto) Walsh # (Auto) Eos # (Auto) Baso # (Auto) Sodium Potassium Chloride Carbon Dioxide Anion Gap BUN Creatinine Est GFR ( Amer) Est GFR (Non-Af Amer) POC Glucose (mg/dL) 100 86 118 H Random Glucose Hemoglobin A1c Calcium Phosphorus Magnesium Total Bilirubin AST ALT Alkaline Phosphatase Total Creatine Kinase CK-MB (Mass) Troponin I NT-Pro-B Natriuret Pep Total Protein Albumin Globulin Albumin/Globulin Ratio Triglycerides Cholesterol HDL Cholesterol Ur Random Creatinine Ur Random Sodium Ur Random Potassium Urine Opiates Screen Urine Methadone Screen Ur Barbiturates Screen Ur Phencyclidine Scrn Ur Amphetamines Screen U Benzodiazepines Scrn U Oth Cocaine Metabols U Cannabinoids Screen 07/21/18 07/21/18 07/21/18 06:45 08:42 08:42 WBC RBC Hgb Hct MCV MCH MCHC RDW Plt Count MPV Neut % (Auto) Lymph % (Auto) Walsh % (Auto) Eos % (Auto) Baso % (Auto) Neut # (Auto) Lymph # (Auto) Walsh # (Auto) Eos # (Auto) Baso # (Auto) Sodium 139 Potassium 4.3 Chloride 103 Carbon Dioxide 27 Anion Gap 13 BUN 16 Creatinine 1.1 Est GFR ( Amer) > 60 Est GFR (Non-Af Amer) > 60 POC Glucose (mg/dL) 105 Random Glucose 130 H Hemoglobin A1c 8.0 H D Calcium 8.5 L Phosphorus 3.5 Magnesium 2.1 Total Bilirubin 0.6 AST 25 ALT 30 Alkaline Phosphatase 52 Total Creatine Kinase CK-MB (Mass) Troponin I NT-Pro-B Natriuret Pep Total Protein 6.3 Albumin 3.6 Globulin 2.7 Albumin/Globulin Ratio 1.3 Triglycerides 126 D Cholesterol 128 HDL Cholesterol 29 L Ur Random Creatinine Ur Random Sodium Ur Random Potassium Urine Opiates Screen Urine Methadone Screen Ur Barbiturates Screen Ur Phencyclidine Scrn Ur Amphetamines Screen U Benzodiazepines Scrn U Oth Cocaine Metabols U Cannabinoids Screen 07/21/18 08:42 WBC 5.4 RBC 3.82 L Hgb 10.0 L Hct 30.9 L MCV 80.7 MCH 26.1 L MCHC 32.4 L RDW 16.8 H Plt Count 237 MPV 7.6 Neut % (Auto) 59.6 Lymph % (Auto) 23.7 Walsh % (Auto) 13.0 H Eos % (Auto) 3.4 Baso % (Auto) 0.3 Neut # (Auto) 3.2 Lymph # (Auto) 1.3 Walsh # (Auto) 0.7 Eos # (Auto) 0.2 Baso # (Auto) 0.0 Sodium Potassium Chloride Carbon Dioxide Anion Gap BUN Creatinine Est GFR ( Amer) Est GFR (Non-Af Amer) POC Glucose (mg/dL) Random Glucose Hemoglobin A1c Calcium Phosphorus Magnesium Total Bilirubin AST ALT Alkaline Phosphatase Total Creatine Kinase CK-MB (Mass) Troponin I NT-Pro-B Natriuret Pep Total Protein Albumin Globulin Albumin/Globulin Ratio Triglycerides Cholesterol HDL Cholesterol Ur Random Creatinine Ur Random Sodium Ur Random Potassium Urine Opiates Screen Urine Methadone Screen Ur Barbiturates Screen Ur Phencyclidine Scrn Ur Amphetamines Screen U Benzodiazepines Scrn U Oth Cocaine Metabols U Cannabinoids Screen Assessment & Plan (1) Hypotension Assessment and Plan: etiology unclear ? preload dependency 2' to dehydration IVF hydration dc norvasc resume acei once bp stable for renal protection Status: Acute (2) CAD (coronary artery disease) Assessment and Plan: cath done on 01/23/17 showed non-obstructive CAD stents in Lcx patent on last cath stents x 2 in 2009 cont asa dc plavix Status: Acute (3) Hx of cardiac pacemaker Assessment and Plan: device interogation shows pm working fine Status: Acute (4) Cocaine abuse Assessment and Plan: no bb 2' to cocaine Status: Chronic Priority: Low (5) Diabetes mellitus Status: Chronic (6) Dyslipidemia Status: Chronic
[2018-07-21 09:33] LABS: B-TYPE NATRIURETIC PEPTIDE 42.5 pg/mL (0-450)
[2018-07-21] MEDS: Enoxaparin 30 mg Syringe SC SCH (09:41)
--- NOTE | 2018-07-21 13:32 | CP.PCM.DIS ---
<Mireya Cazares - Last Filed: 07/21/18 16:05> Provider - Provider Date of Admission: 07/15/18 19:11 Attending physician: Ryan Dykes MD Primary care physician: none Consults: 07/15/18 21:20 Social Work Referral Routine Comment: High chris score Physician Instructions: Reason For Exam: High chris score 07/19/18 20:42 Hospitalist Consult Routine Comment: Consulting Provider: Ten Dykes Consulting Physician: Ten Dykes Reason for Consult: Hypotension, complaints of dizziness, no appetite. 07/20/18 09:41 Nephrology Consult Routine Comment: Consulting Provider: Ronnie Saldana Consulting Physician: Ronnie Saldana Reason for Consult: MAKEDA 07/20/18 11:34 Cardiology Consult Routine Comment: Consulting Provider: Robert Layne Consulting Physician: Robert Layne Reason for Consult: hx of CAD, pacemaker (2009); response: hypotension 07/20/18 12:13 Psychiatry Consult Routine Comment: was transferred to the floor from [facility] 07/19 Consulting Provider: Matheus Vázquez Consulting Physician: Matheus Vázquez Reason for Consult: schizoaffective disorder 07/21/18 13:11 Diabetic Education Referral Routine Comment: Physician Instructions: Reason For Exam: poor compliance, insulin dependent diabetes Time Spent in preparation of Discharge (in minutes): 45 Diagnosis - Discharge Diagnosis (1) Hypotension Status: Resolved Priority: High (2) MAKEDA (acute kidney injury) Status: Resolved Priority: High (3) Non-occlusive coronary artery disease Status: Chronic Priority: High (4) Pacemaker Status: Chronic Priority: Medium (5) Schizophrenia Status: Chronic Priority: Medium (6) Cocaine use disorder Status: Chronic Priority: Medium (7) T2DM (type 2 diabetes mellitus) Status: Chronic Priority: Medium (8) COPD (chronic obstructive pulmonary disease) Status: Chronic Priority: Medium (9) Noncompliance Status: Chronic Priority: High (10) HBV (hepatitis B virus) infection Status: Chronic Priority: Low Hospital Course - Lab Results Lab Results: Most Recent Lab Values WBC 5.4 K/uL (4.8-10.8) 07/21/18 08:42 RBC 3.82 Mil/uL (4.40-5.90) L 07/21/18 08:42 Hgb 10.0 g/dL (12.0-18.0) L 07/21/18 08:42 Hct 30.9 % (35.0-51.0) L 07/21/18 08:42 MCV 80.7 fL (80.0-94.0) 07/21/18 08:42 MCH 26.1 pg (27.0-31.0) L 07/21/18 08:42 MCHC 32.4 g/dL (33.0-37.0) L 07/21/18 08:42 RDW 16.8 % (11.5-14.5) H 07/21/18 08:42 Plt Count 237 K/uL (130-400) 07/21/18 08:42 MPV 7.6 fL (7.2-11.7) 07/21/18 08:42 Neut % (Auto) 59.6 % (50.0-75.0) 07/21/18 08:42 Lymph % (Auto) 23.7 % (20.0-40.0) 07/21/18 08:42 Ellis % (Auto) 13.0 % (0.0-10.0) H 07/21/18 08:42 Eos % (Auto) 3.4 % (0.0-4.0) 07/21/18 08:42 Baso % (Auto) 0.3 % (0.0-2.0) 07/21/18 08:42 Neut # (Auto) 3.2 K/uL (1.8-7.0) 07/21/18 08:42 Lymph # (Auto) 1.3 K/uL (1.0-4.3) 07/21/18 08:42 Ellis # (Auto) 0.7 K/uL (0.0-0.8) 07/21/18 08:42 Eos # (Auto) 0.2 K/uL (0.0-0.7) 07/21/18 08:42 Baso # (Auto) 0.0 K/uL (0.0-0.2) 07/21/18 08:42 Neutrophils % (Manual) 75 % (50-75) 07/19/18 22:55 Band Neutrophils % 2 % (0-2) 07/19/18 22:55 Lymphocytes % (Manual) 12 % (20-40) L 07/19/18 22:55 Monocytes % (Manual) 11 % (0-10) H 07/19/18 22:55 Platelet Estimate Normal (NORMAL) 07/19/18 22:55 Large Platelets Present 07/19/18 22:55 Polychromasia Slight 07/19/18 22:55 Hypochromasia (manual) Slight 07/19/18 22:55 Poikilocytosis (manual Slight 07/19/18 22:55 Anisocytosis (manual) Slight 07/19/18 22:55 Ovalocytes Slight 07/19/18 22:55 Sodium 139 mmol/L (132-148) 07/21/18 08:42 Potassium 4.3 mmol/L (3.6-5.2) 07/21/18 08:42 Chloride 103 mmol/L (98-107) 07/21/18 08:42 Carbon Dioxide 27 mmol/L (22-30) 07/21/18 08:42 Anion Gap 13 (10-20) 07/21/18 08:42 BUN 16 mg/dL (9-20) 07/21/18 08:42 Creatinine 1.1 mg/dL (0.8-1.5) 07/21/18 08:42 Est GFR ( Amer) > 60 07/21/18 08:42 Est GFR (Non-Af Amer) > 60 07/21/18 08:42 POC Glucose (mg/dL) 132 mg/dL (65-110) H 07/21/18 11:13 Random Glucose 130 mg/dL (75-110) H 07/21/18 08:42 Hemoglobin A1c 8.0 % (4.2-6.5) H D 07/21/18 08:42 Calcium 8.5 mg/dl (8.6-10.4) L 07/21/18 08:42 Phosphorus 3.5 mg/dL (2.5-4.5) 07/21/18 08:42 Magnesium 2.1 mg/dL (1.6-2.3) 07/21/18 08:42 Total Bilirubin 0.6 mg/dL (0.2-1.3) 07/21/18 08:42 AST 25 U/L (17-59) 07/21/18 08:42 ALT 30 U/L (21-72) 07/21/18 08:42 Alkaline Phosphatase 52 U/L (38-126) 07/21/18 08:42 Total Creatine Kinase 307 U/L (55-170) H 07/20/18 08:40 CK-MB (Mass) 3.18 ng/mL (0.0-3.38) 07/20/18 08:40 Troponin I 0.0310 ng/mL (0.00-0.120) 07/20/18 08:40 NT-Pro-B Natriuret Pep 42.5 pg/mL (0-450) 07/21/18 08:42 Total Protein 6.3 g/dL (6.3-8.3) 07/21/18 08:42 Albumin 3.6 g/dL (3.5-5.0) 07/21/18 08:42 Globulin 2.7 gm/dL (2.2-3.9) 07/21/18 08:42 Albumin/Globulin Ratio 1.3 (1.0-2.1) 07/21/18 08:42 Triglycerides 126 mg/dL (0-149) D 07/21/18 08:42 Cholesterol 128 mg/dL (0-199) 07/21/18 08:42 LDL Cholesterol Direct 80 mg/dL (0-129) 07/21/18 08:42 HDL Cholesterol 29 mg/dL (30-70) L 07/21/18 08:42 Urine Color Yellow (YELLOW) 07/15/18 17:02 Urine Clarity Hazy (Clear) 07/15/18 17:02 Urine pH 5.0 (5.0-8.0) 07/15/18 17:02 Ur Specific [place] 1.020 (1.003-1.030) 07/15/18 17:02 Urine Protein Negative mg/dL (NEGATIVE) 07/15/18 17:02 Urine Glucose (UA) Normal mg/dL (Normal) 07/15/18 17:02 Urine Ketones Negative mg/dL (NEGATIVE) 07/15/18 17:02 Urine Blood Negative (NEGATIVE) 07/15/18 17:02 Urine Nitrate Negative (NEGATIVE) 07/15/18 17:02 Urine Bilirubin Negative (NEGATIVE) 07/15/18 17:02 Urine Urobilinogen Normal mg/dL (0.2-1.0) 07/15/18 17:02 Ur Leukocyte Esterase 1+ Eleazar/uL (Negative) H 07/15/18 17:02 Urine WBC (Auto) 20 /hpf (0-5) H 07/15/18 17:02 Urine RBC (Auto) 1 /hpf (0-3) 07/15/18 17:02 Ur Squamous Epith Cells 12 /hpf (0-5) H 07/15/18 17:02 Urine Bacteria Few (<OCC) H 07/15/18 17:02 Ur Random Creatinine 130.3 mg/dL 07/20/18 13:30 Ur Random Sodium 85 mmol/L 07/20/18 13:30 Ur Random Potassium 42.3 mmol/L 07/20/18 13:30 Urine Opiates Screen Negative (NEGATIVE) 07/20/18 13:30 Urine Methadone Screen Negative (NEGATIVE) 07/20/18 13:30 Ur Barbiturates Screen Negative (NEGATIVE) 07/20/18 13:30 Ur Phencyclidine Scrn Negative (NEGATIVE) 07/20/18 13:30 Ur Amphetamines Screen Negative (NEGATIVE) 07/20/18 13:30 U Benzodiazepines Scrn Negative (NEGATIVE) 07/20/18 13:30 U Oth Cocaine Metabols Positive (NEGATIVE) H 07/20/18 13:30 U Cannabinoids Screen Negative (NEGATIVE) 07/20/18 13:30 Alcohol, Quantitative < 10 mg/dl (0-10) 07/15/18 17:02 - Hospital Course Hospital Course: Patient is a 47 yo AA male with PMH of schizoaffective disorder, cocaine use disorder, HBV, CAD with stents, HTN, T2DM on insulin, and osteoarthrits admitted to psych unit for depression and command auditory hallucinations. Patient was constipated and received prune juice. Patient then proceeded to have multiple large nonbloody diarrheal bowel movements. Nurse checked his blood pressure after he became nauseated and became diaphoretic. Repeat blood pressures confirmed patient had hypotension, and he was transferred to medical floor. Admits to dizziness, diaphoresis, lightheadedness, and nausea. Denies fevers, chills, cp, sob, vomiting, constipation or diarrhea, and dysuria. Patient was given IVF and antihypertensives were held. Patient was also found to have an MAKEDA, presumably from dehydration/hypotension. Cardiology and nephrology were consulted. Patient's pacemaker was interrogated, and no adverse events were observed. Patient's MAKEDA resolved with IVF. He BP remained stable, and he was asymptomatic. Echo was done and result will be followed up. Patient was counseled multiple times on medication compliance and substance use cessation. Upon discharge, patient stated that he was still hearing voices, but they were improved. Psychiatry determined that he would benefit from more time in the psych unit. Patient was transferred back to psych unit without issue. Discharge Exam - Head Exam Head Exam: ATRAUMATIC, NORMAL INSPECTION, NORMOCEPHALIC - Eye Exam Eye Exam: EOMI, Normal appearance - ENT Exam ENT Exam: Mucous Membranes Moist - Neck Exam Neck exam: Full Rom, Normal Inspection - Respiratory Exam Respiratory Exam: Clear to PA & Lateral, NORMAL BREATHING PATTERN, UNREMARKABLE - Cardiovascular Exam Cardiovascular Exam: RRR, +S1, +S2 - GI/Abdominal Exam GI & Abdominal Exam: Normal Bowel Sounds, Soft, Unremarkable. absent: Distended, Tenderness Additional comments: obese - Extremities Exam Extremities exam: normal inspection, pedal pulses present - Back Exam Back exam: NORMAL INSPECTION - Neurological Exam Neurological exam: Alert, CN II-XII Intact, Normal Gait, Oriented x3 - Psychiatric Exam Psychiatric exam: Flat Affect - Skin Skin Exam: Dry, Normal Color, Warm Discharge Plan - Discharge Medications Prescriptions: Albuterol HFA [Ventolin HFA 90 mcg/actuation (8 g)] 1 puff INH RQ6 PRN 30 Days inhaler PRN Reason: Shortness Of Breath Aspirin [Ecotrin] 81 mg PO DAILY #30 tablet. Fluticasone/Vilanterol 100/25 [Breo Ellipta 100-25 MCG INH] 1 puff INH RQD 30 Days puff Insulin Aspart, Recombinant [Novolog] 20 unit SC AC 30 Days unit Insulin Glargine, Recombina [Lantus] 45 unit SC HS 30 Days unit Lisinopril [Zestril] 10 mg PO DAILY #30 tab Rosuvastatin Calcium [Crestor] 20 mg PO HS #30 tab - Follow Up Plan Condition: IMPROVED Disposition: DISCHARGE TO PSYCH HOSPITAL Patient education suggested?: Yes Instructions: Heart Healthy Diet, Heart Failure, Adult (DC), Coronary Heart Disease (DC), Low Blood Pressure (DC) Additional Instructions: Patient is medically stabilized and can be transferred back to the psychiatry unit for further management of his mental illness. Upon discharge, patient is to establish care with a primary care physician. He needs to have a primary medicine doctor to coordinate all of his medical care. Information for Dr. Makeda Fishman is provided. Call [phone] to schedule an appointment within 1 week of discharge. Patient was previously seen by gastroenterology, Dr. Son, for hepatitis B. Follow-up within 1 week of discharge. Patient was previously seen by cardiology, Dr. Aguilera, for cardiac disease and pacemaker. Follow-up within 1 week of discharge. The following are other specialists that patient must follow-up with. Dr. Fishman can help provide referrals. - Pulmonology- needs measurement of lung volumes for suspected diagnosis of COPD; needs sleep study for suspected diagnosis of obstructive sleep apnea - Ophthalmology- needs at least annual eye exams for diabetes - Podiatry- needs at least annual foot exams for diabetes - Psychiatry- needs medication management for schizophrenia Call Narcotic Anonymous for assistance with quitting cocaine use. [phone] Call the [employer] Quit line for assistance with quitting smoking. [phone] It is important to keep track of blood sugar measurements. Check blood sugar at least twice daily and bring paper long to doctors appointments. The following prescriptions are provided: Aspirin 81 mg daily (8 AM) Lisinopril 10 mg daily (8 AM) Rosuvastatin 20 mg at night (8 PM) Aspart insulin 20 units three times a day before each meal (8 AM, 2 PM, 8 PM) Lantus insulin 45 units at night (10 PM) Breo Ellipta 1 puff daily Albuterol 2 puff every 6 hours as needed for shortness of breath Additionally, take any psychiatric medications as prescribed by the psychiatrist upon discharge. Referrals: Makeda Fishman MD [Staff Provider] - Katharina Son MD [Medical Doctor] - <Ryan Dykes - Last Filed: 07/22/18 18:58> Provider - Provider Date of Admission: 07/15/18 19:11 Attending physician: Nolan Anthony Consults: 07/15/18 21:20 Social Work Referral Routine Comment: High chris score Physician Instructions: Reason For Exam: High chris score 07/19/18 20:42 Hospitalist Consult Routine Comment: Consulting Provider: Ten Dykes Consulting Physician: Ten Dykes Reason for Consult: Hypotension, complaints of dizziness, no appetite. 07/20/18 09:41 Nephrology Consult Routine Comment: Consulting Provider: Ronnie Saldana Consulting Physician: Ronnie Saldana Reason for Consult: MAKEDA 07/20/18 11:34 Cardiology Consult Routine Comment: Consulting Provider: Robert Layne Consulting Physician: Robert Layne Reason for Consult: hx of CAD, pacemaker (2009); response: hypotension 07/20/18 12:13 Psychiatry Consult Routine Comment: was transferred to the floor from psych 07/19 Consulting Provider: Matheus Vázquez Consulting Physician: Matheus Vázquez Reason for Consult: schizoaffective disorder 07/21/18 13:11 Diabetic Education Referral Routine Comment: Physician Instructions: Reason For Exam: poor compliance, insulin dependent diabetes Hospital Course - Lab Results Lab Results: Most Recent Lab Values WBC 5.0 K/uL (4.8-10.8) 07/22/18 13:41 RBC 3.57 Mil/uL (4.40-5.90) L 07/22/18 13:41 Hgb 9.4 g/dL (12.0-18.0) L 07/22/18 13:41 Hct 28.6 % (35.0-51.0) L 07/22/18 13:41 MCV 80.3 fL (80.0-94.0) 07/22/18 13:41 MCH 26.4 pg (27.0-31.0) L 07/22/18 13:41 MCHC 32.8 g/dL (33.0-37.0) L 07/22/18 13:41 RDW 16.5 % (11.5-14.5) H 07/22/18 13:41 Plt Count 222 K/uL (130-400) 07/22/18 13:41 MPV 7.4 fL (7.2-11.7) 07/22/18 13:41 Neut % (Auto) 72.6 % (50.0-75.0) 07/22/18 13:41 Lymph % (Auto) 16.8 % (20.0-40.0) L 07/22/18 13:41 Ellis % (Auto) 9.2 % (0.0-10.0) 07/22/18 13:41 Eos % (Auto) 1.0 % (0.0-4.0) 07/22/18 13:41 Baso % (Auto) 0.4 % (0.0-2.0) 07/22/18 13:41 Neut # (Auto) 3.6 K/uL (1.8-7.0) 07/22/18 13:41 Lymph # (Auto) 0.8 K/uL (1.0-4.3) L 07/22/18 13:41 Ellis # (Auto) 0.5 K/uL (0.0-0.8) 07/22/18 13:41 Eos # (Auto) 0.0 K/uL (0.0-0.7) 07/22/18 13:41 Baso # (Auto) 0.0 K/uL (0.0-0.2) 07/22/18 13:41 Neutrophils % (Manual) 75 % (50-75) 07/19/18 22:55 Band Neutrophils % 2 % (0-2) 07/19/18 22:55 Lymphocytes % (Manual) 12 % (20-40) L 07/19/18 22:55 Monocytes % (Manual) 11 % (0-10) H 07/19/18 22:55 Platelet Estimate Normal (NORMAL) 07/19/18 22:55 Large Platelets Present 07/19/18 22:55 Polychromasia Slight 07/19/18 22:55 Hypochromasia (manual) Slight 07/19/18 22:55 Poikilocytosis (manual Slight 07/19/18 22:55 Anisocytosis (manual) Slight 07/19/18 22:55 Ovalocytes Slight 07/19/18 22:55 Sodium 139 mmol/L (132-148) 07/22/18 13:28 Potassium 4.4 mmol/L (3.6-5.2) 07/22/18 13:28 Chloride 101 mmol/L (98-107) 07/22/18 13:28 Carbon Dioxide 26 mmol/L (22-30) 07/22/18 13:28 Anion Gap 16 (10-20) 07/22/18 13:28 BUN 11 mg/dL (9-20) 07/22/18 13:28 Creatinine 1.0 mg/dL (0.8-1.5) 07/22/18 13:28 Est GFR ( Amer) > 60 07/22/18 13:28 Est GFR (Non-Af Amer) > 60 07/22/18 13:28 POC Glucose (mg/dL) 155 mg/dL (65-110) H 07/22/18 15:58 Random Glucose 180 mg/dL (75-110) H D 07/22/18 13:28 Hemoglobin A1c 8.0 % (4.2-6.5) H D 07/21/18 08:42 Calcium 8.6 mg/dl (8.6-10.4) 07/22/18 13:28 Phosphorus 4.1 mg/dL (2.5-4.5) 07/22/18 06:23 Magnesium 1.9 mg/dL (1.6-2.3) 07/22/18 06:23 Total Bilirubin 0.4 mg/dL (0.2-1.3) 07/22/18 13:28 AST 34 U/L (17-59) 07/22/18 13:28 ALT 17 U/L (21-72) L D 07/22/18 13:28 Alkaline Phosphatase 47 U/L (38-126) 07/22/18 13:28 Total Creatine Kinase 307 U/L (55-170) H 07/20/18 08:40 CK-MB (Mass) 3.18 ng/mL (0.0-3.38) 07/20/18 08:40 Troponin I 0.0310 ng/mL (0.00-0.120) 07/20/18 08:40 NT-Pro-B Natriuret Pep 42.5 pg/mL (0-450) 07/21/18 08:42 Total Protein 6.1 g/dL (6.3-8.3) L 07/22/18 13:28 Albumin 3.6 g/dL (3.5-5.0) 07/22/18 13:28 Globulin 2.6 gm/dL (2.2-3.9) 07/22/18 13:28 Albumin/Globulin Ratio 1.4 (1.0-2.1) 07/22/18 13:28 Triglycerides 126 mg/dL (0-149) D 07/21/18 08:42 Cholesterol 128 mg/dL (0-199) 07/21/18 08:42 LDL Cholesterol Direct 80 mg/dL (0-129) 07/21/18 08:42 HDL Cholesterol 29 mg/dL (30-70) L 07/21/18 08:42 Urine Color Yellow (YELLOW) 07/15/18 17:02 Urine Clarity Hazy (Clear) 07/15/18 17:02 Urine pH 5.0 (5.0-8.0) 07/15/18 17:02 Ur Specific [place] 1.020 (1.003-1.030) 07/15/18 17:02 Urine Protein Negative mg/dL (NEGATIVE) 07/15/18 17:02 Urine Glucose (UA) Normal mg/dL (Normal) 07/15/18 17:02 Urine Ketones Negative mg/dL (NEGATIVE) 07/15/18 17:02 Urine Blood Negative (NEGATIVE) 07/15/18 17:02 Urine Nitrate Negative (NEGATIVE) 07/15/18 17:02 Urine Bilirubin Negative (NEGATIVE) 07/15/18 17:02 Urine Urobilinogen Normal mg/dL (0.2-1.0) 07/15/18 17:02 Ur Leukocyte Esterase 1+ Eleazar/uL (Negative) H 07/15/18 17:02 Urine WBC (Auto) 20 /hpf (0-5) H 07/15/18 17:02 Urine RBC (Auto) 1 /hpf (0-3) 07/15/18 17:02 Ur Squamous Epith Cells 12 /hpf (0-5) H 07/15/18 17:02 Urine Bacteria Few (<OCC) H 07/15/18 17:02 Ur Random Creatinine 130.3 mg/dL 07/20/18 13:30 Ur Random Sodium 85 mmol/L 07/20/18 13:30 Ur Random Potassium 42.3 mmol/L 07/20/18 13:30 Urine Opiates Screen Negative (NEGATIVE) 07/20/18 13:30 Urine Methadone Screen Negative (NEGATIVE) 07/20/18 13:30 Ur Barbiturates Screen Negative (NEGATIVE) 07/20/18 13:30 Ur Phencyclidine Scrn Negative (NEGATIVE) 07/20/18 13:30 Ur Amphetamines Screen Negative (NEGATIVE) 07/20/18 13:30 U Benzodiazepines Scrn Negative (NEGATIVE) 07/20/18 13:30 U Oth Cocaine Metabols Positive (NEGATIVE) H 07/20/18 13:30 U Cannabinoids Screen Negative (NEGATIVE) 07/20/18 13:30 Alcohol, Quantitative < 10 mg/dl (0-10) 07/15/18 17:02 Attending/Attestation - Attestation I have personally seen and examined this patient.: Yes I have fully participated in the care of the patient.: Yes I have reviewed all pertinent clinical information, including history, physical exam and plan: Yes Notes (Text): 07/22/18 18:58 This is a late entry. Care of this patient and discharge instructions were gone over with resident Dr. Peña. Ryan Dykes D.O.
[2018-07-21] MEDS ORDERED: Albuterol 0.083% Inhal Sol (2.5 mg/3 mL) UD INH PRN (13:42)
--- NOTE | 2018-07-21 14:10 | CON ---
DATE: 07/20/2018 NEPHROLOGY CONSULTATION HISTORY OF PRESENT ILLNESS: The patient is a 47-year-old male with past medical history of hypertension, diabetes (since 20 years), CAD status post stents, hepatitis B, schizoaffective disorder, depression and substance abuse, initially admitted to inpatient psychiatric unit for depression and auditory hallucinations. The patient subsequently transferred to medical floor due to hypotension. Nephrology being consulted for acute kidney injury and hyperkalemia. The patient reports diarrhea since yesterday with multiple episodes; had two episodes of watery diarrhea today; otherwise reports no associated nausea or vomiting. Appetite has been subpar with the patient eating less than half of his meals. The patient is also reporting dizziness on ambulation. He denies any issues urinating. No dysuria. Denies any fevers or chills. The patient does have right hip chronic pain for which he uses ibuprofen twice a day. The patient was also getting p.r.n. ibuprofen during admission. PAST MEDICAL HISTORY: As above. Reports being treated for hepatitis B recently. Review of records indicate acute kidney injury on two other admission that where thought to be prerenal etiology by the consulting fire fighter [facility]. The patient is also status post pacemaker because of what he reports as passing out. SOCIAL HISTORY: Current smoker, cocaine positive. FAMILY HISTORY: Both parents with diabetes. REVIEW OF SYSTEMS: CONSTITUTIONAL: No fevers or chills. HEENT: Reports blurry vision. Denies any dysphagia or odynophagia. RESPIRATORY: No difficulty breathing. CARDIOVASCULAR: No chest pain or palpitations. GI: As per HPI. : As per HPI. MUSCULOSKELETAL: As per HPI. PSYCHIATRIC: History of depression and auditory hallucinations. SKIN: Denies any pruritus or rash. NEUROLOGIC: Denies any numbness in feet. PHYSICAL EXAMINATION: VITAL SIGNS: Blood pressure 102/67, heart rate 99, temperature 98.6, and O2 sats 96% on 2 liters via nasal cannula. Blood pressure yesterday evening as well as 80/56. GENERAL: In no distress, conversing coherently in full sentences. HEENT: Moist mucous membranes. Nonicteric. No cervical lymphadenopathy. RESPIRATORY: Lungs are clear to auscultation bilaterally. No rales. No rhonchi. No wheezes. CARDIOVASCULAR: Heart sounds S1 and S2 normal. No murmurs. No gallops. No rubs. GI: Abdomen is soft and nondistended, some tenderness to deep palpation. : No bladder distention. EXTREMITIES: No leg edema. SKIN: Warm. No cyanosis. NEUROLOGIC: No numbness in feet. No resting tremor overtly. PSYCHIATRIC: Normal mood. Not agitated. LABORATORY DATA: CBC; WBC 7.8, hemoglobin 10.2, hematocrit 31.1, and platelets 261. Chemistry panel from this morning; sodium 135, potassium 5.4, chloride 101, bicarb 23, BUN 31, creatinine 1.7, glucose 130, calcium 8.7, phosphorus 4, magnesium 2.9. AST 34, ALT 28, troponin 0.031, albumin 3.8. UA; 1+ leukocyte esterase, 20 wbc's per high power field, 1+ rbc per high power field, 12 squamous epithelial cells, few bacteria. U-tox positive for cocaine. ASSESSMENT AND PLAN: 1. Acute kidney injury. The patient with gastrointestinal losses along with compromised renal autoregulation due to being on lisinopril and ibuprofen; with evidence of volume depletion with the patient having hypotension and orthostatic symptoms; also, with concomitant hyperkalemia. I agree with intravenous fluids with NS at 100 mL per hour. Agree with holding lisinopril. Should avoid all non-steroidal anti-inflammatory drugs. The patient counseled regarding this as well. Placing on low-potassium diet. May have an element of hyporeninemic hyperaldosternism in the setting of diabetes, may benefit from Florinef if potassium remains elevated. 2. Hypertension. The patient with recent hypotension. Blood pressure medications currently on hold (amlodipine and lisinopril). We will recommend to avoid lisinopril altogether as the patient frequently gets volume depleted. 3. Hypermagnesemia in the setting of being even magnesium containing laxative as well as being in acute renal failure. We will recommend to give lactulose or MiraLax instead if needed. Thank you for this referral. We will be following closely. Ronnie Saldana MD
[2018-07-21] MEDS: Sodium Chloride 0.9% 1,000 ML IV SCH (14:41)
--- NOTE | 2018-07-21 16:35 | CP.PCM.PN ---
Subjective - Date & Time of Evaluation Date of Evaluation: 07/21/18 Time of Evaluation: 12:30 - Subjective Subjective: Nephro Progress Note for Dr. Shana Rodriguez DO, IM PGY-3 Patient seen and examined at bedside. Eating lunch at time of exam. Denies further diarrhea or dizziness currently, no acute complaints. Instructed patient to avoid any further use of NSAIDs, including ibuprofen; pt expressed understanding and agreement. Pending return to psych floor as per primary team. Objective - Vital Signs/Intake and Output Vital Signs (last 24 hours): Temp Pulse Resp BP Pulse Ox 97.7 F 81 20 105/60 95 07/21/18 07:00 07/21/18 12:35 07/21/18 07:00 07/21/18 07:00 07/21/18 07:00 Intake and Output: 07/21/18 07/21/18 06:59 18:59 Intake Total 800 Balance 800 - Medications Medications: Current Medications Albuterol Sulfate (Albuterol 0.083% Inhal Bri (2.5 Mg/3 Ml) Ud) 2.5 mg INH RQ6 PRN PRN Reason: Shortness of Breath Arformoterol Tartrate (Brovana) 15 mcg INH RQ12@1000,2200 [facility] Aspirin (Ecotrin) 81 mg PO DAILY [facility] Last Admin: 07/21/18 09:42 Dose: 81 mg Budesonide (Pulmicort Respules) 0.25 mg INH RQ12 [facility] Dextrose (Dextrose 50% Inj) 0 ml IVP .STAT PRN; Protocol PRN Reason: Hypoglycemia Protocol Dextrose (Glutose 15) 0 gm PO .ONCE PRN; Protocol PRN Reason: Hypoglycemia Protocol Enoxaparin Sodium (Lovenox) 30 mg SC DAILY [facility] Last Admin: 07/21/18 09:41 Dose: 30 mg Escitalopram Oxalate (Lexapro) 10 mg PO DAILY [facility] Last Admin: 07/21/18 09:42 Dose: 10 mg Famotidine (Pepcid) 20 mg PO BID [facility] Last Admin: 07/21/18 09:42 Dose: 20 mg Glucagon (Glucagen Diagnostic Kit) 0 mg IM .STAT PRN; Protocol PRN Reason: Hypoglycemia Protocol Dextrose (Dextrose 5% In Water 1000 Ml) 1,000 mls @ 0 mls/hr IV .Q0M PRN; Protocol PRN Reason: Hypoglycemia Protocol Insulin Aspart (Novolog) 20 unit SC AC [facility] Last Admin: 07/21/18 11:18 Dose: Not Given Insulin Aspart (Novolog) 0 unit SC ACHS [facility]; Protocol Last Admin: 07/21/18 11:19 Dose: Not Given Insulin Glargine (Lantus) 45 unit SC HS [facility] Last Admin: 07/20/18 22:20 Dose: Not Given Lisinopril (Zestril) 10 mg PO DAILY [facility] Last Admin: 07/19/18 09:18 Dose: 10 mg Risperidone (Risperdal Tab) 2 mg PO BID [facility] Last Admin: 07/21/18 09:42 Dose: 2 mg Rosuvastatin Calcium (Crestor) 20 mg PO HS [facility] Last Admin: 07/20/18 22:25 Dose: 20 mg Trazodone HCl (Desyrel) 50 mg PO HS PRN PRN Reason: Insomnia - Labs Labs: 07/21/18 08:42 07/21/18 08:42 - Constitutional Appears: Non-toxic, No Acute Distress - Head Exam Head Exam: ATRAUMATIC, NORMAL INSPECTION, NORMOCEPHALIC - Eye Exam Eye Exam: Normal appearance. absent: Conjunctival injection, Scleral icterus - ENT Exam ENT Exam: Mucous Membranes Moist Additional comments: eating lunch at time of exam, swallowing without difficulty - Neck Exam Neck Exam: absent: Thyromegaly - Respiratory Exam Respiratory Exam: Clear to Ausculation Bilateral, NORMAL BREATHING PATTERN. absent: Accessory Muscle Use, Chest Wall Tenderness, Decreased Breath Sounds, Rales, Rhonchi, Wheezes - Cardiovascular Exam Cardiovascular Exam: REGULAR RHYTHM, RRR, +S1, +S2. absent: Bradycardia, Tachycardia, Irregular Rhythm, JVD, +S4 - GI/Abdominal Exam GI & Abdominal Exam: Soft, Normal Bowel Sounds. absent: Distended, Firm, Rigid, Tenderness - Extremities Exam Extremities Exam: absent: Joint Swelling, Pedal Edema - Neurological Exam Additional comments: awake and alert, moving all extremities spontaneously follows commands appropriately feeding self without issue - Psychiatric Exam Additional comments: flat/blunted affect - Skin Skin Exam: Dry, Intact, Normal Color, Warm Assessment and Plan - Assessment and Plan (Free Text) Assessment: This is a 47 yo AA M with PMH of HTN, DM, CAD s/p stenting, Hep B, Schizoaffective disorder, depression, and substance abuse who presented for depression and auditory hallucinations, and was later admitted to the medical floor for symptomatic hypotension with dizziness. Nephro consulted for MAKEDA. Plan: 1) Hypotension 2) MAKEDA 3) DM 4) CAD s/p stenting 5) Hx Hep B 6) Schizoaffective Disorder and Depression 7) Hx substance abuse -Suspect pre-renal etiology of MAKEDA due to GI losses (diarrhea) and ACEi use (Lisinopril) Cr improved to 1.1 today (was 1.7), back to baseline Given multiple prior admissions for MAKEDA, would recommend against further ACEi usage, recommend Norvasc instead for BP control Avoid all further NSAID use, again counselled patient in this, he expressed understanding and agreement Encourage consistent PO fluid intake now that pt off IVF -Recovering renal function, but still recommend against magnesium-containing laxatives given recent MAKEDA, recommend instead lactulose or Miralax Patient seen, reviewed, and discussed with attending, Dr. Saldana.
--- NOTE | 2018-07-21 18:53 | CARD ---
APPROVED REPORT Date of service: 07/21/2018 EXAM: Two-dimensional and M-mode echocardiogram with Doppler and color Doppler. Other Information Quality : GoodRhythm : INDICATION Cardiac Disease: CAD Surgery/Intervention Status/Post Intervention: Stent RISK FACTORS Hypertension Obesity Diabetes 2D DIMENSIONS IVSd1.0 (0.7-1.1cm)LVDd5.2 (3.9-5.9cm) PWd1.0 (0.7-1.1cm)LA Iclujl08 (18-58mL) LVDs3.2 (2.5-4.0cm)FS (%) 38.4 % LVEF (%)68.3 (>50%)LVEF (She[place]'s)78.13 % M-Mode DIMENSIONS RVDd2.84 (2.1-3.2cm)Left Atrium (MM)3.85 (2.5-4.0cm) IVSd1.05 (0.7-1.1cm)Aortic Root3.63 (2.2-3.7cm) LVDd5.94 (4.0-5.6cm)Aortic Cusp Exc.2.54 (1.5-2.0cm) PWd0.87 (0.7-1.1cm)FS (%) 48 % LVDs3.11 (2.0-3.8cm)LVEF (%)78 (>50%) Aortic Valve AI P 1/2 [id number] Mitral Valve MV E Kmclwvet37.2cm/sMV A Xihanmmx55.9cm/sE/A ratio1.5 TDI Lateral E' Peak V11.32cm/sMedial E' Peak V12.48cm/sE/Lateral E'6.5 E/Medial E'5.9 Tricuspid Valve TR Peak [id number]/sTR Peak Gr.[id number] LEFT VENTRICLE The left ventricle is normal size. There is normal left ventricular wall thickness. Left ventricle systolic function is normal. The Ejection Fraction is >70%. There is normal LV segmental wall motion. The left ventricular diastolic function is normal. There is no ventricular septal defect visualized. RIGHT VENTRICLE The right ventricle is normal size. The right ventricular systolic function is normal. ATRIA The left atrium size is normal. The right atrium size is normal. AORTIC VALVE The aortic valve is mildly sclerotic. The aortic valve is tri-cuspid. There is mild aortic regurgitation. There is no aortic valvular stenosis. MITRAL VALVE The mitral valve is normal in structure. There is no evidence of mitral valve prolapse. There is no mitral valve regurgitation noted. TRICUSPID VALVE The tricuspid valve is normal in structure. There is trace tricuspid regurgitation. Right ventricular systolic pressure is estimated at less than 30 mmHg. There is no pulmonary hypertension. PULMONIC VALVE The pulmonary valve is normal in structure. There is trace pulmonic valvular regurgitation. GREAT VESSELS The aortic root is mildly enlarged. 3.8 cm The ascending aorta is normal in size. The IVC is normal in size and collapses >50% with inspiration. PERICARDIAL EFFUSION There is no pericardial effusion. <Conclusion> Left ventricle systolic function is normal. The Ejection Fraction is >70%. The left ventricular diastolic function is normal. There is mild aortic regurgitation.
[2018-07-21] MEDS: Budesonide 0.25 mg/2 ml Inhal Susp UD INH SCH (20:33)
[2018-07-21] MEDS: (Lantus) Insulin Glargine, Recombinant SC SCH (21:36)
[2018-07-21] MEDS: Arformoterol 15 mcg/2 ml Inh Sol INH SCH (21:56)
--- NOTE | 2018-07-21 23:25 | PCM.PYCHPN ---
Psychiatric Progress Note - Psychiatric Progress Note Patient seen today, length of contact: 16 min Patient Chief Complaint: "I am tired" Problems Identified/Issues Discussed: The pt is seen again, chart reviewed, and case is discussed with the team. He was transferred to medicine for hypotension and seen there and back in psych today [place] now. Still somewhat depressed and has vague AH No longer suicidal Support given Will be d/c'ed after more stabilization Medication Change: No (meds change daily) Medical Record Reviewed: Yes Mental Status Examination - Cognitive Function Orientation: Person, Place, Situation, Time Memory: Intact Attention: WNL Concentration: Poor Association: WNL Fund of Knowledge: WNL - Mood Mood: Depressed, Anxious - Affect Affect: Constricted - Speech Speech: Appropriate - Formal Thought Process Formal Thought Process: Delusions, Paranoia, Circumstantial - Suicidal Ideation Suicidal Ideation: No - Homicidal Ideation Homicidal Ideation: No Goal/Treatment Plan - Goal/Treatment Plan Need for Continued Stay: Severe depression anxiety, Discharge may exacerbated symptoms, Severe functional impairment Progress Toward Problem(s) and Goals/Treatment Plan: Risperidone AH and paranoia Lexapro for depression and anxiety Subutex taper Continue medical meds Attend groups and activities CBT and support Monitor labs Refer back to [facility] Outpt program
[2018-07-22 06:57] LABS: ALB/GLOB RATIO 1.3 (1.0-2.1); ALBUMIN 3.9 g/dL (3.5-5.0); ALT/SGPT 23 U/L (21-72); AST/SGOT 46 U/L (17-59); BLOOD UREA NITROGEN 11 mg/dL (9-20); CALCIUM 8.8 mg/dl (8.6-10.4); GFR NON-AFRICAN AMERICAN > 60
[2018-07-22 07:35] VITALS: RESP 18; O2SAT 98
[2018-07-22] MEDS: (Novolog) Insulin Aspart, Recombinant 100 u/ml 10 ml vial SC SCH ×7 (07:40→22:44)
[2018-07-22] MEDS: Budesonide 0.25 mg/2 ml Inhal Susp UD INH SCH ×2 (08:13→20:05)
[2018-07-22] MEDS: Arformoterol 15 mcg/2 ml Inh Sol INH SCH ×2 (09:12→21:51)
[2018-07-22] MEDS: Enoxaparin 30 mg Syringe SC SCH (09:13)
--- NOTE | 2018-07-22 12:04 | PCM.PYCHPN ---
Psychiatric Progress Note - Psychiatric Progress Note Patient seen today, length of contact: 16 min Patient Chief Complaint: "I am tired" Problems Identified/Issues Discussed: The pt is seen again, chart reviewed, and case is discussed with the team. He was transferred to medicine for hypotension and seen there and back in psych today [place] now. Still somewhat depressed and has vague AH No longer suicidal Support given Will be d/c'ed after more stabilization Medication Change: Yes (dc trazodone) Medical Record Reviewed: Yes Mental Status Examination - Cognitive Function Orientation: Person, Place, Situation, Time Memory: Intact Attention: WNL Concentration: Poor Association: WNL Fund of Knowledge: WNL - Mood Mood: Depressed, Anxious - Affect Affect: Constricted - Speech Speech: Appropriate - Formal Thought Process Formal Thought Process: Delusions, Paranoia, Circumstantial - Suicidal Ideation Suicidal Ideation: No - Homicidal Ideation Homicidal Ideation: No Goal/Treatment Plan - Goal/Treatment Plan Need for Continued Stay: Severe depression anxiety, Discharge may exacerbated symptoms, Severe functional impairment Progress Toward Problem(s) and Goals/Treatment Plan: Risperidone AH and paranoia Lexapro for depression and anxiety Subutex taper Continue medical meds Attend groups and activities CBT and support Monitor labs Refer back to [facility] Outpt program
--- NOTE | 2018-07-22 12:46 | CARD ---
APPROVED REPORT Date of service: 07/19/2018 EKG Measurement Heart [id number] ID [id number] <Conclusion> Normal sinus rhythm Nonspecific T wave abnormality Abnormal ECG
[2018-07-22 13:45] LABS: BASO % 0.4 % (0.0-2.0); HEMOGLOBIN 9.4 g/dL (12.0-18.0); LYMPH # 0.8 K/uL (1.0-4.3); LYMPH % 16.8 % (20.0-40.0); MEAN CELL VOLUME 80.3 fL (80.0-94.0); MEAN CORPUSCULAR HEMOGLOBIN 26.4 pg (27.0-31.0); MEAN CORPUSCULAR HGB CONC 32.8 g/dL (33.0-37.0); MEAN PLATELET VOLUME 7.4 fL (7.2-11.7); MONO # 0.5 K/uL (0.0-0.8); MONO % 9.2 % (0.0-10.0); NEUT # 3.6 K/uL (1.8-7.0); NEUT % 72.6 % (50.0-75.0); RBC 3.57 Mil/uL (4.40-5.90); RED CELL DISTRIBUTION WIDTH 16.5 % (11.5-14.5)
[2018-07-22 14:14] LABS: ALB/GLOB RATIO 1.4 (1.0-2.1); ALBUMIN 3.6 g/dL (3.5-5.0); ALT/SGPT 17 U/L (21-72); AST/SGOT 34 U/L (17-59); BLOOD UREA NITROGEN 11 mg/dL (9-20); CALCIUM 8.6 mg/dl (8.6-10.4); GFR NON-AFRICAN AMERICAN > 60
--- NOTE | 2018-07-22 15:08 | CP.PCM.PN ---
Subjective - Date & Time of Evaluation Date of Evaluation: 07/22/18 Time of Evaluation: 15:06 - Subjective Subjective: stable Objective - Vital Signs/Intake and Output Vital Signs (last 24 hours): Temp Pulse Resp BP Pulse Ox 98.4 F 87 18 103/64 98 07/22/18 07:34 07/22/18 07:34 07/22/18 07:34 07/22/18 07:34 07/22/18 07:34 - Medications Medications: Current Medications Albuterol Sulfate (Albuterol 0.083% Inhal Bri (2.5 Mg/3 Ml) Ud) 2.5 mg INH RQ6 PRN PRN Reason: Shortness of Breath Arformoterol Tartrate (Brovana) 15 mcg INH RQ12@1000,2200 [facility] Last Admin: 07/22/18 09:12 Dose: Not Given Aspirin (Ecotrin) 81 mg PO DAILY [facility] Last Admin: 07/22/18 09:12 Dose: 81 mg Budesonide (Pulmicort Respules) 0.25 mg INH RQ12 [facility] Last Admin: 07/22/18 08:13 Dose: Not Given Dextrose (Dextrose 50% Inj) 0 ml IVP .STAT PRN; Protocol PRN Reason: Hypoglycemia Protocol Dextrose (Glutose 15) 0 gm PO .ONCE PRN; Protocol PRN Reason: Hypoglycemia Protocol Enoxaparin Sodium (Lovenox) 30 mg SC DAILY [facility] Last Admin: 07/22/18 09:13 Dose: Not Given Escitalopram Oxalate (Lexapro) 10 mg PO DAILY [facility] Last Admin: 07/22/18 09:12 Dose: 10 mg Famotidine (Pepcid) 20 mg PO BID [facility] Last Admin: 07/22/18 09:12 Dose: 20 mg Glucagon (Glucagen Diagnostic Kit) 0 mg IM .STAT PRN; Protocol PRN Reason: Hypoglycemia Protocol Dextrose (Dextrose 5% In Water 1000 Ml) 1,000 mls @ 0 mls/hr IV .Q0M PRN; Protocol PRN Reason: Hypoglycemia Protocol Insulin Aspart (Novolog) 20 unit SC AC [facility] Last Admin: 07/22/18 11:33 Dose: Not Given Insulin Aspart (Novolog) 0 unit SC ACHS [facility]; Protocol Last Admin: 07/22/18 11:33 Dose: Not Given Insulin Glargine (Lantus) 45 unit SC HS [facility] Last Admin: 07/21/18 21:36 Dose: 45 units Lisinopril (Zestril) 10 mg PO DAILY [facility] Last Admin: 07/19/18 09:18 Dose: 10 mg Risperidone (Risperdal Tab) 2 mg PO BID [facility] Last Admin: 07/22/18 09:12 Dose: 2 mg Rosuvastatin Calcium (Crestor) 20 mg PO [facility] Last Admin: 07/21/18 21:35 Dose: 20 mg - Labs Labs: 07/22/18 13:41 07/22/18 13:28 - Constitutional Appears: Well - Head Exam Head Exam: ATRAUMATIC, NORMAL INSPECTION, NORMOCEPHALIC - Eye Exam Eye Exam: EOMI, Normal appearance, PERRL Pupil Exam: NORMAL ACCOMODATION, PERRL - ENT Exam ENT Exam: Mucous Membranes Moist, Normal Exam - Neck Exam Neck Exam: Full ROM, Normal Inspection. absent: Lymphadenopathy - Respiratory Exam Respiratory Exam: Clear to Ausculation Bilateral, NORMAL BREATHING PATTERN - Cardiovascular Exam Cardiovascular Exam: REGULAR RHYTHM, +S1, +S2, Murmur - GI/Abdominal Exam GI & Abdominal Exam: Soft, Normal Bowel Sounds. absent: Tenderness - Extremities Exam Extremities Exam: Full ROM, Normal Capillary Refill, Normal Inspection. absent: Joint Swelling, Pedal Edema - Back Exam Back Exam: NORMAL INSPECTION - Neurological Exam Neurological Exam: Alert, Awake, CN II-XII Intact, Normal Gait, Oriented x3 - Psychiatric Exam Psychiatric exam: Normal Affect, Normal Mood - Skin Skin Exam: Dry, Intact, Normal Color, Warm Assessment and Plan (1) Hypotension Assessment & Plan: IVF hydration Status: Acute (2) CAD (coronary artery disease) Assessment & Plan: cont asa no plavix ( stents 10 years ago ) Status: Acute (3) Hx of cardiac pacemaker Status: Acute (4) Cocaine abuse Status: Chronic (5) Diabetes mellitus Assessment & Plan: lisinopril for renal protection Status: Chronic (6) Dyslipidemia Assessment & Plan: statins Status: Chronic
[2018-07-22] MEDS: (Lantus) Insulin Glargine, Recombinant SC SCH (22:47)
[2018-07-23 07:00] VITALS: BP 122/70; PULSE 85; TEMP 98.2
[2018-07-23] MEDS: (Novolog) Insulin Aspart, Recombinant 100 u/ml 10 ml vial SC SCH ×4 (08:18→12:00)
[2018-07-23] MEDS: Budesonide 0.25 mg/2 ml Inhal Susp UD INH SCH (08:42)
[2018-07-23] MEDS: Arformoterol 15 mcg/2 ml Inh Sol INH SCH (10:31)
--- NOTE | 2018-07-23 11:01 | PCM.PYCHDC ---
Mental Status Examination - Mental Status Examination Orientation: Person, Place, Situation, Time Memory: Intact Mood: Anxious Affect: Constricted Speech: Appropriate Attention: WNL Concentration: WNL Association: WNL Fund of Knowledge: WNL Formal Thought Process: No Impairment Suicidal Ideation: No Current Homicidal Ideation?: No Discharge Summary - Discharge Note Reason for Hospitalization: Schizoaffective disorder Laboratory Data: Abnormal Lab Results 07/22/18 07/22/18 07/22/18 11:24 13:28 13:41 WBC 5.0 RBC 3.57 L Hgb 9.4 L Hct 28.6 L MCV 80.3 MCH 26.4 L MCHC 32.8 L RDW 16.5 H Plt Count 222 MPV 7.4 Neut % (Auto) 72.6 Lymph % (Auto) 16.8 L Will % (Auto) 9.2 Eos % (Auto) 1.0 Baso % (Auto) 0.4 Neut # (Auto) 3.6 Lymph # (Auto) 0.8 L Will # (Auto) 0.5 Eos # (Auto) 0.0 Baso # (Auto) 0.0 Sodium 139 Potassium 4.4 Chloride 101 Carbon Dioxide 26 Anion Gap 16 BUN 11 Creatinine 1.0 Est GFR ( Amer) > 60 Est GFR (Non-Af Amer) > 60 POC Glucose (mg/dL) 145 H Random Glucose 180 H D Calcium 8.6 Total Bilirubin 0.4 AST 34 ALT 17 L D Alkaline Phosphatase 47 Total Protein 6.1 L Albumin 3.6 Globulin 2.6 Albumin/Globulin Ratio 1.4 07/22/18 07/22/18 07/23/18 15:58 20:14 07:30 WBC RBC Hgb Hct MCV MCH MCHC RDW Plt Count MPV Neut % (Auto) Lymph % (Auto) Will % (Auto) Eos % (Auto) Baso % (Auto) Neut # (Auto) Lymph # (Auto) Will # (Auto) Eos # (Auto) Baso # (Auto) Sodium Potassium Chloride Carbon Dioxide Anion Gap BUN Creatinine Est GFR ( Amer) Est GFR (Non-Af Amer) POC Glucose (mg/dL) 155 H 75 158 H Random Glucose Calcium Total Bilirubin AST ALT Alkaline Phosphatase Total Protein Albumin Globulin Albumin/Globulin Ratio Consultations:: List each consultation separately and include: 1. Reason for request. 2. Findings. 3. Follow-up Summary of Hospital Course include:: 1. Description of specific treatment plan utilized for patients during their course of treatmen. 2. Summarize the time- course for resolution of acute symptoms and/or regressed behaviors. 3. Describe issues identified and worked on during hospitalization. 4. Describe medication utilized. 5. Describe medical problems identified and treated. 6. Reassessment of suicide risk Summary of Hospital Course: On admission: The patient is seen, chart reviewed and case discussed. He is well-known to the process description writer and staff here from numerous previous admissions. This is a 47-year-old -[place] male, single with no child, on disability, living alone in [place]. Currently, he reports depressive sxs and paranoia and AH telling him derogatory things or telling him to kill self. No plans or intentions now. He has been depressed for a week or so. He doesn;t think it is the cocaine. He gets admitted every other month between [facility] due to his noncompliance. He smokes 1/2 ppd cigarettes a day. Denies alcohol use but he used to drink in the past He still uses cocaine and he is now on 8 to 16 mg suboxone. He was once on 16 but dose is decreased. He claims it started by his current psychiatrist after he had been abusing heroin for a few months. It's not clear why he was kept on it and high dose with such a short use history. Nevertheless, it is confirmed by his pharmacy and [facility] [employer], and a detox is started. He wants to come off. Plus, he has a surgery coming up. PMH: DM, HTN psych hx: Schizophrenia (dx at 21y/o) Family psych hx: Depression (sister) Social hx: single, no children. Lives on his own. 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 Hospital course: The pt was admitted and started on treatment with psychotherapy, support, psychoeducation and medications. MO and CBT used. The pt attended groups and activities, as well as milieu therapy. All the risks and benefits of medications are discussed and the patient understood and agreed. The pt improved with the treatments provided. After care discussed with the patient. He will go back to his program in [place], stay away from opioids, drugs and alcohol. - Final Diagnosis (DSM 5) Condition upon Discharge: IMPROVED DSM 5: Schizoaffective d/o - depressed Cocaine use d/o - severe Opioid use d/o - severe on maintenance Disposition: HOME/ ROUTINE Follow-up Treatment Plan: Continue below medications after discharge. Follow after care plan as discussed. Use relapse prevention skills Return to ER or call 911 if suicidal, homicidal or symptoms relapse. Stay away from stress, alcohol and drugs. See primary doctor regularly and get labs. Prescriptions/Medication Reconciliation: Albuterol HFA [Ventolin HFA 90 mcg/actuation (8 g)] 1 puff INH RQ6 PRN 30 Days inhaler PRN Reason: Shortness Of Breath Aspirin [Ecotrin] 81 mg PO DAILY #30 tablet. Fluticasone/Vilanterol 100/25 [Breo Ellipta 100-25 MCG INH] 1 puff INH RQD 30 Days puff Insulin Aspart, Recombinant [Novolog] 20 unit SC AC 30 Days unit Insulin Glargine, Recombina [Lantus] 45 unit SC HS 30 Days unit Lisinopril [Zestril] 10 mg PO DAILY #30 tab Rosuvastatin Calcium [Crestor] 20 mg PO HS #30 tab
[2018-07-23] MEDS: Enoxaparin 30 mg Syringe SC SCH (11:05)
== END 2018-07-23 11:20 | disposition home or self-care (01) | DRG 430 ==
LOC: C.ER 16:25 → C.5E 19:11 → C.6T 07-19 21:23 → C.5E 07-21 13:30 → UNDODISIN 07-23 11:00
PROVIDERS: ADMIT Psychiatry & Neurology Psychiatry; ATTEND Psychiatry & Neurology Psychiatry
PROC: GZHZZZZ Group Psychotherapy (ICD-10-PCS; principal; 2018-07-15)
PROC: HZ2ZZZZ Detoxification Services for Substance Abuse Treatment (ICD-10-PCS; 2018-07-15)
PROC: HZ52ZZZ Individual Psychotherapy for Substance Abuse Treatment, Cognitive-Behavioral (ICD-10-PCS; 2018-07-15)
PROC: HZ59ZZZ Individual Psychotherapy for Substance Abuse Treatment, Supportive (ICD-10-PCS; 2018-07-15)
PROC: HZ56ZZZ Individual Psychotherapy for Substance Abuse Treatment, Psychoeducation (ICD-10-PCS; 2018-07-15)
PROC: HZ42ZZZ Group Counseling for Substance Abuse Treatment, Cognitive-Behavioral (ICD-10-PCS; 2018-07-15)
PROC: HZ46ZZZ Group Counseling for Substance Abuse Treatment, Psychoeducation (ICD-10-PCS; 2018-07-15)
PROC: GZ58ZZZ Individual Psychotherapy, Cognitive-Behavioral (ICD-10-PCS; 2018-07-15)
PROC: GZ56ZZZ Individual Psychotherapy, Supportive (ICD-10-PCS; 2018-07-15)
DX: F25.8 Other schizoaffective disorders (principal); N17.9 Acute kidney failure, unspecified; B19.10 Unspecified viral hepatitis B without hepatic coma; E11.65 Type 2 diabetes mellitus with hyperglycemia; E87.5 Hyperkalemia; F11.10 Opioid abuse, uncomplicated; F14.20 Cocaine dependence, uncomplicated; I11.0 Hypertensive heart disease with heart failure; I50.9 Heart failure, unspecified; J44.9 Chronic obstructive pulmonary disease, unspecified; E86.0 Dehydration; E66.9 Obesity, unspecified; E78.00 Pure hypercholesterolemia, unspecified; E83.41 Hypermagnesemia; F31.9 Bipolar disorder, unspecified; I25.10 Atherosclerotic heart disease of native coronary artery without angina pectoris; K21.9 Gastro-esophageal reflux disease without esophagitis; R45.851 Suicidal ideations; I95.1 Orthostatic hypotension; F41.8 Other specified anxiety disorders; Z91.19 Patient's noncompliance with other medical treatment and regimen; Z95.0 Presence of cardiac pacemaker; Z95.5 Presence of coronary angioplasty implant and graft